=== PATIENT | female | born 1940 | race Caucasian/White ===

== ENCOUNTER 2022-10-28 12:33 | Outpatient (OUT) | payer MEDICARE, SELFPAY ==
--- NOTE | 2022-10-28 13:23 | CA_ITS ---
Patient: VICKY RUSSELL Exam Date: 10/28/2022 : 1940 Gender:F Ordering : DR LUPE RUFFIN M.D. Admission #: [id number] Family : Order #: [id number] CLICK HERE TO VIEW EXAM ECHOCARDIOGRAM REPORT PROCEDURE: CA ECHO DOPPLER COMPLETE INDICATIONS: Nonrheumatic aortic valve stenosis COMPARISON: None. DESCRIPTION: COMPLETE ECHOCARDIOGRAM Real-time transthoracic echocardiography with 2D, M-mode, spectral and color flow Doppler performed. QUALITY: Technical quality was good. LEFT VENTRICLE: Normal chamber size. Normal left ventricular wall thickness. Normal systolic function. LV EF: Normal left ventricular ejection fraction, (>55%). DIASTOLIC: Normal diastolic function. ATRIAL SEPTUM: Visually appears intact. LEFT ATRIUM: Normal chamber size. RIGHT ATRIUM: Normal chamber size. RIGHT VENTRICLE: Normal chamber size. Normal right ventricular systolic function. TRICUSPID VALVE: Normal mobility and thickness. No stenosis with no regurgitation. MITRAL VALVE: Normal mobility and thickness. No evidence of mitral valve stenosis. Mild mitral annular calcification. No mitral regurgitation. AORTIC VALVE: Normal trileaflet appearance. Moderately calcified aortic valve. Moderately diminished mobility. Doppler velocity suggest moderate aortic valve stenosis. DVI 0.31, COOPER 1.1 cm2. No aortic regurgitation. AORTIC ROOT: Normal diameter and appearance. PULMONIC VALVE: Not well visualized. No stenosis. No regurgitation. PERICARDIUM: No evidence of pericardial effusion. IVC: Collapses with inspirations. IVC is normal in size. PLEURA: CONCLUSION: 1. Normal ventricular systolic function. LVEF is 55 to 60%. 2. Moderate aortic valve stenosis. 3. No pericardial effusion. Adult Echocardiography Procedure Report Left Ventricle LVEDD (3.7 - 5.6 cm): 4.99 cm LVESD (2.2 - 4.0 cm): 3.17 cm LVIVS thickness (0.6 - 1.2 cm): 0.90 cm LVPW thickness (0.5 - 1.0 cm): 0.91 cm e': 0.06 m/s E - e': 9.90 LVOT Max Gradient: 2.79 mm[Hg] LVOT Area (cm2): 0.83 m/s Peak Velocity (LVOT): 0.83 m/s Mean Velocity (LVOT): 0.64 m/s LVOT Diameter 2.11 cm Left Atrium LA Volume Index (2D A2C): 30.15 ml/m2 Left Atrium Systolic Dimension: 3.38 cm Mitral Valve MV E to A Ratio: 0.62 Mitral Valve A-Wave Peak Velocity: 0.98 m/s Mitral Valve E-Wave Peak Velocity: 0.61 m/s Right Ventricle Aorta AO Root Diam: 3.28 cm Aortic Valve AoV Area (Peak Jose): 1.20 cm2, 1.10 cm2 AoV Area (VTI): 1.56 cm2, 1.42 cm2 Peak Velocity(Antegrade Flow): 2.64 m/s, 2.33 m/s, 2.31 m/s Peak Gradient(Antegrade Flow): 27.85 mm[Hg], 21.69 mm[Hg], 21.35 mm[Hg] Mean Velocity(Antegrade Flow): 1.99 m/s, 1.38 m/s, 1.50 m/s Mean Gradient(Antegrade Flow): 17.16 mm[Hg], 9.99 mm[Hg], 10.91 mm[Hg] Velocity Time Integral: 51.09 cm, 42.65 cm, 45.52 cm Tricuspid Valve Pulmonic Valve Peak Velocity: 0.94 m/s Peak Gradient: 2.31 mm[Hg], 5.00 mm[Hg] Right Atrium Right Atrium Systolic Pressure: 39.72 ml, 39.72 ml Dictated by: Alonzo Gale M.D. on 10/29/2022 at 18:51 Approved by: Alonzo Gale M.D. on 10/29/2022 at 18:54
== END 2022-10-28 12:34 | disposition home or self-care (01) ==
LOC: CARD 12:34
PROVIDERS: PCP Internal Medicine; Visit Provider Internal Medicine
DX: I35.0 Nonrheumatic aortic (valve) stenosis (principal)
CPT/HCPCS: 93306

== ENCOUNTER 2022-10-30 08:07 | Outpatient (OUT) | payer MEDICARE, SELFPAY ==
--- NOTE | 2022-10-30 08:10 | MR_ITS ---
[address] [address] Patient Name: VICKY RUSSELL MRN: [id number] date: 1940 Sex: F Assigned Patient Location: MRI Current Patient Location: MRI Accession/Order Number: [id number] Exam Date: 10/30/2022 08:35 Report Date: 10/30/2022 11:00 At the request of: LUPE RUFFIN Procedure: MR lumbar spine wo con EXAMINATION: MR lumbar spine wo con HISTORY: Spinal Stenosis Of Lumbar Region M48.062 COMPARISON: No relevant comparison available. TECHNIQUE: A variety of imaging planes and parameters were utilized for visualization of suspected pathology. FINDINGS: For the purposes of numbering, sagittal T2 image # 9 extends from the T11 vertebral body superiorly to the S4 level inferiorly. PARASPINAL AREA: Normal with no visible mass. BONES: Rotatory dextrocurvature centered at L3-L4 CORD/CAUDA EQUINA: Normal caliber, contour, and signal intensity. DISC LEVELS: 12-L1: Early degenerative disc disease is present without focal protrusion or neural impingement. L1-L2: Early degenerative disc disease is present without focal protrusion or neural impingement. L2-L3: Disc collapse, left greater than right. No central or foraminal stenosis L3-L4: Disc collapse, left greater than right. Mild diffuse disc/osteophyte complex. No central or foraminal stenosis. L4-L5: Severe disc space narrowing with endplate sclerosis. Mild diffuse disc/osteophyte complex and facet osteoarthropathy. No central or foraminal stenosis L5-S1: Disc desiccation. Posterior broad-based disc/osteophyte complex and facet osteoarthropathy. No central canal or left foraminal stenosis. Moderate to severe narrowing of the right neural foramen, sagittal image 11 MR/MR lumbar spine wo con IMPRESSION: Degenerative changes most significant at L5-S1 where there is severe narrowing of the right neural foramen Electronically authenticated by: CALVIN SO Date: 10/30/2022 11:00
== END 2022-10-30 08:08 | disposition home or self-care (01) ==
LOC: MRI 08:07
PROVIDERS: PCP Internal Medicine; Visit Provider Internal Medicine
DX: M48.062 Spinal stenosis, lumbar region with neurogenic claudication (principal)
CPT/HCPCS: 72148

== ENCOUNTER 2022-11-10 11:26 | Outpatient (OUT) | payer MEDICARE, SELFPAY ==
--- NOTE | 2022-11-10 12:00 | MM_ITS ---
Patient: VICKY RUSSELL Exam Date: 11/10/2022 : 1940 Gender:F Ordering : DR LUPE RUFFIN M.D. Admission #: [id number] Family : Order #: [id number] CLICK HERE TO VIEW EXAM RADIOLOGY REPORT PROCEDURE: MM TOMOSYNTHESIS SCREENING BI COMPARISON: MG MAMM SCREEN 3D SHEILA CAD, 10/20/2021. INDICATIONS: Screening mammogram Z12.31 Calculator Name NCI Breast Cancer Risk Assessment Tool 5 Year Breast Cancer Risk 1.70% Lifetime Breast Cancer Risk 2.70% Personal Breast Cancer No Personal Ovarian Cancer No Treatments None Family Cancers None LOCATION: [facility] BREAST COMPOSITION: Scattered areas fibroglandular density. FINDINGS: DIAGNOSTIC CATEGORY 0--INCOMPLETE: NEED ADDITIONAL IMAGING EVALUATION. Scattered benign-appearing calcifications are present. RIGHT BREAST: Increase in now 1.1 cm focal asymmetry lower outer quadrant, posterior breast. Spot imaging and ultrasound follow up recommended. . LEFT BREAST: No significant suspicious finding. Stable microclip marker upper inner quadrant, mid breast RECOMMENDATIONS: ADDITIONAL MAMMOGRAPHIC VIEWS REQUIRED: RIGHT BREAST - spot compression ULTRASOUND: RIGHT BREAST PLEASE NOTE: A NORMAL MAMMOGRAM DOES NOT EXCLUDE THE POSSIBILITY OF BREAST CANCER. A CLINICALLY SUSPICIOUS PALPABLE LUMP SHOULD BE BIOPSIED. Dictated by: Jeramie Stout MD on 11/10/2022 at 14:13 Approved by: Jeramie Stout MD on 11/10/2022 at 14:18
== END 2022-11-10 11:27 | disposition home or self-care (01) ==
LOC: MAMMO 11:27
PROVIDERS: PCP Internal Medicine; Visit Provider Internal Medicine
DX: Z12.31 Encounter for screening mammogram for malignant neoplasm of breast (principal); R92.8 Other abnormal and inconclusive findings on diagnostic imaging of breast
CPT/HCPCS: 77063; 77067

== ENCOUNTER 2022-11-19 13:27 | Outpatient (OUT) | payer MEDICARE, SELFPAY ==
--- NOTE | 2022-11-19 13:31 | MM_ITS ---
Patient: VICKY RUSSELL Exam Date: 11/19/2022 : 1940 Gender:F Ordering : DR THANIA NOVAK Admission #: [id number] Family : DR LUPE RUFFIN M.D. Order #: [id number] CLICK HERE TO VIEW EXAM RADIOLOGY REPORT PROCEDURE: MM DIAGNOSTIC MAMMO UNILAT RT, 11/19/2022, 13:22 US BREAST RT LIMITED, 11/19/2022, 13:47 COMPARISON: MM TOMOSYNTHESIS SCREENING BI, 11/10/2022. MG MAMM SCREEN 3D SHEILA CAD, 10/20/2021. MG MAMM SCREEN 3D SHEILA CAD, 09/16/2020. MG MAMM SCREEN SHEILA W CAD, 02/28/2019. INDICATIONS: Abnormal right breast mammogram R92.8 Calculator Name NCI Breast Cancer Risk Assessment Tool 5 Year Breast Cancer Risk 1.70% Lifetime Breast Cancer Risk 2.70% Personal Breast Cancer No Personal Ovarian Cancer No Treatments None Family Cancers None LOCATION: [facility] BREAST COMPOSITION: Scattered areas fibroglandular density. FINDINGS: DIAGNOSTIC CATEGORY 2--BENIGN FINDING: RIGHT BREAST: Spot magnification views demonstrate subtle opacity within posterior lower-outer quadrant suggestive of fibroglandular tissue. Ultrasound evaluation demonstrates normal appearing fibroglandular tissue; no suspicious findings. RECOMMENDATIONS: ROUTINE MAMMOGRAM AND CLINICAL EVALUATION IN 12 MONTHS. PLEASE NOTE: A NORMAL MAMMOGRAM DOES NOT EXCLUDE THE POSSIBILITY OF BREAST CANCER. A CLINICALLY SUSPICIOUS PALPABLE LUMP SHOULD BE BIOPSIED. Dictated by: Keyshawn Whitt M.D. on 11/19/2022 at 14:23 Approved by: Keyshawn Whitt M.D. on 11/19/2022 at 14:25
== END 2022-11-19 13:28 | disposition home or self-care (01) ==
LOC: MAMMO 13:27
PROVIDERS: PCP Internal Medicine; Visit Provider Physician Assistant
DX: R92.8 Other abnormal and inconclusive findings on diagnostic imaging of breast (principal)
CPT/HCPCS: 76642; 77065

== ENCOUNTER 2024-08-24 07:52 | Outpatient (OUT) | payer MEDICARE, SELFPAY ==
--- NOTE | 2024-08-24 08:26 | PM.CN ---
Consult Note: HPI Data of Consult Patient: known to practice within the last 3 years Requesting Physician: Rosenda Israel NP Primary Care Provider: LUPE RUFFIN Consult Narrative Reason for consult: back pain Narrative: Oriana Martin a pleasant 83 year old female presents for evaluation of chronic low back pain >3 years with worsening low back and left leg pain over the last 4 months. Pt has failed to benefit from > 6 weeks of provider guided HEP, heat, ice, tylenol, cannot take NSAIDs due to GERD. denies falls or injury. pain 1/10 aching increasing to 9/10 with standing, walking, sitting, housework, lifting. Pain mildly improved with lying down. currently utilizing tylenol, gabapentin, and magnesium with mild relief. cc:: CC: Rosenda Israel NP Review of Systems ROS Status of ROS 10 or more systems reviewed and unremarkable except as noted in history and below Musculoskeletal Reports: back pain and extremity pain Exam Constitutional Documenting provider has reviewed patient's vital signs: yes Common normals: no apparent distress, oriented x3, healthy appearing, alert and well nourished General appearance: cooperative HENMT Common normals: normocephalic, hearing grossly normal bilaterally and moist oral mucous membranes Head and scalp: normocephalic Eye Common normals: PERRL Pupil: PERRL Neck & C-Spine Common normals: full ROM General: normal visual inspection Chest Common normals: inspection of chest normal Respiratory Common normals: normal respiratory effort, no retractions and no use of accessory muscles Back & Pelvis Lumbar spine/lower back: ROM limited, pain with ROM, lumbar spinal tenderness Lumbar spinal tenderness location: L3, L4 and L5 and straight leg raise positive left Sacroiliac joints: SI joint(s) abnormal Other: decreased sensation left L4,5,S1 strength 4/5 in LLE and 5/5 in RLE left sij positive berlin(patricks), gaenslens, thigh thrust, compression test Extremity Common normals: normal to inspection and full ROM Neuro Common normals: oriented x3 Sensorium/orientation: alert Psych Common normals: mental status grossly normal, thought process normal, cooperative, affect normal, speech normal and activity/motor behavior normal Speech: normal speech Thought process: normal thought process Results Additional Findings Additional findings: If on a controlled substance or opioids, I have checked an [place] report on this patient and there are no aberrancies noted in the prescribing history.??If on a controlled substance or opioid a drug screen was completed and reviewed within the last year, and if there has not been a drug screen completed we ordered one today to monitor higher risk, state monitored pain medication use. As part of providing excellent, safe, comprehensive care, the following was completed at our patient's visit: 1. A medication reconciliation and review to ensure accurate knowledge of current/active medications, including asking our patients to inform us about any [id number] medications or herbal remedies/nutritional supplements/alternative remedies. 2. A review to specifically ensure our patients have had annual screening for screening for depression, screening for tobacco use, and screening for unhealthy alcohol use. For concerning screenings had a discussion with the patient, provided patient education, and recommended follow-up with primary care provider when appropriate. If patient noted with a risk of falling, they received education on strength, gait, and balance training to prevent future risk of falling. Portions of this note may have been carried over from the previous visit and updated as appropriate. Please note this office utilizes paper charting in addition to the electronic medical record. A list of current medications, vitals, and PMH is available there as the clinical staff outside of myself do not have access to [email or web address] charting during the clinic day operations. As part of providing quality comprehensive care the current medications, vitals, and PMH were reviewed in the paper chart. Assessment and Plan Assessment and Plan (1) Lumbar stenosis with neurogenic claudication: Assessment and Plan: The patient has had over 3 months of moderate to severe low back and left leg pain with functional impairment and inadequate response to conservative care including NSAIDS (unless there are contraindication such as concurrent blood thinners), multiple oral or topical pain medications, and home exercise program/physical therapy.? Patient has completed >6 weeks of guided home exercise program and/or formal physical therapy program without relief of their symptoms.? I have reviewed the imaging of the lumbar spine and no red flags were identified.? The imaging from 11/01 reveals radiographic findings consistent with lumbar stenosis with NC, lumbar spondylosis, lumbar DDD The Oswestry Disability Index was completed, and the patient scored a 48%.? The patient noted the following:?? moderate to severe pain impacting ADLs, standing, sitting, travel, social life, and sleep (2) Lumbar spondylosis: (3) Sacroiliitis: Plan 83 year old female with chronic low back and left leg pain has failed conservative measures as noted above, will update lumbar xray with flexion and lumbar MRI without contrast in consideration of interventional therapy vs NS consultation. continue HEP as tolerated. continue current medications, declining additional medications at this time. f/u to review imaging
== END 2024-08-24 07:53 | disposition home or self-care (01) ==
LOC: PM 07:54
PROVIDERS: PCP Internal Medicine; Visit Provider Nurse Practitioner
DX: M48.062 Spinal stenosis, lumbar region with neurogenic claudication (principal); M51.369 Other intervertebral disc degeneration, lumbar region without mention of lumbar back pain or lower extremity pain; M46.1 Sacroiliitis, not elsewhere classified
CPT/HCPCS: 72114; G0463

== ENCOUNTER 2024-08-24 08:41 | Outpatient (OUT) | payer MEDICARE, SELFPAY ==
--- NOTE | 2024-08-24 09:02 | XR_ITS ---
The [place] [id number] Patient Name: VICKY RUSSELL MRN: [id number] date: 1940 Sex: F Assigned Patient Location: LAB Current Patient Location: LAB Accession/Order Number: [id number] Exam Date: 08/24/2024 10:20 Report Date: 08/24/2024 10:24 At the request of: ESME PADILLA NP Procedure: XR lumbar spine 6V w bending XR lumbar spine 6V w bending 08/24/2024 9:04 AM SIGNS AND SYMPTOMS: Chronic low back pain with left lower extremity radiculopathy PROTOCOLS: Frontal, lateral, oblique, and flexion-extension views of the lumbar spine COMPARISON: 10/30/2022 FINDINGS: There is a dextro convex curvature of the lumbar spine. There is severe intervertebral disc height loss at L2-L3, L3-4, and L4-5 with to moderate disc height loss at L5-S1. There is accompanying anterior osteophyte formation throughout. There is facet hypertrophy throughout. Flexion and extension view show no pathologic movement. Vertebral body heights are maintained. Mild degenerative changes are noted in the sacroiliac joints. Atherosclerotic changes are noted in the abdominal aorta. There is evidence of prior cholecystectomy. XR/XR lumbar spine 6V w bending IMPRESSION: Significant multilevel degenerative changes redemonstrated similar to the prior MRI. There is a dextro convex curvature. No pathologic movement on flexion or extension. Impression dictated by: Nikita Dean M.D. 08/24/2024 10:24 AM Dictation Location: [facility] Electronically authenticated by: [id number] Y Date: 08/24/2024 10:24
== END 2024-08-24 08:42 | disposition home or self-care (01) ==
LOC: LAB 08:43
PROVIDERS: PCP Internal Medicine; Visit Provider Nurse Practitioner
DX: M48.062 Spinal stenosis, lumbar region with neurogenic claudication (principal); M51.369 Other intervertebral disc degeneration, lumbar region without mention of lumbar back pain or lower extremity pain
CPT/HCPCS: 72114

== ENCOUNTER 2024-09-12 09:21 | Outpatient (OUT) | payer MEDICARE, SELFPAY ==
--- NOTE | 2024-09-12 09:26 | MR_ITS ---
The [address] [address] Patient Name: VICKY RUSSELL MRN: [id number] date: 1940 Sex: F Assigned Patient Location: MRI Current Patient Location: MRI Accession/Order Number: [id number] Exam Date: 09/12/2024 11:46 Report Date: 09/12/2024 11:51 At the request of: ESME PADILLA NP Procedure: MR lumbar spine wo con MR lumbar spine wo con 09/12/2024 10:24 AM SIGNS AND SYMPTOMS: Chronic low back pain with radiculopathy radiating into left lower extremity PROTOCOL: Multiplanar multisequence MR images of the lumbar spine without IV contrast COMPARISON: 10/30/2022 FINDINGS: There is a dextro convex curvature of the lumbar spine similar to the prior exam. The bones are in anatomic alignment otherwise. There is preservation of vertebral body heights. There is Schmorl's information the endplates at T12, L1, and L4. There is moderate severe disc height loss at L2-L3, L3-L4, and L4-5. There is mild disc height loss throughout otherwise. There is Modic type I endplate edema at T12-L1, L1-L2, and L5-S1. The conus terminates at the L1-L2 intervertebral disc level. No epidural or paraspinous fluid collection is appreciated. At T12-L1: There is a broad-based disc bulge with endplate osteophyte formation contributing to mild right neural foraminal narrowing. No spinal canal narrowing. At L1-L2: There is a broad-based disc bulge with a right foraminal focal disc protrusion. There is accompanying facet hypertrophy. There is mild left and moderate right neural foraminal narrowing with mild spinal canal narrowing. This is similar to the prior study. At L2-L3: There is a broad-based disc bulge with facet hypertrophy and endplate osteophyte formation. There is moderate left neural foraminal narrowing with mild spinal canal stenosis similar to the prior exam. At L3-L4: There is a broad-based disc bulge with endplate osteophyte formation and facet hypertrophy contributing to mild to moderate bilateral neural foraminal narrowing. There is posterior decompression without significant spinal canal narrowing. This is similar to the prior exam. At L4-L5: There is a broad-based disc bulge with endplate osteophyte formation and facet hypertrophy. There is moderate right and mild left neural foraminal narrowing. There is evidence of prior posterior decompression without spinal canal stenosis. This is unchanged. At L5-S1: There is a broad-based disc bulge with endplate osteophyte formation and facet hypertrophy. There is mild left and severe right neural foraminal narrowing with mass effect on the exiting right L5 nerve roots. This is unchanged. There is minimal spinal canal narrowing. MR/MR lumbar spine wo con IMPRESSION: At L5-S1: There is a broad-based disc bulge with endplate osteophyte formation and facet hypertrophy. There is mild left and severe right neural foraminal narrowing with mass effect on the exiting right L5 nerve roots. This is unchanged. There is minimal spinal canal narrowing. Additional but lesser degrees of degenerative changes are redemonstrated similar to the prior exam as above. Impression dictated by: Nikita Dean M.D. 09/12/2024 11:51 AM Dictation Location: [place] [address] Electronically authenticated by: [id number] Y Date: 09/12/2024 11:51
== END 2024-09-12 09:22 | disposition home or self-care (01) ==
LOC: MRI 09:21
PROVIDERS: PCP Internal Medicine; Visit Provider Nurse Practitioner
DX: M48.062 Spinal stenosis, lumbar region with neurogenic claudication (principal); M51.379 Other intervertebral disc degeneration, lumbosacral region without mention of lumbar back pain or lower extremity pain; M51.369 Other intervertebral disc degeneration, lumbar region without mention of lumbar back pain or lower extremity pain
CPT/HCPCS: 72148

== ENCOUNTER 2024-09-21 08:28 | Outpatient (OUT) | payer MEDICARE, SELFPAY ==
--- NOTE | 2024-09-21 08:59 | PM.CN ---
Consult Note: HPI Data of Consult Patient: known to practice within the last 3 years Requesting Physician: Rosenda Israel NP Primary Care Provider: LUPE RUFFIN Consult Narrative Reason for consult: back pain Narrative: Oriana Martin a pleasant 83 year old female presents for evaluation of chronic low back pain >3 years with worsening low back and left leg pain over the last 5 months. Pt has failed to benefit from > 6 weeks of provider guided HEP, heat, ice, tylenol, cannot take NSAIDs due to GERD. denies falls or injury. pain 5/10 sharp increasing to 9/10 with standing, walking, sitting, housework, lifting. Pain mildly improved with lying down. currently utilizing tylenol, gabapentin, and magnesium with mild relief. Recently underwent lumbar xray and MRI. cc:: CC: Rosenda Israel NP Review of Systems ROS Status of ROS 10 or more systems reviewed and unremarkable except as noted in history and below Musculoskeletal Reports: back pain and extremity pain Exam Constitutional Documenting provider has reviewed patient's vital signs: yes Common normals: no apparent distress, oriented x3, healthy appearing, alert and well nourished General appearance: cooperative HENMT Common normals: normocephalic, hearing grossly normal bilaterally and moist oral mucous membranes Head and scalp: normocephalic Eye Common normals: PERRL Pupil: PERRL Neck & C-Spine Common normals: full ROM General: normal visual inspection Chest Common normals: inspection of chest normal Respiratory Common normals: normal respiratory effort, no retractions and no use of accessory muscles Back & Pelvis Lumbar spine/lower back: ROM limited, pain with ROM, lumbar spinal tenderness Lumbar spinal tenderness location: L3, L4 and L5 and straight leg raise positive left Sacroiliac joints: SI joint(s) abnormal Other: decreased sensation left L4,5,S1 strength 4/5 in LLE and 5/5 in RLE left sij positive berlin(patricks), gaenslens, thigh thrust, compression test Extremity Common normals: normal to inspection and full ROM Neuro Common normals: oriented x3 Sensorium/orientation: alert Psych Common normals: mental status grossly normal, thought process normal, cooperative, affect normal, speech normal and activity/motor behavior normal Speech: normal speech Thought process: normal thought process Results Imaging Lumbar MRI: Attestation: I have reviewed the pertinent imaging results. Radiologist's impression: FINDINGS: There is a dextro convex curvature of the lumbar spine similar to the prior exam. The bones are in anatomic alignment otherwise. There is preservation of vertebral body heights. There is Schmorl's information the endplates at T12, L1, and L4. There is moderate severe disc height loss at L2-L3, L3-L4, and L4-5. There is mild disc height loss throughout otherwise. There is Modic type I endplate edema at T12-L1, L1-L2, and L5-S1. The conus terminates at the L1-L2 intervertebral disc level. No epidural or paraspinous fluid collection is appreciated. At T12-L1: There is a broad-based disc bulge with endplate osteophyte formation contributing to mild right neural foraminal narrowing. No spinal canal narrowing. At L1-L2: There is a broad-based disc bulge with a right foraminal focal disc protrusion. There is accompanying facet hypertrophy. There is mild left and moderate right neural foraminal narrowing with mild spinal canal narrowing. This is similar to the prior study. At L2-L3: There is a broad-based disc bulge with facet hypertrophy and endplate osteophyte formation. There is moderate left neural foraminal narrowing with mild spinal canal stenosis similar to the prior exam. At L3-L4: There is a broad-based disc bulge with endplate osteophyte formation and facet hypertrophy contributing to mild to moderate bilateral neural foraminal narrowing. There is posterior decompression without significant spinal canal narrowing. This is similar to the prior exam. At L4-L5: There is a broad-based disc bulge with endplate osteophyte formation and facet hypertrophy. There is moderate right and mild left neural foraminal narrowing. There is evidence of prior posterior decompression without spinal canal stenosis. This is unchanged. At L5-S1: There is a broad-based disc bulge with endplate osteophyte formation and facet hypertrophy. There is mild left and severe right neural foraminal narrowing with mass effect on the exiting right L5 nerve roots. This is unchanged. There is minimal spinal canal narrowing. Additional Findings Additional findings: If on a controlled substance or opioids, I have checked an [place]AR[place] report on this patient and there are no aberrancies noted in the prescribing history.??If on a controlled substance or opioid a drug screen was completed and reviewed within the last year, and if there has not been a drug screen completed we ordered one today to monitor higher risk, state monitored pain medication use. As part of providing excellent, safe, comprehensive care, the following was completed at our patient's visit: 1. A medication reconciliation and review to ensure accurate knowledge of current/active medications, including asking our patients to inform us about any [id number] medications or herbal remedies/nutritional supplements/alternative remedies. 2. A review to specifically ensure our patients have had annual screening for screening for depression, screening for tobacco use, and screening for unhealthy alcohol use. For concerning screenings had a discussion with the patient, provided patient education, and recommended follow-up with primary care provider when appropriate. If patient noted with a risk of falling, they received education on strength, gait, and balance training to prevent future risk of falling. Portions of this note may have been carried over from the previous visit and updated as appropriate. Please note this office utilizes paper charting in addition to the electronic medical record. A list of current medications, vitals, and PMH is available there as the clinical staff outside of myself do not have access to [employer] charting during the clinic day operations. As part of providing quality comprehensive care the current medications, vitals, and PMH were reviewed in the paper chart. Assessment and Plan Assessment and Plan (1) Lumbar stenosis with neurogenic claudication: Assessment and Plan: The patient has had over 3 months of moderate to severe low back and left leg pain with functional impairment and inadequate response to conservative care including NSAIDS (unless there are contraindication such as concurrent blood thinners), multiple oral or topical pain medications, and home exercise program/physical therapy.? Patient has completed >6 weeks of guided home exercise program and/or formal physical therapy program without relief of their symptoms.? I have reviewed the imaging of the lumbar spine and no red flags were identified.? The imaging reveals radiographic findings consistent with lumbar stenosis with NC, lumbar spondylosis, lumbar DDD The Oswestry Disability Index was completed, and the patient scored a 31%.? The patient noted the following:?? moderate to severe pain impacting ADLs, standing, sitting, travel, social life, and sleep We discussed the risks and benefits of the procedure with the patient, and we are NOT planning on using sedation as outlined in the guidelines from Medicare unless there is a documented reason that sedation would be strongly recommended.?? ?The procedure will be completed with fluoroscopic guidance.? (2) Lumbar spondylosis: (3) Sacroiliitis: Plan 83 year old female with chronic low back and left leg pain has failed conservative measures as noted above, lumbar xray and MRI reviewed with pt. Will proceed with left L4-5 L5-S1 TFESI under fluoroscopy for lumbar stenosis with NC. consider left SIJ injection if symptoms persist. medications reviewed, pt advised to increase gabapentin 300mg BID risks vs benefits reviewed. continue HEP as tolerated. f/u 2 weeks after injection
== END 2024-09-21 08:29 | disposition home or self-care (01) ==
LOC: PM 08:28
PROVIDERS: PCP Internal Medicine; Visit Provider Nurse Practitioner
DX: M48.062 Spinal stenosis, lumbar region with neurogenic claudication (principal); M47.816 Spondylosis without myelopathy or radiculopathy, lumbar region; M46.1 Sacroiliitis, not elsewhere classified
CPT/HCPCS: G0463

== ENCOUNTER 2024-10-02 10:34 | Day surgery (SDC) | payer MEDICARE, SELFPAY ==
--- OUTSIDE RECORDS SUMMARY | 2024-10-02 10:38 | XMS_ITS | Encounter Summary ---
Author Organization [facility] Address [address] [facility] [place] [address] Care Team Providers Care Hostess Party Sales Representative Name Role Phone Miguel Ray MD Unavailable [phone] Miguel Ray MD Primary Care Provider [phone] Encounter Details Date Type Department Care Team (Late Contact Info) Description 07/08/2023 Abstract [facility] [address] [facility] [address] [place] [address] Miguel Ray MD 112 [facility] 110 [place] [address] Social History Tobacco Use Types Packs/Day Years Used Date Smoking Tobacco: Never Smokeless Tobacco: Never Alcohol Use Standard Drinks/Week Comments Never 0 (1 standard drink = 0.6 oz pur e alcohol) Caffeine intake: coffee PHQ-2 Answer Date Recorded Patient Health Questionnaire-2 Score 0 10/12/2022 Comments Unknown Sex and Gender Information Value Date Recorded Sex Assigned at Not on file Legal Sex Female 6:59 PM EDT Gender Identity Not on file Sexual Orientation Not on file documented as of this encounter Plan of Treatment Upcoming Encounters Date Type Department Care Team (Late Contact Info) Description 10/25/2024 9:30 AM EDT Office Visit [facility] 112 [facility] 110 [place] [phone] Miguel Ray MD 112 [facility] 110 [place] [address] 11/09/2024 1:10 PM EDT Office Visit [facility] [address] [place] [address] Yaniv Jarrett, DPM FACFAS [address] [facility] [place] [address] documented as of this encounter Visit Diagnoses Not on filedocumented in this encounter Care Teams Hostess Party Sales Representative Relationship Specialty Start Date End Date Miguel Ray MD [address] [facility] 110 [place] [address] PCP - [employer] 04/12/22 Miguel Ray MD [address] [facility] 110 [place] [address] PCP - General Internal Medicine 09/08/22 documented as of this encounter
--- OUTSIDE RECORDS SUMMARY | 2024-10-02 10:38 | XMS_ITS | Encounter Summary ---
Author Organization [facility] Address [address] [facility] [place] [address] Care Team Providers Care Industrial Welder Name Role Phone Miguel Ray MD Unavailable [phone] Miguel Ray MD Primary Care Provider [phone] Encounter Details Date Type Department Care Team (Late Contact Info) Description 01/25/2024 Abstract [facility] 112 [facility] 110 [place] [address] Miguel Ray MD 112 [facility] 110 [place] [address] Social History Tobacco Use Types Packs/Day Years Used Date Smoking Tobacco: Never Smokeless Tobacco: Never Alcohol Use Standard Drinks/Week Comments Never 0 (1 standard drink = 0.6 oz pur e alcohol) Caffeine intake: coffee PHQ-2 Answer Date Recorded Patient Health Questionnaire-2 Score 0 09/30/2023 Comments Unknown Sex and Gender Information Value Date Recorded Sex Assigned at Not on file Legal Sex Female 6:59 PM EDT Gender Identity Not on file Sexual Orientation Not on file documented as of this encounter Plan of Treatment Upcoming Encounters Date Type Department Care Team (Late Contact Info) Description 10/25/2024 9:30 AM EDT Office Visit [facility] [address] [facility] 110 [place] [phone] Miguel Ray MD 112 [facility] 110 [place] [address] 11/09/2024 1:10 PM EDT Office Visit [facility] [address] [place] [address] Yaniv Jarrett, SAMIM FACFAS [address] [place] [address] documented as of this encounter Visit Diagnoses Not on filedocumented in this encounter Additional Health Concerns Assessment Noted Time PHQ-9 Depression Total Score: 1 09/30/19 24 10:00 AM EDT documented as of this encounter Care Teams Industrial Welder Relationship Specialty Start Date End Date Miguel Ray MD 112 [facility] 110 [place] [address] PCP - [employer] 04/12/22 Miguel Ray MD [address] [facility] 110 [place] [address] PCP - General Internal Medicine 09/08/22 documented as of this encounter
--- OUTSIDE RECORDS SUMMARY | 2024-10-02 10:38 | XMS_ITS | Encounter Summary ---
Author Organization [facility] Address [address] [facility] [place] [address] Care Team Providers Care Bench Scientist Name Role Phone Miguel Ray MD Unavailable [phone] Miguel Ray MD Primary Care Provider [phone] Encounter Details Date Type Department Care Team (Late Contact Info) Description 05/30/2024 Abstract [facility] 112 [facility] 110 [place] [address] Miguel Ray MD 112 [facility] 110 [place] [address] Social History Tobacco Use Types Packs/Day Years [...] Office Visit [facility] 112 [facility] 110 [place] [phone] Miguel Ray MD 112 [facility] 110 [place] [address] 11/09/2024 1:10 PM EDT Office Visit [facility] [address] [place] [address] Yaniv Jarrett, SAMIM FACFAS [address] [place] [address] documented as of this encounter Visit Diagnoses Not on filedocumented in this encounter Additional Health Concerns Assessment Noted Time PHQ-9 Depression Total Score: 1 09/30/19 24 10:00 AM EDT documented as of this encounter Care Teams Bench Scientist Relationship Specialty Start Date End Date Miguel Ray MD [address] [facility] 110 [place] [address] PCP - [employer] 04/12/22 Miguel Ray MD [address] [facility] 110 [place] [address] PCP - General Internal Medicine 09/08/22 documented as of this encounter
--- OUTSIDE RECORDS SUMMARY | 2024-10-02 10:38 | XMS_ITS | Encounter Summary ---
Author Organization [facility] Address [address] [place] [address] Care Team Providers Care Director Of Community Center Name Role Phone Miguel Ray MD Unavailable [phone] Miguel Ray MD Primary Care Provider [phone] Encounter Details Date Type Department Care Team (Late st Contact Info) Description 10/11/2022 Abstract [facility] [address] [facility] 110 [place] [phone] Miguel Ray MD [address] [facility] 110 [place] [address] Social History Tobacco Use Types Packs/Day Years Used Date Smoking Tobacco: Never Smokeless Tobacco: Never Alcohol Use Standard Drinks/Week Comments Never 0 (1 standard drink = 0.6 oz pur e alcohol) PHQ-2 Answer Date Recorded Patient Health Questionnaire-2 Score 0 10/12/2022 Comments Unknown Sex and Gender Information Value Date Recorded Sex Assigned at Not on file Legal Sex Female 6:59 PM EDT Gender Identity Not on file Sexual Orientation Not on file documented as of this encounter Functional Status * Over the past 2 weeks, how often have you been bothered by any of the following problems? Question Answer Date of Assessment Author Little interest or pleasure in doing things Not at all 10/12/2022 1:00 PM [facility] N Feeling down, depressed, or hopeless Not at all 10/12/2022 1:00 PM EDT [facility] N Patient Health Questionnaire -2 Score 0 10/12/2022 1:00 PM EDT Meggan Rosa [facility] N documented as of this encounter Plan of Treatment Upcoming Encounters Date Type Department Care Team (Late st Contact Info) Description 10/25/2024 9:30 AM EDT Office Visit [facility] [address] [facility] 110 [place] [phone] Miguel Ray MD [address] [facility] 110 [place] [address] 11/09/2024 1:10 PM EDT Office Visit [facility] [address] [place] [phone] DolYaniv christine, DPM FACFAS [address] [place] [address] documented as of this encounter Visit Diagnoses Not on filedocumented in this encounter Care Teams Director Of Community Center Relationship Specialty Start Date End Date Miguel Ray MD [address] [facility] 110 [place] [address] PCP - [employer] 04/12/22 Miguel Ray MD [address] [facility] 110 [place] [address] PCP - General Internal Medicine 09/08/22 documented as of this encounter
--- OUTSIDE RECORDS SUMMARY | 2024-10-02 10:38 | XMS_ITS | Clinical Summary ---
Author Organization [facility] Address [address] [place], [place] [address] Care Team Providers Care Inside Sales Specialist Name Role Phone Cory BATEMAN MD, Miguel Mendoza Primary Care Provider [phone] Allergies Active Allergy Reactions Criticality Noted Date Comments Penicillins Rash,Hives,Itching 01/24/2013 Medications metFORMIN 1,000 mg tablet Take 1 tablet by mouth once daily. 10/27/19 14 Active hydroxychloroquin e (PLAQUENIL) 200 mg tabletIndications :Erosive osteoarthritis of multiple sites take one tab twice a day with a meal, sunscreen when outdoors, see building engineer every 6-12months while on med 180 tablet 3 07/23/19 17 Active meloxicam (MOBIC) 15 mg tabletIndications :Pain in both hands,Multiple joint pain,Erosive osteoarthritis of multiple sites Take 1 tablet by mouth once daily. With food for pain. 90 tablet 3 07/23/19 17 Active ergocalciferol, vitamin D2, (DRISDOL) 50,000 unit capsuleIndication s:Vitamin D deficiency (take by mouth with food twice a week, ONE CAPSULE ON WEDNESDAY AND ONE ON WEDNESDAY) FOR A TOTAL OF 8 WEEKS. 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 07/22/2016 Hip pain, bilateral 07/22/2016 Long-term use of Plaquenil 07/22/2016 Bilateral hand swelling 02/13/2015 Personal history of (healed) other pathological fracture 10/26/2013 Vitamin D deficiency 01/25/2013 Hand pain 08/02/2012 Fatigue 08/02/2012 Family history of rheumatoid arthritis 3 Multiple joint pain 08/02/2012 Social History Tobacco Use Types Packs/Day Years Used Date Smoking Tobacco: Never Alcohol Use Standard Drinks/Week Comments Not Asked 0 (1 standard drink = 0.6 oz pur e alcohol) Comments No Sex and Gender Information Value Date Recorded Sex Assigned at Not on file Legal Sex Female 9:17 AM EST Gender Identity Not on file Sexual Orientation Not on file Last Filed Vital Signs Vital Sign Reading Time Taken Comments Blood Pressure 118/64 07/22/2016 12:28 PM EDT Pulse 66 07/22/2016 12:28 PM EDT Temperature 36.2 C (97.2 F) 10/26/2013 8:03 AM EDT Respiratory Rate - - Oxygen Saturation 99% 07/22/2016 12:28 PM EDT Inhaled Oxygen Concentration - - Weight 98.4 kg (217 lb) 07/22/2016 12:28 PM EDT Height 165.1 cm (5' 5 ) 08/02/2012 11:03 AM EDT Body Mass Index 36.11 08/02/2012 11:03 AM EDT Plan of Treatment Health Maintenance Due Date Last Done Comments Anxiety Screening 1958 Depression Screening 1958 DTaP,Tdap,Td Vaccine (1 - Tdap) 1961 Pneumococcal Vaccine: 50+ (1 of 1 - PCV) 1992 Shingrix Vaccine (1 of 2) 1992 RSV Vaccine (1 - 1-dose 75+ series) 2017 Diabetes Screening 07/23/2019 07/22/2016, 0 09/16/2015, 07/27/2014, Additional history exists Covid-19 Vaccine ( - 2023-2 5 season) 2023 Advance Directive Discussion 04/12/2024 Influenza Vaccine (Season Ended) 2024 Bone Density Screening Completed 01/22/2016, 2013 Procedures Procedure Name Priority Date/Time Associated Diagnosis Comments COMPREHENSIVE METABOLIC PANEL Routine 07/22/2016 12:55 PM EDT Elevated LFTs BMD BONE DENSITY Routine 01/22/2016 1:31 PM EDT Osteopenia from Last 3 Months or Most Recently Relevant to Health Maintenance Results * (ABNORMAL) COMP METABOLIC PANEL (07/22/2016 12:55 PM EDT) [facility] Protein, Total 7.2 6.3 - 8.0 g/dL 07/22/2016 11:05 PM [facility] Albumin 3.8(L) 3.9 - 4.9 g/dL 07/22/2016 11:05 PM [facility] Calcium 9.9 8.5 - 10.2 mg/dL 07/22/2016 11:05 PM [facility] Bilirubin, Total 0.4 0.2 - 1.3 mg/dL 07/22/2016 11:05 PM [facility] Alkaline Phosphatase 77 32 - 117 U/L 07/22/2016 11:05 PM [facility] AST 20 13 - 35 U/L 07/22/2016 11:05 PM [facility] Glucose 108(H) 74 - 99 mg/dL 07/22/2016 11:05 PM [facility] Comment: The Citizen [place] Diabetes Association (ADA) provides guidance for cutoff values for fasting glucose and random glucose. The ADA defines fasting as no caloric intake for at least 8 hours. Fasting plasma glucose results between 100 to 125 mg/dL indicate increased risk for diabetes (prediabetes). Fasting plasma glucose results greater than or equal to 126 mg/dL meet the criteria for diagnosis of diabetes. In the absence of unequivocal hyperglycemia, results should be confirmed by repeat testing. In a patient with classic symptoms of hyperglycemia or hyperglycemic crisis, random plasma glucose results greater than or equal to 200 mg/dL meet the criteria for diagnosis of diabetes. Reference: Standards of Medical Care in Diabetes 2016, Citizen [place] Diabetes Association. Diabetes Care. 2016.39(Suppl 1). BUN 20 7 - 21 mg/dL 07/22/2016 11:05 PM [facility] Creatinine 0.71 0.58 - 0.96 mg/dL 07/22/2016 11:05 PM [facility] Sodium 140 136 - 144 mmol/L 07/22/2016 11:05 PM [facility] Potassium 4.6 3.7 - 5.1 mmol/L 07/22/2016 11:05 PM [facility] Chloride 102 97 - 105 mmol/L 07/22/2016 11:05 PM EDT [facility] CO2 24 22 - 30 mmol/L 07/22/2016 11:05 PM EDT [facility] Anion Gap 14 9 - 18 mmol/L 07/22/2016 11:05 PM EDT [facility] ALT 11 7 - 38 U/L 07/22/2016 11:05 PM EDT [facility] eGFR- >60 07/22/2016 11:05 PM EDT [facility] eGFR-All Other Races >60 . 07/22/2016 11:05 PM EDT [facility] Comment: eGFR (Estimated GFR) Units of measure: mL/min/1.73 meters squared eGFR is derived from the reexpressed MDRD Study equation using the following parameters: serum creatinine, age, gender and race. The creatinine assay has been calibrated to be traceable to IDMS. An eGFR <60 mL/min/1.73m2 for >3 months is consistent with chronic kidney disease. Refer to KDOQI guidelines for clinical interpretation. In patients with unstable renal function, e.g. those with acute kidney injury, the eGFR may not accurately reflect actual GFR. Blood specimen (specimen) BLOOD SPECIMEN / Unknown 07/22/2016 12:55 PM EDT 07/22/2016 12:58 PM EDT Shirley Antony MD LABORATORY Final Result [facility] [address] [facility] [place] [address] * BMD BONE DENSITY (01/22/2016 1:31 PM EDT) Anatomical Region Laterality Modality Other 01/22/2016 1:31 PM EDT Impressions 01/24/2016 11:46 PM EDT IMPRESSION: THE LOWEST T-SCORE IS -0.9 1) DIAGNOSIS (based on BMD alone): NORMAL BONE DENSITY The lowest T-score is used for diagnosis/impression Z-scores will be reported if <-1.0 or if > or = to+3.0 Note that regardless of bone mineral density measurement, a patient may be clinically diagnosed with osteoporosis if they have had a prior fragility fracture. Caution: Medical conditions other than osteoporosis may cause low bone density, such as osteomalacia or renal osteodystrophy. Clinical correlation is necessary. 2) FRACTURE RISK (based on BMD alone): NOT INCREASED Caution: Fracture risk may be increased independent of BMD in patients with corticosteroid use, age greater than 65 years, or a history of prior fragility fracture. The lowest T-score is used for diagnosis. Z-scores will be reported if <-1.0 or if > or = +3.0 RECOMMENDATIONS: Consider x-ray of the thoracic(with swimmers views) and lumbar spine to further evaluate for vertebral compression fractures, given patient's reported height loss. Comparison represents decrease in bone mineral density as listed above. Clinical correlation by the ordering physician is necessary for bone loss evaluation. Note that some medical conditions may cause low bone density, such as osteomalacia, vitamin D deficiency, multiple myeloma, renal osteodystrophy, hyperparathyroidism, hypogonadism, certain endocrinologic conditions, inflammatory arthropathies, gastrointestinal diseases and malabsorption, and certain medications such as, but not limited to, systemic steroids, anticonvulsants, clinical correlation is necessary. Evaluation of vitamin D status is recommended All patients should receive the recommended daily allowance of calcium and vitamin D, as recommended by the NOF and clinically indicated. Weight bearing exercises and strength training should be considered. Cessation of smoking and moderation of intake of alcohol, caffeine and carbonated beverages are recommended (for additional information please refer to NOF website at www.nof.org). Evaluation for secondary causes of bone loss is recommended in patients with a Z-score of less than -1.5 (see web-site for more details). Patients who have had a height loss of 1.5 inches or more since their peak height (tallest height), should be considered for evaluation of vertebral compression fractures by x-ray of the thoracic(with swimmers views) and lumbar spine. RECOMMENDATIONS FOR PHARMACOLOGIC THERAPY: National Osteoporosis Foundation (NOF) treatment recommendations (2008) Postmenopausal women and men age 50 and older presenting with the following should be treated: A hip or vertebral (clinical or morphometric) fracture T-score less than or equal to -2.5 at the femoral neck, total hip or spine after appropriate evaluation to exclude secondary causes For patients not on pharmacologic therapy for more than 2 years, the following recommendations may apply: Low bone mass (T-score between -1.0 and -2.5 at the femoral neck, total hip or spine) and 10 year probability of hip fracture greater than or equal to 3% or a 10 year probability of any major osteoporosis-related fracture greater than or equal to 20% based on the [place].- adapted WHO algorithm for FRAX(TM): www.servando.ac.uk/FRAX/tool.jsp or The WHO Fracture Risk Assessment Tool at www.NOF.org PLEASE NOTE: THE DXA SCANNER USED FOR THIS PATIENT IS LISTED IN THE ABOVE DEMOGRAPHICS. THE TYPE OF SCANNER MUST BE ENTERED IN THE FRAX(TM) CALCULATOR TO CORRECT FOR DXA SCANNER VARIABILITY. PLEASE NOTE FRAX(TM) + Does not apply to premenopausal patients + DOES NOT APPLY TO TREATED OR PREVIOUSLY TREATED PATIENTS within past 2 years, please review updates from website listed above. ALL RECOMMENDATIONS AND CALCULATIONS ARE TO BE CONSIDERED GUIDELINES AND SHOULD NOT REPLACE SOUND CLINICAL JUDGMENT Follow-up in 3 to 5 years or as clinically indicated. Patients that are taking corticosteroids, are transplant recipients or have hyperparathyroidism should have annual follow-up. Follow-up scans should always be done on the same machine for accurate comparison. FOR MORE INFORMATION: [facility] for Osteoporosis and Metabolic Bone Disease: www.ccf.org/arthritis/osteo National Osteoporosis Foundation: www.nof.org International Society of Clinical Densitometry www.iscd.org Trench Shovel Operator: [id number] Transcribe Date/Time: Jan 22 2016 1:38P Dictated by : BETH GAY MD This examination was interpreted and the report reviewed and electronically signed by: BETH GAY MD on Jan 24 2016 11:44PM EST Narrative 01/24/2016 11:46 PM EDT * * *Final Report* * * DATE OF EXAM: Jan 22 2016 1:31PM LNB [id number] - BD AP SPINE/HIP SHEILA / PROCEDURE REASON: Other specified disorders of bone density and structure, unspecified site * * * * Physician Interpretation * * * * RESULT: EXAM: DXA BONE DENSITOMETRY PATIENT DEMOGRAPHICS: Age: 75 years, Race: , Gender: Female SCANNER INFORMATION: DXA Model: LookFlow W (S/N: [id number]) SITE SCANNED: Lumbar spine and bilateral hips Date Scanned: 01/22/2016 1:31 PM Date of prior scan(s): 01/16/2014 HISTORY: RISK FACTORS FOR OSTEOPOROSIS AND ASSOCIATED FRACTURES REPORTED BY THIS PATIENT: Postmenopausal female Age Height loss of 1.5 inches or more Patient reported-rheumatoid arthritis Vitamin D deficiency CURRENT THERAPY: None TECHNICAL LIMITATIONS: Degenerative disease of the spine, scoliosis. RESULTS: Lumbar spine (L1-L4): 1.328 g/cm2, T-score +2.6, Z-score +4.9 Lumbar spine: 2013: 1.325 g/cm2 No statistically significant change Right Femoral Neck: 0.753 g/cm2, T-score -0.9, Right Femoral Neck: 2013: 0.849 g/cm2 Statistically significant decrease by 7.5% Right Total Hip: 0.898 g/cm2, T-score -0.4, Right Total Hip: 2013: 0.951 g/cm2 Statistically significant decrease by 5.5% Left Femoral Neck: 0.785 g/cm2, T-score -0.6, Left Femoral Neck: 2013: 0.766 g/cm2 No statistically significant change Left Total Hip: 1.049 g/cm2, T-score +0.9, Left Total Hip: 2013: 1.059 g/cm2 No statistically significant change CHANGE IS STATISTICALLY SIGNIFICANT IN THE SPINE OR HIP IF GREATER THAN OR EQUAL TO 0.04g/cm2 Shirley Antony MD BONE DENSITY Final Result from Last 3 Months or Most Recently Relevant to Health Maintenance Insurance [facility] MEDICARE Care Teams Inside Sales Specialist Relationship Specialty Start Date End Date Miguel Ray II, MD PCP - General Internal Medicine 08/02/12
--- OUTSIDE RECORDS SUMMARY | 2024-10-02 10:38 | XMS_ITS | Encounter Summary ---
Author Organization [facility] Address [address] [place] [place] [address] Care Team Providers Care Powder Truck Driver Name Role Phone Miguel Ray MD Unavailable [phone] Migule Ray MD Primary Care Provider [phone] Encounter Details Date Type Department Care Team (Late Contact Info) Description 06/17/2023 Abstract [facility] [address] [facility] [address] [place] [address] Miguel Ray MD 112 [facility] 110 [place] [address] Social History Tobacco Use Types Packs/Day Years [...] Office Visit [facility] [address] [facility] 110 [place] [phone] Miguel Ray MD 112 [facility] 110 [place] [address] 11/09/2024 1:10 PM EDT Office Visit [facility] [address] [place] [address] Yaniv Jarrett, DPM FACFAS [address] [facility] [place] [address] documented as of this encounter Visit Diagnoses Not on filedocumented in this encounter Care Teams Powder Truck Driver Relationship Specialty Start Date End Date Miguel Ray MD [address] [facility] [address] [place] [address] PCP - [employer] 04/12/22 Miguel Ray MD [address] [facility] [address] [place] [address] PCP - General Internal Medicine 09/08/22 documented as of this encounter
--- OUTSIDE RECORDS SUMMARY | 2024-10-02 10:38 | XMS_ITS | Encounter Summary ---
Author Organization [facility] Address [address] [facility] [place] [address] Care Team Providers Care Pressfitter Name Role Phone Miguel Ray MD Unavailable [phone] Miguel Ray MD Primary Care Provider [phone] Encounter Details Date Type Department Care Team ([facility] Contact Info) Description 10/26/2022 Abstract [facility] 112 [facility] [address] [place] [address] Miguel Ray MD [address] [facility] 110 [place] [address] Social History Tobacco Use Types Packs/Day Years [...] EDT Office Visit [facility] [address] [facility] [address] [place] [phone] Miguel Ray MD [address] [facility] 110 [place], [place] [id number] 11/09/2024 1:10 PM EDT Office Visit [facility] [address] [place] [phone] Yaniv Jarrett, DPM FACFAS [address] [place] [address] [place], [place] [id number] documented as of this encounter Visit Diagnoses Not on filedocumented in this encounter Care Teams Pressfitter Relationship Specialty Start Date End Date Miguel Ray MD [address] [facility] [address] [place] [address] PCP - [employer] 04/12/22 Miguel Ray MD [address] [facility] [address] [place] [address] PCP - General Internal Medicine 09/08/22 documented as of this encounter
--- OUTSIDE RECORDS SUMMARY | 2024-10-02 10:38 | XMS_ITS | Encounter Summary ---
Author Organization [facility] Address [address] [place] [address] Phone Care Team Providers Care Plastic Printer Name Role Phone Miguel Ray MD Primary Care Provider [phone] Encounter Details Date Type Department Care Team (Late st Contact Info) Description 11/28/2022 Scanned Document [facility] [address] [place] [address] Conversion, Onbase Social History Tobacco Use Types Packs/Day Years Used Date Smoking Tobacco: Never Assessed Comments Unknown Sex and Gender Information Value Date Recorded Sex Assigned at Not on file Legal Sex Female 10:44 PM EST Gender Identity Not on file Sexual Orientation Not on file documented as of this encounter Plan of Treatment Upcoming Encounters Date Type Department Care Team (Late st Contact Info) Description 10/17/2024 12:30 PM EDT Appointment [address] [place] [address] [phone] 10/30/2024 11:00 AM EDT Office Visit [address] [place] [address] Jaleesa Cai MD [address] [facility] [address] [place] [address] documented as of this encounter Procedures Procedure Name Priority Date/Time Associated Diagnosis Comments ECHOCARDIOGRAM 11/28/2022 documented in this encounter Results * ECHOCARDIOGRAM (11/28/2022) Narrative 11/28/2022 Ordered by an unspecified provider. us Onbase Conversion CV ECHO PROCEDURES Final Resul t documented in this encounter Visit Diagnoses Not on filedocumented in this encounter Care Teams Plastic Printer Relationship Specialty Start Date End Date Miguel Ray MD [address] [place] [address] PCP - General 11/04/22 documented as of this encounter
--- OUTSIDE RECORDS SUMMARY | 2024-10-02 10:38 | XMS_ITS | Clinical Summary ---
Author Organization [facility] Address [address] [place] [address] Care Team Providers Care Licensed Insurance Sales Agent Name Role Phone Cory BATEMAN MD, Miguel Primary Care Provider Allergies Active Allergy Reactions Criticality Noted Date Comments Penicillins Hives 01/06/2017 Medications metformin 1000 MG Tab take 1,000 mg by mouth 2 times daily. Active Turmeric (CURCUMIN 95 PO) take 1 tablet by mouth 2 times daily. Active therapeutic multivitamin-mi nerals Tab take 1 tablet by mouth daily. 30 tablet 7 Active Additional Information Patient not taking.Reported on 04/29/2017 acetaminophen 325 MG tablet take 2 tablets by mouth every 4 hours as needed for Mild Pain. 50 tablet 1 7 Active Additional Information Patient not taking.Reported on 01/27/2018 oxyCODONE 5 MG Tab tablet Take 1-2 tabs po q 4 hours PRN pain 50 tablet 7 Active Additional Information Patient not taking.Reported on 04/29/2017 docusate 100 MG Cap capsule take 1 capsule by mouth 2 times daily. 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 Family History Medical History Relation Name Comments Stroke Brother Stroke Father Heart Disease - Other Sister Relation Name Status Comments Brother Father Sister Social History Tobacco Use Types Packs/Day Years Used Date Smoking Tobacco: Never Smokeless Tobacco: Never Alcohol Use Standard Drinks/Week Comments No 0 (1 standard drink = 0.6 oz pur e alcohol) Comments Unknown Sex and Gender Information Value Date Recorded Sex Assigned at Not on file Legal Sex Female 3:48 PM EDT Gender Identity Female 12/18/2016 3:56 PM EDT Sexual Orientation Not on file Last Filed Vital Signs Vital Sign Reading Time Taken Comments Blood Pressure 145/66 01/28/2017 11:00 AM EDT Pulse 79 01/28/2017 11:00 AM EDT Temperature 36.2 C (97.1 F) 01/27/2018 3:52 PM EDT Respiratory Rate 18 01/28/2017 11:00 AM EDT Oxygen Saturation 100% 01/28/2017 11:00 AM EDT Inhaled Oxygen Concentration - - Weight 91.2 kg (201 lb) 01/27/2018 3:52 PM EDT Height 167.6 cm (5' 6 ) 01/27/2018 3:52 PM EDT Body Mass Index 32.44 01/27/2018 3:52 PM EDT Plan of Treatment Health Maintenance Due Date Last Done Comments DEXA SCAN DISCUSSION 1942 TETANUS 1942 TDAP (ADULT) 1961 CERVICAL CANCER SCREENING DISCUSSION 10/10/1963 MAMMOGRAM SCREENING DISCUSSION 1982 COLORECTAL CANCER SCREENING DISCUSSION 10/10/1987 PNEUMOCOCCAL VACCINE SERIES (1 of 1 - PCV) 1992 ZOSTER (SHINGLES) VACCINE (1 of 2) 1992 RSV VACCINE (1 - 1-dose 75+ series) 2017 COVID-19 VACCINE ( - 2023-2 5 season) 2023 INFLUENZA VACCINE (Season Ended) 2024 HEP B VACCINE Aged Out No longer elig ible based on patient's age to complete this topic Medical Devices Implanted Type Area Presales Engineer Device Identifier Shelf Expiration Date Model / Serial / Lot Palacos R + G Cement With Gentamicin Implanted:Qty: 1 on 01/25/2017 by Kirill Garcia MD at [facility] Right: Knee 03/11/2020-1113-140 -01 / / [id number] Description:Palacos r + g osvaldo ne cement with gentamicin Lot [id number] [place] no [id number] Exp 2020-03-11 Mcintire Stem Fluted Implanted:Qty: 1 on 01/25/2017 by Kirill Garcia MD at [facility] Right: Knee DEPUY 08/09/2025 [id number] / / [id number] Mcintire Femoral Sleeve Full Porous Implanted:Qty: 1 on 01/25/2017 by Kirill Garcia MD at [facility] Right: Knee DEPUY 03/11/2026 [id number] / / [id number] Posterior Augment Combo Implanted:Qty: 1 on 01/25/2017 by Kirill Garcia MD at [facility] Right: Knee DEPUY 12/10/2025 [id number] / / [id number] Sigma Femoral Adapter [place] Implanted:Qty: 1 on 01/25/2017 by Kirill Garcia MD at [facility] Right: Knee DEPUY 12/10/2026 [id number] / / [id number] Sigma Femoral Adapter Implanted:Qty: 1 on 01/25/2017 by Kirill Garcia MD at [facility] Right: Knee DEPUY 2026 [id number] / / [id number] M.B.T Revision Step Wedge Implanted:Qty: 1 on 01/25/2017 by Kirill Garcia MD at [facility] Right: Knee DEPUY 07/10/2022 [id number] / / [id number] Tibial Tray Rotating Platform M.B.T. Revision Implanted:Qty: 1 on 01/25/2017 by Kirill Garcia MD at [facility] Right: Knee DEPUY 04/11/2026 1294-35-130 / / [id number] Palacos R + G Bone Cement With Gentamicin Implanted:Qty: 1 on 01/25/2017 by Kirill Garcia MD at [facility] Right: Knee 06/09/2020-1113-140 -01 / / Description:Palacos r + g osvaldo ne cement with gentamicin Lot [id number] Cat no [id number] Exp 06-09-2020 Palacos R + G Bone Cement With Gentamicin Implanted:Qty: 1 on 01/25/2017 by Kirill Garcia MD at [facility] Right: Knee 03/11/2020 CAT 00-1113-140 -01 / / [id number] Description:Palacos r + g osvaldo ne cement with gentamicin Lot [id number] Exp 2020-03-11 Cat no [id number] Mcintire Stem Fluted Implanted:Qty: 1 on 01/25/2017 by Kirill Garcia MD at [facility] Right: Knee 2026 86-7414 / / [id number] Description:UNIVERSAL STEM F LUTED 75MM X 14MM REF [id number] LOT [id number] Sigma Tibial Insert Rotating Platform Tc3 Implanted:Qty: 1 on 01/25/2017 by Kirill Garcia MD at [facility] Right: Knee DEPUY 08/10/2019 [id number] / / [id number] Distal Augment Combo Implanted:Qty: 1 on 01/25/2017 by Kirill Garcia MD at [facility] Right: Knee DEPUY 09/09/2024 96-0892 / / [id number] Posterior Augment Combo Implanted:Qty: 1 on 01/25/2017 by Kirill Garcia MD at [facility] Right: Knee DEPUY 2024 [id number] / / [id number] Oval Dome Patella 3 Peg Implanted:Qty: 1 on 01/25/2017 by Kirill Garcia MD at [facility] Right: Knee DEPUY 95-0102 / / [id number] Sigma Femoral Tc3 Cemented Implanted:Qty: 1 on 01/25/2017 by Kirill Garcia MD at [facility] Right: Knee DEPUY 05/12/2025 / / [id number] Insurance MEDICARE A AND B Advance Directives For more information, please contact: [phone] (7:30 AM - 6PM [facility], Wednesday-Wednesday) * Full Code (Latest Code Status on File) Date Activated Date Inactivated Comments 01/25/2017 4:47 PM 01/28/2017 8:13 PM * Full Code Date Activated Date Inactivated Comments 01/25/2017 12:13 PM 01/25/2017 4:47 PM Care Teams Licensed Insurance Sales Agent Relationship Specialty Start Date End Date Miguel Ray II, MD [address] [place] [address] PCP - General Internal Medicine 01/06/17
--- OUTSIDE RECORDS SUMMARY | 2024-10-02 10:38 | XMS_ITS | Encounter Summary ---
Author Organization [facility] Address [address] [facility] [place] [address] Care Team Providers Care Deliverer Food Name Role Phone Miguel Ray MD Unavailable [phone] Miguel Ray MD Primary Care Provider [phone] Encounter Details Date Type Department Care Team (Late Contact Info) Description 11/11/2023 Abstract [facility] 112 [facility] 110 [place] [address] Miguel Ray MD 112 [facility] 110 [place] [address] Social History Tobacco Use Types Packs/Day Years [...] Office Visit [facility] 112 [facility] 110 [place] [address] Miguel Ray MD 112 [facility] 110 [place] [address] 11/09/2024 1:10 PM EDT Office Visit [facility] [address] [place] [address] Yaniv Jarrett, SAMIM FACFAS [address] [place] [address] documented as of this encounter Visit Diagnoses Not on filedocumented in this encounter Additional Health Concerns Assessment Noted Time PHQ-9 Depression Total Score: 1 09/30/19 24 10:00 AM EDT documented as of this encounter Care Teams Deliverer Food Relationship Specialty Start Date End Date Miguel Ray MD 112 [facility] 110 [place] [address] PCP - [employer] 04/12/22 Miguel Ray MD 112 [facility] [address] [place] [address] PCP - General Internal Medicine 09/08/22 documented as of this encounter
--- OUTSIDE RECORDS SUMMARY | 2024-10-02 10:38 | XMS_ITS | Encounter Summary ---
Author Organization [facility] Address [address] [facility] [place] [address] Care Team Providers Care Hot Stamp Operator Name Role Phone Miguel Ray MD Unavailable [phone] Miguel Ray MD Primary Care Provider [phone] Encounter Details Date Type Department Care Team (Late Contact Info) Description 05/19/2024 Abstract [facility] 112 [facility] 110 [place] [address] Miguel Ray MD 112 [facility] 110 [place] [address] Social History Tobacco Use Types Packs/Day Years [...] Office Visit [facility] 112 [facility] 110 [place] [address] Miguel Ray MD 112 [facility] 110 [place] [address] 11/09/2024 1:10 PM EDT Office Visit [facility] [address] [place] [address] Yaniv Jarrtet, SAMIM FACFAS [address] [place] [address] documented as of this encounter Visit Diagnoses Not on filedocumented in this encounter Additional Health Concerns Assessment Noted Time PHQ-9 Depression Total Score: 1 09/30/19 24 10:00 AM EDT documented as of this encounter Care Teams Hot Stamp Operator Relationship Specialty Start Date End Date Miguel Ray MD 112 [facility] 110 [place] [address] PCP - [employer] 04/12/22 Miguel Ray MD 112 [facility] 110 [place] [address] PCP - General Internal Medicine 09/08/22 documented as of this encounter
--- OUTSIDE RECORDS SUMMARY | 2024-10-02 10:38 | XMS_ITS | Encounter Summary ---
Author Organization [facility] Address [address] [facility] [place] [address] Care Team Providers Care Supervisor Volunteer Services Name Role Phone Miguel Ray MD Unavailable [phone] Miguel Ray MD Primary Care Provider [phone] Encounter Details Date Type Department Care Team (Late Contact Info) Description 05/22/2024 Abstract [facility] 112 [facility] 110 [place] [address] Miguel Ray MD 112 [facility] 110 [place] [address] Social History Tobacco Use Types Packs/Day Years [...] Office Visit [facility] 112 [facility] 110 [place] [address] Miguel Ray MD 112 [facility] 110 [place] [address] 11/09/2024 1:10 PM EDT Office Visit [facility] [address] [place] [address] Yaniv Jarrett, SAMIM FACFAS [address] [place] [address] documented as of this encounter Visit Diagnoses Not on filedocumented in this encounter Additional Health Concerns Assessment Noted Time PHQ-9 Depression Total Score: 1 09/30/19 24 10:00 AM EDT documented as of this encounter Care Teams Supervisor Volunteer Services Relationship Specialty Start Date End Date Miguel Ray MD 112 [place] 110 [place] [address] PCP - [employer] 04/12/22 Miguel Ray MD 112 [place] 110 [place] [address] PCP - General Internal Medicine 09/08/22 documented as of this encounter
--- OUTSIDE RECORDS SUMMARY | 2024-10-02 10:38 | XMS_ITS | Encounter Summary ---
Author Organization [facility] Address [address] [facility] [place] [address] Care Team Providers Care Supplier Quality Engineer Name Role Phone Miguel Ray MD Unavailable [phone] Miguel Ray MD Primary Care Provider [phone] Encounter Details Date Type Department Care Team (Late Contact Info) Description 09/29/2024 Abstract [facility] 112 [facility] 110 [place] [address] Miguel Ray MD 112 [facility] 110 [place] [address] Social History Tobacco Use Types Packs/Day Years Used Date Smoking Tobacco: Never Smokeless Tobacco: Never Alcohol Use Standard Drinks/Week Comments Never 0 (1 standard drink = 0.6 oz pur e alcohol) Caffeine intake: coffee PHQ-2 Answer Date Recorded Patient Health Questionnaire-2 Score 0 07/26/2024 Comments Unknown Sex and Gender Information Value Date Recorded Sex Assigned at Not on file Legal Sex Female 6:59 PM EDT Gender Identity Not on file Sexual Orientation Not on file documented as of this encounter Plan of Treatment Upcoming Encounters Date Type Department Care Team (Late Contact Info) Description 10/25/2024 9:30 AM EDT Office Visit [facility] 112 [facility] 110 [place] [address] Miguel Ray MD 112 [facility] 110 [place] [address] 11/09/2024 1:10 PM EDT Office Visit [facility] [address] [place] [address] Yaniv Jarrett, SAMIM FACFAS [address] [place] [address] documented as of this encounter Visit Diagnoses Not on filedocumented in this encounter Additional Health Concerns Assessment Noted Time PHQ-9 Depression Total Score: 1 09/30/19 24 10:00 AM EDT documented as of this encounter Care Teams Supplier Quality Engineer Relationship Specialty Start Date End Date Miguel Ray MD 112 [facility] 110 [place] [address] PCP - [employer] 04/12/22 Miguel Ray MD 112 [facility] 110 [place] [address] PCP - General Internal Medicine 09/08/22 documented as of this encounter
--- OUTSIDE RECORDS SUMMARY | 2024-10-02 10:38 | XMS_ITS | Encounter Summary ---
Author Organization [facility] Address [address] [facility] [place] [address] Care Team Providers Care Metal Molder Name Role Phone Miguel Ray MD Unavailable [phone] Miguel Ray MD Primary Care Provider [phone] Encounter Details Date Type Department Care Team ([facility] Contact Info) Description 10/15/2022 Abstract [facility] 112 [facility] 110 [place] [address] Miguel Ray MD 112 [facility] 110 [place] [address] Social History Tobacco Use Types Packs/Day Years [...] Upcoming Encounters Date Type Department Care Team ([facility] Contact Info) Description 10/25/2024 9:30 AM EDT Office Visit [facility] 112 [facility] 110 [place] [address] Miguel Ray MD 112 [facility] 110 [place], [place] [address] 11/09/2024 1:10 PM EDT Office Visit [facility] [address] [place] [address] Yaniv Jarrett, DPM FACFAS [address] [place] [address] Gay[place], [place] [address] documented as of this encounter Visit Diagnoses Not on filedocumented in this encounter Care Teams Metal Molder Relationship Specialty Start Date End Date Miguel Ray MD [address] [facility] 110 [place] [address] PCP - [employer] 04/12/22 Miguel Ray MD [address] [facility] 110 [place] [address] PCP - General Internal Medicine 09/08/22 documented as of this encounter
--- OUTSIDE RECORDS SUMMARY | 2024-10-02 10:38 | XMS_ITS | Encounter Summary ---
Author Organization [facility] Address [address] [facility] [place] [address] Care Team Providers Care Rn Infusion Name Role Phone Miguel Ray MD Unavailable [phone] Miguel Ray MD Primary Care Provider [phone] Encounter Details Date Type Department Care Team (Late Contact Info) Description 06/28/2024 Abstract [facility] 112 [facility] 110 [place] [address] Miguel Ray MD 112 [facility] 110 [place] [address] Social History Tobacco Use Types Packs/Day Years [...] Office Visit [facility] 112 [facility] 110 [place] [address] Miguel Ray MD 112 [facility] 110 [place] [address] 11/09/2024 1:10 PM EDT Office Visit [facility] [address] [place] [address] Yaniv Jarrett, SAMIM FACFAS [address] [place] [address] documented as of this encounter Visit Diagnoses Not on filedocumented in this encounter Additional Health Concerns Assessment Noted Time PHQ-9 Depression Total Score: 1 09/30/19 24 10:00 AM EDT documented as of this encounter Care Teams Rn Infusion Relationship Specialty Start Date End Date Miguel Ray MD 112 [facility] 110 [place] [address] PCP - [employer] 04/12/22 Miguel Ray MD 112 [facility] 110 [place] [address] PCP - General Internal Medicine 09/08/22 documented as of this encounter
--- OUTSIDE RECORDS SUMMARY | 2024-10-02 10:38 | XMS_ITS | Encounter Summary ---
Author Organization [facility] Address [address] [place] [address] Phone Care Team Providers Care Wrapper Sorter Name Role Phone Miguel Ray MD Primary Care Provider [phone] Encounter Details Date Type Department Care Team (Late st Contact Info) Description 10/19/2022 Orders Only [facility] [address] [place] [address] Conversion, Onbase Social History Tobacco Use Types [...] Description 10/17/2024 12:30 PM EDT Appointment [address] [place] [address] 10/30/2024 11:00 AM EDT Office Visit [address] [place] [address] Jaleesa Cai MD [address] [facility] 130 [place], [place] [address] Scheduled Orders Name Type Priority Associated Diagnoses Orde r Schedule OUTSIDE LAB SCAN Lab Ordered: 10/19/2022 documented as of this encounter Visit Diagnoses Not on filedocumented in this encounter Care Teams Wrapper Sorter Relationship Specialty Start Date End Date Miguel Ray MD [address] [place] [address] 110 [place] [address] PCP - General 11/04/22 documented as of this encounter
--- OUTSIDE RECORDS SUMMARY | 2024-10-02 10:38 | XMS_ITS | Encounter Summary ---
Author Organization [facility] Address [address] [facility] [place] [address] Care Team Providers Care Miller Head Wet Process Name Role Phone Miguel Ray MD Unavailable [phone] Miguel Ray MD Primary Care Provider [phone] Encounter Details Date Type Department Care Team (Late Contact Info) Description 10/07/2023 Abstract [facility] [address] [facility] 110 [place] [address] Miguel Ray MD 112 [facility] 110 [place] [address] Social History Tobacco Use Types Packs/Day Years [...] Office Visit [facility] 112 [facility] 110 [place] [address] Miguel Ray MD 112 [facility] 110 [place] [address] 11/09/2024 1:10 PM EDT Office Visit [facility] [address] [place] [address] Yaniv Jarrett, SAMIM FACFAS [address] [place] [address] documented as of this encounter Visit Diagnoses Not on filedocumented in this encounter Additional Health Concerns Assessment Noted Time PHQ-9 Depression Total Score: 1 09/30/19 24 10:00 AM EDT documented as of this encounter Care Teams Miller Head Wet Process Relationship Specialty Start Date End Date Miguel Ray MD 112 [facility] 110 [place] [address] PCP - [employer] 04/12/22 Miguel Ray MD 112 [facility] 110 [place] [address] PCP - General Internal Medicine 09/08/22 documented as of this encounter
--- OUTSIDE RECORDS SUMMARY | 2024-10-02 10:38 | XMS_ITS | Encounter Summary ---
Author Organization [facility] Address [address] [facility] [place] [address] Care Team Providers Care Ornamental Metal Erector Name Role Phone Miguel Ray MD Unavailable [phone] Miguel Ray MD Primary Care Provider [phone] Encounter Details Date Type Department Care Team ([facility] Contact Info) Description 11/04/2022 Abstract [facility] 112 [facility] 110 [place] [address] Miguel Ray MD 112 [facility] 110 [place], [place] [address] Social History Tobacco Use Types Packs/Day Years [...] Upcoming Encounters Date Type Department Care Team ([facility] Contact Info) Description 10/25/2024 9:30 AM EDT Office Visit [facility] 112 [facility] 110 [place] [address] Miguel Ray MD 112 [facility] 110 [place], [place] [address] 11/09/2024 1:10 PM EDT Office Visit [facility] [address] [place] [address] Yaniv Jarrett, DPM FACFAS [address] [place] [address] Gay[place], [place] [phone] documented as of this encounter Visit Diagnoses Not on filedocumented in this encounter Care Teams Ornamental Metal Erector Relationship Specialty Start Date End Date Miguel Ray MD [address] [facility] 110 [place] [address] PCP - [employer] 04/12/22 Miguel Ray MD [address] [facility] 110 [place] [address] PCP - General Internal Medicine 09/08/22 documented as of this encounter
--- OUTSIDE RECORDS SUMMARY | 2024-10-02 10:38 | XMS_ITS | Encounter Summary ---
Author Organization [facility] Address [address] [facility] [place] [address] Care Team Providers Care Electrical Line Worker Name Role Phone Miguel Ray MD Unavailable [phone] Miguel Ray MD Primary Care Provider [phone] Encounter Details Date Type Department Care Team ([facility] Contact Info) Description 11/20/2022 Abstract [facility] 112 [facility] 110 [place] [address] Miguel Ray MD 112 [facility] 110 [place] [address] Social History Tobacco Use Types Packs/Day Years [...] Upcoming Encounters Date Type Department Care Team ([facility] Contact Info) Description 10/25/2024 9:30 AM EDT Office Visit [facility] 112 [facility] 110 [place] [address] Miguel Ray MD 112 [facility] 110 [place], [place] [address] 11/09/2024 1:10 PM EDT Office Visit [facility] [address] [place] [address] Yaniv Jarrett, DPM FACFAS [address] [place] [address] Gayatri [employer], [place] [address] documented as of this encounter Visit Diagnoses Not on filedocumented in this encounter Care Teams Electrical Line Worker Relationship Specialty Start Date End Date Miguel Ray MD [address] [facility] 110 [place] [address] PCP - [employer] 04/12/22 Miguel Ray MD [address] [facility] 110 [place] [address] PCP - General Internal Medicine 09/08/22 documented as of this encounter
--- OUTSIDE RECORDS SUMMARY | 2024-10-02 10:38 | XMS_ITS | Encounter Summary ---
Author Organization [facility] Address [address] [facility] [place] [address] Care Team Providers Care Edge Beader Name Role Phone Miguel Ray MD Unavailable [phone] Miguel Ray MD Primary Care Provider [phone] Encounter Details Date Type Department Care Team ([facility] Contact Info) Description 11/10/2022 Abstract [facility] [address] [facility] [address] [place] [address] Miguel Ray MD 112 [facility] 110 [place] [address] Social History Tobacco Use Types Packs/Day Years [...] Upcoming Encounters Date Type Department Care Team ([facility] Contact Info) Description 10/25/2024 9:30 AM EDT Office Visit [facility] [address] [facility] [address] [place] [address] Miguel Ray MD 112 [facility] 110 [place], [place] [id number] 11/09/2024 1:10 PM EDT Office Visit [facility] [address] [place] [address] Yaniv Jarrett, DPM FACFAS [address] [place] [address] Gayatri [place], [place] [id number] documented as of this encounter Visit Diagnoses Not on filedocumented in this encounter Care Teams Edge Beader Relationship Specialty Start Date End Date Miguel Ray MD [address] [facility] 110 [place] [address] PCP - [employer] 04/12/22 Miguel Ray MD [address] [facility] 110 [place] [address] PCP - General Internal Medicine 09/08/22 documented as of this encounter
--- OUTSIDE RECORDS SUMMARY | 2024-10-02 10:38 | XMS_ITS | Encounter Summary ---
Author Organization [facility] Address [address] [place] [address] Care Team Providers Care Machine Ironer Name Role Phone Miguel Ray MD Unavailable [phone] Miguel Ray MD Primary Care Provider [phone] Encounter Details Date Type Department Care Team (Late Contact Info) Description 11/02/2022 Orders Only [facility] [address] [facility] 110 [place] [address] A, Unknown Practice [address] [place], [place] [id number] Social History Tobacco Use Types Packs/Day Years [...] Office Visit [facility] [address] [facility] 110 [place] [address] Miguel Ray MD [address] [facility] 110 [place], [place] [id number] 11/09/2024 1:10 PM EDT Office Visit [facility] [address] [facility] [place] [address] Yaniv Jarrett, DPTiffani FACFAS [address] [place] [address] documented as of this encounter Procedures Procedure Name Priority Date/Time Associated Diagnosis Comments MRI LUMBAR SPINE WO CONTRAST Routine 10/30/2022 1:10 PM EDT ECHOCARDIOGRAM WITH DOPPLER IF INDICATED Routine 10/28/2022 12:45 PM EDT documented in this encounter Results * MRI LUMBAR SPINE WO CONTRAST (10/30/2022 1:10 PM EDT) Anatomical Region Laterality Modality Radiographic Essie ging us Unknown Practice A IMG XR PROCEDURES Final Resul t * ECHOCARDIOGRAM WITH DOPPLER IF INDICATED (10/28/2022 12:45 PM EDT) Anatomical Region Laterality Modality Radiographic Essie ging us Unknown Practice A IMG XR PROCEDURES Final Resul t documented in this encounter Visit Diagnoses Not on filedocumented in this encounter Care Teams Machine Ironer Relationship Specialty Start Date End Date Miguel Ray MD [address] [facility] 110 [place] [address] PCP - [employer] 04/12/22 Miguel Ray MD [address] [facility] 110 [place] [address] PCP - General Internal Medicine 09/08/22 documented as of this encounter
--- OUTSIDE RECORDS SUMMARY | 2024-10-02 10:38 | XMS_ITS | Encounter Summary ---
Author Organization [facility] Address [address] [facility] [place] [address] Care Team Providers Care Diamond Driller Helper Name Role Phone Miguel Ray MD Unavailable [phone] Miguel Ray MD Primary Care Provider [phone] Encounter Details Date Type Department Care Team ([facility] Contact Info) Description 11/17/2022 Abstract [facility] [address] [facility] 110 [place] [address] Miguel Ray MD 112 [facility] 110 [place] [address] Social History Tobacco Use Types Packs/Day Years [...] Upcoming Encounters Date Type Department Care Team ([facility] Contact Info) Description 10/25/2024 9:30 AM EDT Office Visit [facility] [address] [facility] 110 [place] [address] Miguel Ray MD [address] [facility] 110 [place], [place] [address] 11/09/2024 1:10 PM EDT Office Visit [facility] [address] [place] [phone] Yaniv Jarrett, DPM FACFAS [address] [place] [address] Gayatri [place], [place] [phone] documented as of this encounter Visit Diagnoses Not on filedocumented in this encounter Care Teams Diamond Driller Helper Relationship Specialty Start Date End Date Miguel Ray MD [address] [facility] 110 [place] [address] PCP - [employer] 04/12/22 Miguel Ray MD [address] [facility] 110 [place] [address] PCP - General Internal Medicine 09/08/22 documented as of this encounter
--- OUTSIDE RECORDS SUMMARY | 2024-10-02 10:38 | XMS_ITS | Encounter Summary ---
Author Organization [facility] Address [address] [facility] [place] [address] Care Team Providers Care Emergency Medical Technician/Driver Name Role Phone Miguel Ray MD Unavailable [phone] Miguel Ray MD Primary Care Provider [phone] Encounter Details Date Type Department Care Team (Late Contact Info) Description 07/27/2024 Abstract [facility] 112 [facility] 110 [place] [address] Miguel Ray MD 112 [facility] 110 [place] [address] Social History Tobacco Use Types Packs/Day Years [...] Office Visit [facility] [address] [facility] 110 [place] [address] Miguel Ray MD 112 [facility] 110 [place] [address] 11/09/2024 1:10 PM EDT Office Visit [facility] [address] [place] [address] Yaniv Jarrett, SAMIM FACFAS [address] [place] [address] documented as of this encounter Visit Diagnoses Not on filedocumented in this encounter Additional Health Concerns Assessment Noted Time PHQ-9 Depression Total Score: 1 09/30/19 24 10:00 AM EDT documented as of this encounter Care Teams Emergency Medical Technician/Driver Relationship Specialty Start Date End Date Miguel Ray MD [address] [facility] 110 [place] [address] PCP - [employer] 04/12/22 Miguel Ray MD [address] [facility] 110 [place] [address] PCP - General Internal Medicine 09/08/22 documented as of this encounter
--- OUTSIDE RECORDS SUMMARY | 2024-10-02 10:38 | XMS_ITS | Encounter Summary ---
Author Organization [facility] Address [address] [facility] [place] [address] Care Team Providers Care Disassembler Name Role Phone Miguel Ray MD Unavailable [phone] Miguel Ray MD Primary Care Provider [phone] Encounter Details Date Type Department Care Team (Late Contact Info) Description 05/17/2024 Abstract [facility] [address] [facility] 110 [place] [address] Miguel Ray MD 112 [facility] 110 [place] [address] Social History Tobacco Use Types Packs/Day Years [...] Office Visit [facility] [address] [facility] 110 [place] [address] Miguel Ray MD 112 [facility] 110 [place] [address] 11/09/2024 1:10 PM EDT Office Visit [facility] [address] [place] [address] Yaniv aJrrett, SAMIM FACFAS [address] [place] [address] documented as of this encounter Visit Diagnoses Not on filedocumented in this encounter Additional Health Concerns Assessment Noted Time PHQ-9 Depression Total Score: 1 09/30/19 24 10:00 AM EDT documented as of this encounter Care Teams Disassembler Relationship Specialty Start Date End Date Miguel Ray MD [address] [place] [facility] 110 [place] [address] PCP - [employer] 04/12/22 Miguel Ray MD [address] [place] [facility] 110 [place] [address] PCP - General Internal Medicine 09/08/22 documented as of this encounter
--- OUTSIDE RECORDS SUMMARY | 2024-10-02 10:38 | XMS_ITS | Encounter Summary ---
Author Organization [facility] Address [address] [place] [address] Care Team Providers Care Member Of The Legislative [employer] Name Role Phone Miguel Ray MD Unavailable [phone] Miguel Ray MD Primary Care Provider [phone] Encounter Details Date Type Department Care Team (Late st Contact Info) Description 07/26/2024 Abstract [facility] [address] [facility] 110 [place] [phone] Miguel Ray MD [address] [facility] 110 [place] [address] Social History Tobacco Use Types Packs/Day Years [...] pleasure in doing things Not at all 07/26/2024 10:22 AM EDT Meggan Rosa L PN Feeling down, depressed, or hopeless Not at all 07/26/2024 10:22 AM EDT Meggan Rosa L PN Patient Health Questionnaire -2 Score 0 07/26/2024 10:22 AM EDT Meggan Rosa L PN documented as of this encounter Plan of Treatment Upcoming Encounters Date Type Department Care Team (Late st Contact Info) Description 10/25/2024 9:30 AM EDT Office Visit [facility] [address] [facility] 110 [place] [address] Miguel Ray MD [address] [facility] 110 [place] [address] 11/09/2024 1:10 PM EDT Office Visit [facility] [address] [place] [address] DolceYaniv R, DPM FACFAS [address] [facility] [place] [address] documented as of this encounter Visit Diagnoses Not on filedocumented in this encounter Additional Health Concerns Assessment Noted Time PHQ-9 Depression Total Score: 1 09/30/19 24 10:00 AM EDT documented as of this encounter Care Teams Member Of The Legislative [employer] Relationship Specialty Start Date End Date Miguel Ray MD [address] [facility] 110 [place] [address] PCP - [employer] 04/12/22 Miguel Ray MD [address] [facility] 110 [place] [address] PCP - General Internal Medicine 09/08/22 documented as of this encounter
--- OUTSIDE RECORDS SUMMARY | 2024-10-02 10:38 | XMS_ITS | Encounter Summary ---
Author Organization [facility] Address [address] [place] [address] Phone Care Team Providers Care Plug Sorter Name Role Phone Miguel Ray MD Primary Care Provider [phone] Encounter Details Date Type Department Care Team (Late st Contact Info) Description 12/22/2022 Scanned Document [facility] [address] [place] [address] Conversion, Onbase Social History Tobacco Use Types [...] Info) Description 10/17/2024 12:30 PM EDT Appointment [address] [place] [address] [phone] 10/30/2024 11:00 AM EDT Office Visit [address] [place] [address] Jaleesa Cai MD [address] [facility] 130 [place] [address] documented as of this encounter Procedures Procedure Name Priority Date/Time Associated Diagnosis Comments OUTSIDE IMAGING SCAN 12/22/2022 documented in this encounter Results * OUTSIDE IMAGING SCAN (12/22/2022) Anatomical Region Laterality Modality Other Narrative 12/22/2022 Ordered by an unspecified provider. us Onbase Conversion OUTSIDE SCAN Final Result documented in this encounter Visit Diagnoses Not on filedocumented in this encounter Care Teams Plug Sorter Relationship Specialty Start Date End Date Miguel Ray MD 112 [place] [address] PCP - General 11/04/22 documented as of this encounter
--- OUTSIDE RECORDS SUMMARY | 2024-10-02 10:38 | XMS_ITS | Encounter Summary ---
Author Organization [facility] Address [address] [facility] [place] [address] Care Team Providers Care Process Project Engineer Name Role Phone Miguel Ray MD Unavailable [phone] Miguel Ray MD Primary Care Provider [phone] Encounter Details Date Type Department Care Team (Late Contact Info) Description 05/19/2024 Abstract [facility] 112 [facility] 110 [place] [address] Miguel Ray MD 112 [facility] 110 [place] [address] Social History Tobacco Use Types Packs/Day Years [...] Office Visit [facility] [address] [facility] 110 [place] [address] Miguel Ray MD 112 [facility] 110 [place] [address] 11/09/2024 1:10 PM EDT Office Visit [facility] [address] [place] [address] Yaniv Jarrett, SAMIM FACFAS [address] [place] [address] documented as of this encounter Visit Diagnoses Not on filedocumented in this encounter Additional Health Concerns Assessment Noted Time PHQ-9 Depression Total Score: 1 09/30/19 24 10:00 AM EDT documented as of this encounter Care Teams Process Project Engineer Relationship Specialty Start Date End Date Miguel Ray MD [address] [place] [facility] 110 [place] [address] PCP - [employer] 04/12/22 Miguel Ray MD [address] [facility] 110 [place] [address] PCP - General Internal Medicine 09/08/22 documented as of this encounter
--- OUTSIDE RECORDS SUMMARY | 2024-10-02 10:38 | XMS_ITS | Clinical Summary ---
Author Organization [facility] Address [address] [place] [address] Care Team Providers Care Sample Color Maker Name Role Phone Miguel Ray MD Unavailable [phone] Miguel Ray MD Primary Care Provider [phone] Allergies Active Allergy Reactions Criticality Noted Date Comments Penicillin G Benzathine Hives 04/01/2021 Penicillins Hives,Itching,Rash,Unknown Low 01/25/20 13 Medications Magnesium Glycinate 665 MG capsule as directed Orally Active Accu-Chek Guide test strip 1 each by Other route in the morning. 06/29/19 23 Active atorvastatin (Lipitor) 40 MG tablet Take 40 mg by mouth at bedtime. 12/29/19 23 Active gabapentin (Neurontin) 300 MG capsuleIndications :Polyneuropathy associated with underlying disease (HCC) Take 1 capsule (300 mg) by mouth at bedtime 90 capsule 3 01/19/20 24 025 Active Alcohol Swabs (DropSafe Alcohol Prep) 70 % padsIndications:Ty pe 2 diabetes mellitus with peripheral angiopathy (HCC) USE DIRECTED EVERY DAY 100 each 3 03/08/20 24 Active Accu-Chek Softclix Lancets lancetsIndications :Type 2 diabetes mellitus with peripheral angiopathy (HCC) TEST BLOOD SUGAR EVERY DAY DIRECTED 100 each 3 03/08/20 24 Active calcium citrate (Calcitrate) 950 (200 Ca) MG tabletIndications: Osteopenia after menopause TAKE 1 TABLET BY MOUTH EVERY DAY 100 tablet 1 05/08/19 25 Active linaGLIPtin (Tradjenta) 5 MG tabletIndications: Type 2 diabetes mellitus with peripheral angiopathy (HCC) Take 1 tablet (5 mg) by mouth Daily 100 tablet 3 05/11/19 25 026 Active aspirin 81 MG EC tablet Take 2 tablets (162 mg) by mouth Daily 200 tablet 07/27/19 25 Active diclofenac sodium 3 % gelIndications:Neelam alberto osteoarthritis involving multiple joints Apply 0.5 g topically in the morning and 0.5 g before bedtime. 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 TAKE 1 TABLET BY MOUTH EVERY DAY 100 tablet 1 08/24/19 25 Active ammonium lactate (Lac-Hydrin) 12 % lotionIndications: Xerosis Cutis Apply 1 application topically if needed for dry skin Apply to feet twice daily 60 g 1 09/01/19 25 025 Active Problems Problem Noted Date Diagnosed Date Arteriosclerosis of both carotid arteries 2024 Encounter to discuss test results 11/10/2023 History of gastric bypass 08/05/2023 BMI 33.0-33.9,adult 07/07/2023 Bilateral carotid bruits 06/17/2023 Elevated blood pressure read ing without diagnosis of hypertension 06/17/2023 Never smoked tobacco 06/17/2023 Anxiety 10/03/2022 Difficulty sleeping 10/03/2022 LVH (left ventricular hypertrophy) 10/03/2022 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 10/03/2022 Osteoarthritis of lumbar spi ne without myelopathy or radiculopathy 10/03/2022 Other chronic pain 10/03/2022 Primary osteoarthritis involving multiple joints 10/03/2022 Proteinuria 10/03/2022 Sciatica 10/03/2022 Sinusitis 10/03/2022 Irritable bowel syndrome with diarrhea Cardiomegaly 10/05/2019 Nonrheumatic aortic valve stenosis 10/05/2019 At risk for falls 08/30/2019 Type 2 diabetes mellitus with peripheral angiopa thy 08/30/2019 Morbid (severe) obesity due to excess calories 0 08/30/2019 Onychomycosis due to dermatophyte 08/30/2019 Exudative age-related macula r degeneration of both eyes with active choroidal neovascularization 06/27/2019 Decreased estrogen level 08/10/2018 Fatty food intolerance 08/10/2018 History of total right knee replacement 03/01/20 17 GERD (gastroesophageal reflux disease) 7 S/P revision of total knee 01/25/2017 Long-term use of Plaquenil 07/22/2016 Hip pain, bilateral 07/22/2016 Chronic bilateral low back pain with bilateral s ciatica 07/22/2016 Erosive osteoarthritis of multiple sites 017 Edema 06/27/2015 Mixed hyperlipidemia 06/27/2015 Polyneuropathy associated with underlying diseas e 06/27/2015 Bilateral hand swelling 02/13/2015 Benign essential hypertension 01/28/2015 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 Osteoarthritis 01/28/2015 Personal history of (healed) other pathological fracture 10/26/2013 Vitamin D deficiency 01/25/2013 Family history of rheumatoid arthritis 3 Fatigue 08/02/2012 Hand pain 08/02/2012 Multiple joint pain 08/02/2012 Resolved Problems Problem Noted Date Diagnosed Date Resolved Date DM w/o complication type II 10/03/2022 07/07/2023 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 08/30/2019 10/18/2023 Diabetes mellitus 01/25/2017 07/07/2023 Obesity (BMI 30.0-34.9) 01/25/201706/11 Type 2 diabetes mellitus without complication 01/29/20 15 07/07/2023 Encounters Date Type Department Care Team Description 09/29/2024 Abstract [facility] [address] [place] [address] [place] [address] Miguel Ray MD 09/12/2024 Clinisync Result Encounter [facility] External Department Unsolicited Provider, Generic External Data 08/31/2024 1:00 PM EDT Office Visit [facility] [address] [place] [address] Yaniv Jarrett R, DPM FACFAS Onychomycosis (Primary Dx); Type II diabetes mellitus with neurological manifestations (HCC); Pain in right toe(s); Pain in left toe(s) 08/31/2024 Bamboo flowsheet [facility] [address] [address] Yaniv Jarrett, DPM FACFAS 08/24/2024 Clinisync Result Encounter [facility] External Department Unsolicited Provider, Generic External Data 08/23/2024 Refill [facility] [address] [facility] [address] [place] [address] Miguel Ray MD Osteopenia after menopause 08/02/2024 Refill [facility] [address] [facility] [address] [place] [address] Miguel Ray MD Type 2 diabetes mellitus with peripheral angiopathy (HCC) 07/27/2024 Abstract [facility] [address] [facility] [address] [place] [address] Miguel Ray MD 07/26/2024 10:30 AM EDT Office Visit [facility] [address] [facility] [address] [place] [address] Miguel Ray MD Primary osteoarthritis involving multiple joints (Primary Dx); Chronic bilateral low back pain with bilateral sciatica; Exudative age-related macular degeneration, bilateral, with active choroidal neovascularization (HCC); Morbid (severe) obesity due to excess calories ([facility]); Essential (primary) hypertension ; Body mass index (BMI) 36.0-36.9, adult 07/26/2024 Abstract [facility] [address] [facility] [address] [place] [address] Miguel Ray MD 07/26/2024 Telephone [facility] [address] [facility] [address] [place] [address] Miguel Ray MD PA DICLOFENAC GEL 07/26/2024 Bamboo flowsheet [facility] [address] [facility] [address] [place] [address] Miguel Ray MD 07/26/2024 Travel from Last 3 Months Immunizations Immunization Administration Dates Next Due Influenza, High-dose Seasona l, Quadrivalent, Preservative Free 01/19/2024,01/26/2022 Influenza, Seasonal, Quadrivalent, Adjuvanted Influenza, seasonal, intradermal, preservative f ree 06/21/2010 Pfizer Purple Cap SARS-CoV-2 Vaccination 021,07/11/2020 Pneumococcal Conjugate PCV 20 07/01/2022 Pneumococcal Polysaccharide PPSV23 07/13/2000 Zoster, Recombinant 03/15/2023,12/25/2022 Family History Medical History Relation Name Comments Arthritis Father Asthma Father Hypertension Mother htn Mother Relation Name Status Comments Father Mother Social History Tobacco Use Types Packs/Day Years Used Date Smoking Tobacco: Never Smokeless Tobacco: Never Tobacco Cessation:Counseling Given: Yes Alcohol Use Standard Drinks/Week Comments Never 0 [...] Sign Reading Time Taken Comments Blood Pressure 136/80 08/31/2024 1:05 PM EDT Pulse 77 08/31/2024 1:05 PM EDT Temperature 36.5 C (97.7 F) 08/05/2023 9:47 AM EDT Respiratory Rate 16 03/15/2024 2:30 PM EST Oxygen Saturation 98% 07/26/2024 10:22 AM EDT Inhaled Oxygen Concentration - - Weight 104 kg (230 lb) 08/31/2024 1:05 PM EDT Height 167.6 cm (5' 6 ) 08/31/2024 1:05 PM EDT Body Mass Index 37.12 08/31/2024 1:05 PM EDT Plan of Treatment Upcoming Encounters Date Type Department Care Team (Late st Contact Info) Description 10/25/2024 9:30 AM EDT Office Visit [facility] [address] [place] [address] Miguel Ray MD 112 [facility] [address] [place] [address] 11/09/2024 1:10 PM EDT Office Visit [facility] [address] [place] [address] Yaniv Jarrett, DPM FACFAS [address] [place] [address] Health Maintenance Due Date Last Done Comments Diabetes: Retinopathy Screening 10/24/2023 10/23/2022, 12/17/2021, 12/09/2021, Additional history exists Diabetes: Hemoglobin A1C 09/14/2024 025, 01/19/2024, 10/18/2023, Additional history exists Medicare Annual Wellness (AWV) 09/29/2024 0 09/30/2023, 10/12/2022, 10/08/2021 Diabetes: Urine Protein Screening 10/03/2024 10/04/2023, 01/26/2023, 10/08/2021, Additional history exists Pneumococcal Vaccine: 65+ Years Completed , 07/13/2000 Influenza Vaccine Completed 01/19/2024, , 01/26/2022, Additional history exists Procedures Procedure Name Priority Date/Time Associated Diagnosis Comments MR LUMBAR SPINE WO CON 09/12/2024 11:51 AM EDT XR LUMBAR SPINE 6V W BENDING 08/24/2024 10:24 AM EDT POCT GLYCATED HEMOGLOBIN, TOTAL Routine 06/14/2024 11:36 AM EST Type 2 diabetes mellitus with peripheral angiopathy (HCC) MICROALBUMIN / CREATININE URINE RATIO Routine 10/04/2023 10:15 AM EDT Type 2 diabetes mellitus with peripheral angiopathy (HCC) DIABETIC RETINOPATHY SCREENING - OU - BOTH EYES Routine 10/23/2022 from Last 3 Months or Most Recently Relevant to Health Maintenance Results * MR LUMBAR SPINE WO CON (09/12/2024 11:51 AM EDT) Anatomical Region Laterality Modality Other 09/12/2024 11:5 1 AM EDT Narrative 09/12/2024 11:54 AM EDT [address] [address] Magnetic Resonance Report Signed Patient: VICKY RUSSELL MR#: [id number] : 1940 Acct:[id number] Age/Sex: 83 / F ADM Date: 09/12/24 Loc: MRI Attending Dr: Esme Padilla NP Ordering Physician: Esme Padilla NP Date of Service: 09/12/24 Procedure(s): MR lumbar spine wo con Accession Number(s): [id number] cc: MIGUEL RAY ; Esme Padilla NP [place] [id number] Patient Name: VICKY RUSSELL MRN: [id number] date: 1940 Sex: F Assigned Patient Location: MRI Current Patient Location: MRI Accession/Order Number: [id number] Exam Date: 09/12/2024 11:46 Report Date: 09/12/2024 11:51 At the request of: ESME PADILLA NP Procedure: MR lumbar spine wo con MR lumbar spine wo con 09/12/2024 10:24 AM SIGNS AND SYMPTOMS: Chronic low back pain with radiculopathy radiating into left lower extremity PROTOCOL: Multiplanar multisequence MR images of the lumbar spine without IV contrast COMPARISON: 10/30/2022 FINDINGS: There is a dextro convex curvature of the lumbar spine similar to the prior exam. The bones are in anatomic alignment otherwise. There is preservation of vertebral body heights. There is Schmorl's information the endplates at T12, L1, and L4. There is moderate severe disc height loss at L2-L3, L3-L4, and L4-5. There is mild disc height loss throughout otherwise. There is Modic type I endplate edema at T12-L1, L1-L2, and L5-S1. The conus terminates at the L1-L2 intervertebral disc level. No epidural or paraspinous fluid collection is appreciated. At T12-L1: There is a broad-based disc bulge with endplate osteophyte formation contributing to mild right neural foraminal narrowing. No spinal canal narrowing. At L1-L2: There is a broad-based disc bulge with a right foraminal focal disc protrusion. There is accompanying facet hypertrophy. There is mild left and moderate right neural foraminal narrowing with mild spinal canal narrowing. This is similar to the prior study. At L2-L3: There is a broad-based disc bulge with facet hypertrophy and endplate osteophyte formation. There is moderate left neural foraminal narrowing with mild spinal canal stenosis similar to the prior exam. At L3-L4: There is a broad-based disc bulge with endplate osteophyte formation and facet hypertrophy contributing to mild to moderate bilateral neural foraminal narrowing. There is posterior decompression without significant spinal canal narrowing. This is similar to the prior exam. At L4-L5: There is a broad-based disc bulge with endplate osteophyte formation and facet hypertrophy. There is moderate right and mild left neural foraminal narrowing. There is evidence of prior posterior decompression without spinal canal stenosis. This is unchanged. At L5-S1: There is a broad-based disc bulge with endplate osteophyte formation and facet hypertrophy. There is mild left and severe right neural foraminal narrowing with mass effect on the exiting right L5 nerve roots. This is unchanged. There is minimal spinal canal narrowing. MR/MR lumbar spine wo con IMPRESSION: At L5-S1: There is a broad-based disc bulge with endplate osteophyte formation and facet hypertrophy. There is mild left and severe right neural foraminal narrowing with mass effect on the exiting right L5 nerve roots. This is unchanged. There is minimal spinal canal narrowing. Additional but lesser degrees of degenerative changes are redemonstrated similar to the prior exam as above. Impression dictated by: Nikita Dean M.D. 09/12/2024 11:51 AM Dictation Location: [place] [address] Electronically authenticated by: [id number] Y Date: 09/12/2024 11:51 Dictated By: Nikita Dean M.D. Signed By: 09/12/24 1154 DD/ 1151 TD/TT: Inspection Clerk: Procedure Note Radiology, Radiologist, MD - 09/12/2024 [place] [address] Magnetic Resonance Report Signed Patient: VICKY RUSSELL#: [id number] : 1940cct:[id number] Age/Sex: 83 / FADM Date: 09/12/24 Loc: MRI Attending Dr: Esme Padilla NP Ordering Physician: Esme Padilla NP Date of Service: 09/12/24 Procedure(s): MR lumbar spine wo con Accession Number(s): [id number] cc: MIGUEL RAY ; Esme Padilla NP [place] [id number] Patient Name: VICKY RUSSELL MRN: [id number] date: 1940 Sex: F Assigned Patient Location: MRI Current Patient Location: MRI Accession/Order Number: [id number] Exam Date: 09/12/2024 11:46 Report Date: 09/12/2024 11:51 At the request of: ESME PADILLA NP Procedure: MR lumbar spine wo con MR lumbar spine wo con 09/12/2024 10:24 AM SIGNS AND SYMPTOMS: Chronic low back pain with radiculopathy radiatinginto left lower extremity PROTOCOL: Multiplanar multisequence MR images of the lumbar spine withoutIV contrast COMPARISON: 10/30/2022 FINDINGS: There is a dextro convex curvature of the lumbar spine similarto the prior exam. The bones are in anatomic alignment otherwise. There is preservation of vertebral body heights. There is Schmorl's informationthe endplates at T12, L1, and L4. There is moderate severe disc height lossat L2-L3, L3-L4, and L4-5. There is mild disc height loss throughoutotherwise. There is Modic type I endplate edema at T12-L1, L1-L2, and L5-S1. Theconus terminates at the L1-L2 intervertebral disc level. No epidural orparaspinous fluid collection is appreciated. At T12-L1: There is a broad-based disc bulge with endplate osteophyte formation contributing to mild right neural foraminal narrowing. Nospinal canal narrowing. At L1-L2: There is a broad-based disc bulge with a right foraminal focaldisc protrusion. There is accompanying facet hypertrophy. There is mild leftand moderate right neural foraminal narrowing with mild spinal canalnarrowing. This is similar to the prior study. At L2-L3: There is a broad-based disc bulge with facet hypertrophy and endplate osteophyte formation. There is moderate left neural foraminal narrowing with mild spinal canal stenosis similar to the prior exam. At L3-L4: There is a broad-based disc bulge with endplate osteophyteformation and facet hypertrophy contributing to mild to moderate bilateral neural foraminal narrowing. There is posterior decompression without significant spinal canal narrowing. This is similar to the prior exam. At L4-L5: There is a broad-based disc bulge with endplate osteophyteformation and facet hypertrophy. There is moderate right and mild left neuralforaminal narrowing. There is evidence of prior posterior decompression withoutspinal canal stenosis. This is unchanged. At L5-S1: There is a broad-based disc bulge with endplate osteophyteformation and facet hypertrophy. There is mild left and severe right neuralforaminal narrowing with mass effect on the exiting right L5 nerve roots. This is unchanged. There is minimal spinal canal narrowing. MR/MR lumbar spine wo con IMPRESSION: At L5-S1: There is a broad-based disc bulge with endplate osteophyteformation and facet hypertrophy. There is mild left and severe right neuralforaminal narrowing with mass effect on the exiting right L5 nerve roots. This is unchanged. There is minimal spinal canal narrowing. Additional but lesser degrees of degenerative changes are redemonstrated similar to the prior exam as above. Impression dictated by: Nikita Dean M.D. 09/12/2024 11:51 AM Dictation Location: [place] [address] Electronically authenticated by: [id number] Y Date: 1:51 Dictated By: Nikita Dean M.D. Signed By:09/12/24 1154 DD/ 1151 TD/TT: Inspection Clerk: us Generic External Data Provider [facility] Final Result * XR LUMBAR SPINE 6V W BENDING (08/24/2024 10:24 AM EDT) Anatomical Region Laterality Modality Other 08/24/2024 10:2 4 AM EDT Narrative 08/24/2024 10:26 AM EDT [address] [address] XRay Report Signed Patient: VICKY RUSSELL MR#: [id number] : 1940 Acct:[id number] Age/Sex: 83 / F ADM Date: 08/24/24 Loc: LAB Attending Dr: Esme Padilla NP Ordering Physician: Esme Padilla NP Date of Service: 08/24/24 Procedure(s): XR lumbar spine 6V w bending Accession Number(s): [id number] cc: MIGUEL RAY ; Esme Padilla NP [address] [address] Patient Name: VICKY RUSSELL MRN: [id number] date: 1940 Sex: F Assigned Patient Location: LAB Current Patient Location: LAB Accession/Order Number: [id number] Exam Date: 08/24/2024 10:20 Report Date: 08/24/2024 10:24 At the request of: ESME PADILLA NP Procedure: XR lumbar spine 6V w bending XR lumbar spine 6V w bending 08/24/2024 9:04 AM SIGNS AND SYMPTOMS: Chronic low back pain with left lower extremity radiculopathy PROTOCOLS: Frontal, lateral, oblique, and flexion-extension views of the lumbar spine COMPARISON: 10/30/2022 FINDINGS: There is a dextro convex curvature of the lumbar spine. There is severe intervertebral disc height loss at L2-L3, L3-4, and L4-5 with to moderate disc height loss at L5-S1. There is accompanying anterior osteophyte formation throughout. There is facet hypertrophy throughout. Flexion and extension view show no pathologic movement. Vertebral body heights are maintained. Mild degenerative changes are noted in the sacroiliac joints. Atherosclerotic changes are noted in the abdominal aorta. There is evidence of prior cholecystectomy. XR/XR lumbar spine 6V w bending IMPRESSION: Significant multilevel degenerative changes redemonstrated similar to the prior MRI. There is a dextro convex curvature. No pathologic movement on flexion or extension. Impression dictated by: Nikita Dean M.D. 08/24/2024 10:24 AM Dictation Location: [facility] Electronically authenticated by: [id number] Y Date: 08/24/2024 10:24 Dictated By: Nikita Dean M.D. Signed By: 08/24/24 1026 DD/ 1024 TD/TT: Inspection Clerk: Procedure Note Radiology, Radiologist, - 08/24/2024 [place] [address] XRay Report Signed Patient: VICKY RUSSELL SMR#: [id number] : 1940cct:[id number] Age/Sex: 83 / FADM Date: 08/24/24 Loc: LAB Attending Dr: Esme Padilla NP Ordering Physician: Esme Padilla NP Date of Service: 08/24/24 Procedure(s): XR lumbar spine 6V w bending Accession Number(s): [id number] cc: MIGUEL RAY ; Esme Padilla NP [facility] [place] [address] Patient Name: VICKY RUSSELL MRN: [id number] date: 1940 Sex: F Assigned Patient Location: LAB Current Patient Location: LAB Accession/Order Number: [id number] Exam Date: 08/24/2024 10:20 Report Date: 08/24/2024 10:24 At the request of: ESME PADILLA NP Procedure: XR lumbar spine 6V w bending XR lumbar spine 6V w bending 08/24/2024 9:04 AM SIGNS AND SYMPTOMS: Chronic low back pain with left lower extremity radiculopathy PROTOCOLS: Frontal, lateral, oblique, and flexion-extension views of the lumbar spine COMPARISON: 10/30/2022 FINDINGS: There is a dextro convex curvature of the lumbar spine. There is severe intervertebral disc height loss at L2-L3, L3-4, and L4-5 with to moderatedisc height loss at L5-S1. There is accompanying anterior osteophyte formation throughout. There is facet hypertrophy throughout. Flexion and extension view show no pathologic movement. Vertebral body heights are maintained. Mild degenerative changes are noted in the sacroiliac joints. Atherosclerotic changes are noted in the abdominal aorta. There isevidence of prior cholecystectomy. XR/XR lumbar spine 6V w bending IMPRESSION: Significant multilevel degenerative changes redemonstrated similar to the prior MRI. There is a dextro convex curvature. No pathologic movement on flexion or extension. Impression dictated by: Nikita Dean M.D. 08/24/2024 10:24 AM Dictation Location: [place] [address] Electronically authenticated by: [id number] Y Date: 0:24 Dictated By: Nikita Dean M.D. Signed By:08/24/24 1026 DD/ 1024 TD/TT: Inspection Clerk: Generic External Data Provider [facility] Final Result * POCT Glycated hemoglobin, total (06/14/2024 11:36 AM EST) Hemoglobin A1C 6.2 Blood 06/14/2024 11:3 6 AM EST Miguel Ray MD POINT OF CARE TEST ENTER/EDIT ORDERABLES Final Result * Microalbumin / creatinine, urine ratio (10/04/2023 10:15 AM EDT) CREATININE, RANDOM URINE 56 20 - 275 mg/dL [facility] ALBUMIN, URINE <0.2 See Note: mg/dL [facility] Comment: Reference Range: Reference Range Not established ALBUMIN/CREATININE RATIO, RANDOM URINE NOTE <30 mg/g creat [facility] Comment: NOTE: The urine albumin value is less than 0.2 mg/dL therefore we are unable to calculate excretion and/or creatinine ratio. The ADA defines abnormalities in albumin excretion as follows: Albuminuria Category Result (mg/g creatinine) Normal to Mildly increased <30 Moderately increased 30-299 Severely increased > OR = 300 The ADA recommends that at least two of three specimens collected within a 3-6 month period be abnormal before considering a patient to be within a diagnostic category. Urine Urine specimen obtained by clean catch procedure / Unknown 10/04/2023 10:15 AM EDT 10/04/2023 10:15 AM EDT Narrative Resulting Agency Comment Performing Organization Information Site ID: [id number] Name: [facility] Address: [address] [place] [address] Director: Miky Ruby MD us Aisha Okeefe BUTCHER SUPERVISOR LAB URINE ORDERABLES Final Resul t [facility] * (ABNORMAL) Diabetic Retinopathy Screening - OU - Both Eyes (10/23/2022) RESULTS Retinopathy Anatomical Region Laterality Modality Head Other Other 10/23/2022 us Dorota NOVAK [facility] Final Result from Last 3 Months or Most Recently Relevant to Health Maintenance Insurance [employer] Care Teams Sample Color Maker Relationship Specialty Start Date End Date Miguel Ray MD [address] [facility] [address] [place] [address] PCP - [employer] 04/12/22 Miguel Ray MD [address] [facility] [address] [place] [address] PCP - General Internal Medicine 09/08/22
--- OUTSIDE RECORDS SUMMARY | 2024-10-02 10:39 | XMS_ITS | Encounter Summary ---
Author Organization [facility] Address [address] [facility] [place] [address] Care Team Providers Care Financial Quantitative Analyst Name Role Phone Miguel Ray MD Unavailable [phone] Miguel Ray MD Primary Care Provider [phone] Encounter Details Date Type Department Care Team (Late Contact Info) Description 01/25/2023 Abstract [facility] [address] [facility] 110 [place] [address] Dorota Boyle PA [address] [facility] 110 [place] [address] Social History Tobacco Use Types Packs/Day Years Used Date Smoking Tobacco: Never Smokeless Tobacco: Never Tobacco Cessation:Counseling Given: Not Answered Alcohol Use Standard Drinks/Week Comments Never 0 [...] Visit [facility] [address] [facility] 110 [place] [address] Miguel Ray MD [address] [facility] 110 [place] [address] 11/09/2024 1:10 PM EDT Office Visit [facility] [address] [place] [address] Yaniv Jarrett, SAMIM FACFAS [address] [facility] [place] [address] documented as of this encounter Visit Diagnoses Not on filedocumented in this encounter Care Teams Financial Quantitative Analyst Relationship Specialty Start Date End Date Miguel Ray MD [address] [facility] 110 [place] [address] PCP - [employer] 04/12/22 Miguel Ray MD [address] [facility] 110 [place] [address] PCP - General Internal Medicine 09/08/22 documented as of this encounter
--- OUTSIDE RECORDS SUMMARY | 2024-10-02 10:39 | XMS_ITS | Encounter Summary ---
Author Organization [facility] Address [address] [place] [address] Phone Care Team Providers Care Foot And Ankle Surgeon Name Role Phone Miguel Ray MD Primary Care Provider [phone] Encounter Details Date Type Department Care Team (Late Contact Info) Description 05/19/2024 Scanned Document [facility] [address] [place] [phone] Scanning, Generic Provider Social History Tobacco Use Types Packs/Day Years Used Date Smoking Tobacco: Never Alcohol Use Standard Drinks/Week Comments Yes 0 (1 standard drink = 0.6 oz pur e alcohol) rarely Comments Unknown Sex and Gender Information Value Date Recorded Sex Assigned at Not on file Legal Sex Female 10:44 PM EST Gender Identity Not on file Sexual Orientation Not on file COVID-19 Exposure Response Date Recorded In the last 10 days, have yo u been in contact with someone who was confirmed or suspected to have Coronavirus/COVID-19? No / Unsure 05/22/2024 1:35 PM EST documented as of this encounter Plan of Treatment Upcoming Encounters Date Type Department Care Team (Late Contact Info) Description 10/17/2024 12:30 PM EDT Appointment [address] [place] [address] 10/30/2024 11:00 AM EDT Office Visit [address] 250 [place] [address] Jaleesa aCi MD 917 [facility] 130 [place], [place] [address] documented as of this encounter Visit Diagnoses Not on filedocumented in this encounter Additional Health Concerns Assessment Noted Time A fall risk assessment has been complete d for the patient 11/08/2023 10:45 AM EDT documented as of this encounter Care Teams Foot And Ankle Surgeon Relationship Specialty Start Date End Date Miguel Ray MD 112 [facility] 110 [place] [address] PCP - General 11/04/22 documented as of this encounter
--- OUTSIDE RECORDS SUMMARY | 2024-10-02 10:39 | XMS_ITS | Encounter Summary ---
Author Organization [facility] Address [address] [facility] [place] [address] Care Team Providers Care Tele Marketing Executive Name Role Phone Miguel Ray MD Unavailable [phone] Miguel Ray MD Primary Care Provider [phone] Encounter Details Date Type Department Care Team ([facility] Contact Info) Description 01/20/2023 Abstract [facility] [address] [facility] 110 [place] [address] Miguel Ray MD 112 [facility] 110 [place] [address] Social History Tobacco Use Types Packs/Day Years [...] CI FM [address] [facility] 110 [place] [address] Miguel Ray MD 112 [facility] 110 [place], [place] [address] 11/09/2024 1:10 PM EDT Office Visit [facility] [address] [place] [address] Yaniv Jarrett, DPM FACFAS [address] [place] [address] Gayatri [place], [place] [phone] documented as of this encounter Visit Diagnoses Not on filedocumented in this encounter Care Teams Tele Marketing Executive Relationship Specialty Start Date End Date Miguel Ray MD [address] [facility] 110 [place] [address] PCP - [employer] 04/12/22 Miguel Ray MD [address] [facility] 110 [place] [address] PCP - General Internal Medicine 09/08/22 documented as of this encounter
--- OUTSIDE RECORDS SUMMARY | 2024-10-02 10:39 | XMS_ITS | Encounter Summary ---
Author Organization [facility] Address [address] [facility] [place] [address] Care Team Providers Care Senior Data Modeler Name Role Phone Miguel Ray MD Unavailable [phone] Miguel Ray MD Primary Care Provider [phone] Encounter Details Date Type Department Care Team (Late Contact Info) Description 11/20/2022 Orders Only [facility] [address] [facility] 110 [place] [address] Dorota Boyle PA [address] [facility] 110 [place] [address] Social History Tobacco Use Types Packs/Day Years [...] Office Visit [facility] [address] [facility] 110 [place] [address] Miguel Ray MD [address] [facility] 110 [place] [address] 11/09/2024 1:10 PM EDT Office Visit [facility] [address] [place] [address] Yaniv Jarrett, DPM FACFAS 368 [facility] [place] [address] documented as of this encounter Procedures Procedure Name Priority Date/Time Associated Diagnosis Comments ULTRASOUND : BREAST(S), UNILATERAL OR BILATERAL Routine 11/19/2022 6:48 AM EDT documented in this encounter Results * ULTRASOUND : BREAST(S), UNILATERAL OR BILATERAL (11/19/2022 6:48 AM EDT) Anatomical Region Laterality Modality Radiographic Essie ging us Dorota NOVAK IMG XR PROCEDURES Final Result documented in this encounter Visit Diagnoses Not on filedocumented in this encounter Care Teams Senior Data Modeler Relationship Specialty Start Date End Date Miguel Ray MD 112 [facility] 110 [place] [address] PCP - [employer] 04/12/22 Miguel Ray MD [address] [facility] 110 [place], [place] [address] PCP - General Internal Medicine 09/08/22 documented as of this encounter
--- OUTSIDE RECORDS SUMMARY | 2024-10-02 10:39 | XMS_ITS | Encounter Summary ---
Author Organization [facility] Address [address] [place] [address] Phone Care Team Providers Care Regional Clinical Director Name Role Phone Miguel Ray MD Primary Care Provider [phone] Encounter Details Date Type Department Care Team (Late Contact Info) Description 05/17/2024 Scanned Document [facility] [address] [place] [address] Scanning, Generic Provider Social History Tobacco Use [...] suspected to have Coronavirus/COVID-19? No / Unsure 04/24/2024 12:26 PM EST documented as of this encounter Plan of Treatment Upcoming Encounters Date Type Department Care Team (Late Contact Info) Description 10/17/2024 12:30 PM EDT Appointment [address] [place] [address] 10/30/2024 11:00 AM EDT Office Visit [address] 250 [place] [address] Jaleesa Cai MD 917 [facility] 130 [place], [place] [address] documented as of this encounter Visit Diagnoses Not on filedocumented in this encounter Additional Health Concerns Assessment Noted Time A fall risk assessment has been complete d for the patient 11/08/2023 10:45 AM EDT documented as of this encounter Care Teams Regional Clinical Director Relationship Specialty Start Date End Date Miguel Ray MD [address] [place] [facility] 110 [place] [address] PCP - General 11/04/22 documented as of this encounter
--- OUTSIDE RECORDS SUMMARY | 2024-10-02 10:39 | XMS_ITS | Clinical Summary ---
Author Organization [facility] Address [address] [place] [address] Phone Care Team Providers Care Epic Interface Analyst Name Role Phone Miguel Ray MD Primary Care Provider [phone] Allergies Active Allergy Reactions Criticality Noted Date Comments Penicillins Hives High 06/17/2023 Medications gabapentin (Neurontin) 300 mg capsule Take 1 capsule (300 mg) by mouth once daily at bedtime. Active glimepiride (Amaryl) 2 mg tablet Take 1 tablet (2 mg) by mouth once daily in the morning. Take before meals. Active linaGLIPtin (Tradjenta) 5 mg tablet Take 1 tablet (5 mg) by mouth once daily. Active lisinopril 2.5 mg tabletIndications:M itral valve stenosis and aortic valve stenosis,Bilateral carotid bruits Take 1 tablet (2.5 mg) by mouth once daily. 90 tablet 3 4 11/08/19 25 Active atorvastatin (Lipitor) 40 mg tabletIndications:M ixed hyperlipidemia Take 1 tablet (40 mg) by mouth once daily. 90 tablet 3 4 11/08/19 25 Active aspirin 81 mg EC tablet Take 1 tablet (81 mg) by mouth once daily. Active clopidogrel (Plavix) 75 mg tablet Take 1 tablet (75 mg) by mouth once daily. Active Active Problems Problem Noted Date Diagnosed Date Encounter for pre-operative cardiovascular clear ance 05/22/2024 Right-sided extracranial carotid artery stenosis 05/22/2024 Nonrheumatic aortic valve stenosis 11/10/2023 Encounter to discuss test results 11/10/2023 Primary hypertension 11/08/2023 Diabetes mellitus type II, non insulin dependent (Multi) 11/08/2023 Aortic valve stenosis 06/17/2023 Bilateral carotid bruits 06/17/2023 BMI 37.0-37.9, adult 06/17/2023 Elevated blood pressure read ing without diagnosis of hypertension 06/17/2023 Fatigue 06/17/2023 GERD (gastroesophageal reflux disease) Hyperlipidemia 06/17/2023 Neuropathy 06/17/2023 Never smoked tobacco 06/17/2023 At moderate risk for fall 06/17/2023 Immunizations Immunization Administration Dates Next Due Flu vaccine, quadrivalent, h igh-dose, preservative free, age 65y+ (FLUZONE) 01/19/2024,01/26/2022 Influenza, Seasonal, Quadrivalent, Adjuvanted Pneumococcal conjugate vaccine, 20-valent (PREVN AR 20) 07/01/2022 Zoster vaccine, recombinant, adult (SHINGRIX) ,12/25/2022 Family History Medical History Relation Name Comments Diabetes Brother Heart attack Brother COPD Father Hypertension Mother Valvular heart disease Sister Relation Name Status Comments Brother Father Mother Sister Social History Tobacco Use Types Packs/Day Years Used Date Smoking Tobacco: Never Tobacco Cessation:Counseling Given: Not Answered Alcohol Use Standard Drinks/Week Comments Yes 0 (1 standard drink = 0.6 oz pur e alcohol) rarely Comments Unknown Sex and Gender Information Value Date Recorded Sex Assigned at Not on file Legal Sex Female 10:44 PM EST Gender Identity Not on file Sexual Orientation Not on file Last Filed Vital Signs Vital Sign Reading Time Taken Comments Blood Pressure 128/62 05/22/2024 1:47 PM EST Pulse 79 05/22/2024 1:47 PM EST Temperature - - Respiratory Rate - - Oxygen Saturation - - Inhaled Oxygen Concentration - - Weight 102 kg (225 lb) 05/22/2024 1:47 PM EST Height 165.1 cm (5' 5 ) 05/22/2024 1:47 PM EST Body Mass Index 37.44 05/22/2024 1:47 PM EST Plan of Treatment Upcoming Encounters Date Type Department Care Team (Late st Contact Info) Description 10/17/2024 12:30 PM EDT Appointment [facility] [address] [place] [address] 10/30/2024 11:00 AM EDT Office Visit [facility] 703 [facility] 250 [place] [address] Jaleesa Cai MD [address] [facility] 130 [place] [address] Health Maintenance Due Date Last Done Comments Diabetes: Hemoglobin A1C 1940 Medicare Annual Wellness Visit (AWV) 1940 Diabetes: Retinopathy Screening 1952 DTaP/Tdap/Td Vaccines (1 - Tdap) 1964 RSV High Risk: (Elderly (60+) or Population) (1 - 1-dose 75+ series) 2017 COVID-19 Vaccine ( - 2023- season) 2023 Diabetes: Urine Protein Screening 10/03/2024 10/04/2023 Lipid Panel 10/03/2024 10/04/2023 Bone Density Scan 10/24/2025 10/25/2023, , 10/20/2021 Pneumococcal Vaccine Completed 07/01/2022, 07/14/19 Zoster Vaccines Completed 03/15/2023, 12/25/2022 Influenza Vaccine Completed 01/19/2024, , 01/26/2022, Additional history exists HIB Vaccines Aged Out No longer eligi ble based on patient's age to complete this topic HPV Vaccines Aged Out No longer eligi ble based on patient's age to complete this topic Hepatitis A Vaccines Aged Out No long er eligible based on patient's age to complete this topic Hepatitis B Vaccines Aged Out No long er eligible based on patient's age to complete this topic IPV Vaccines Aged Out No longer eligi ble based on patient's age to complete this topic Meningococcal Vaccine Aged Out No ramu adrián eligible based on patient's age to complete this topic Rotavirus Vaccines Aged Out No longer eligible based on patient's age to complete this topic Insurance [employer] Care Teams Epic Interface Analyst Relationship Specialty Start Date End Date Miguel Ray MD [address] [facility] 110 [place] [address] PCP - General 11/04/22
[2024-10-02 10:57] VITALS: BP 121/65; PULSE 74; TEMP 36.2; O2SAT 99
[2024-10-02 11:00] LABS: Glucometer 113 mg/dL (74-106)
[2024-10-02 11:33] VITALS: BP 178/88; PULSE 89; PULSE 90; O2SAT 97; O2SAT 98
[2024-10-02 11:34] VITALS: BP 198/102
[2024-10-02] MEDS: 0.9 % SODIUM CHLORIDE 10 ML SYRINGE - SALINE FLUSH INJ (11:34)
[2024-10-02] MEDS: IOHEXOL 240 MG/ML - 10 ML VIAL INJ (11:35)
[2024-10-02] MEDS: BUPIVACAINE HCL 0.25% PF 25 MG/10 ML VIAL INJ (11:35)
[2024-10-02] MEDS: LIDOCAINE HCL 2% 400 MG/20 ML MDV 3 ML INJ (11:35)
[2024-10-02] MEDS: METHYLPREDNISOLONE ACETATE 80 MG/ML VIAL INJ (11:36)
--- NOTE | 2024-10-02 11:38 | P.ON_ITS ---
Date of procedure: 10/02/24 Pre-op diagnosis: Pain due to lumbar stenosis with neurogenic claudication Post-op diagnosis: same as pre-op Procedure: Procedure: Left L4-5, L5-S1 transforaminal epidural steroid injection Medications: Bupivacaine 0.25% 2cc, lidocaine 2% 1cc, depomedrol 80mg The patient was seen and examined in the preoperative holding area.? Informed consent was obtained and placed on the chart.? Patient was brought to the medical procedure unit and placed in the prone position where a timeout was completed verifying the correct patient, procedure site, position, and planned special equipment using sterile aseptic technique.? Under direct fluoroscopic visualization a 25-gauge Quincke tipped spinal needle was advanced to the designated neural foramen where contrast dye was injected to show adequate spread.? The needle was inserted at level left L4-5. There was no evidence of vascular or adverse uptake.? Epidural spread was appreciated.? The above- mentioned injectate was then placed in a 1.5 mL aliquot preceded by negative aspiration.? The needle was removed. The needle was inserted and the procedure repeated at level left L5-S1.? The surgery site was covered.? Patient was taken to the postprocedural recovery area and monitored for an appropriate length of time before found suitable for discharge in the accompaniment of a responsible adult. Anesthesia: Local Surgeon: Michelle Baldwin Pathology: none sent Condition: stable Disposition: no change
== END 2024-10-02 11:44 | disposition home or self-care (01) ==
LOC: SURGOUT 10:35
PROVIDERS: PCP Internal Medicine; Visit Provider Anesthesiology
DX: M54.50 Low back pain, unspecified (principal); M48.062 Spinal stenosis, lumbar region with neurogenic claudication; E11.8 Type 2 diabetes mellitus with unspecified complications
CPT/HCPCS: 36415; 64483; 64484; 82948; J0665; J1010; Q9966

== ENCOUNTER 2024-10-12 08:29 | Outpatient (OUT) | payer MEDICARE, SELFPAY ==
--- OUTSIDE RECORDS SUMMARY | 2024-10-12 08:32 | XMS_ITS | Encounter Summary ---
Author Organization [facility] Address [address] [place] [address] Phone Care Team Providers Care Electronic Musical Instrument Repairer Name Role Phone Miguel Ray MD Primary Care Provider Encounter Details Date Type Department Care Team (Late Contact Info) Description 05/19/2024 Scanned Document [facility] [address] [place] [phone] Scanning, Generic Provider Social History Tobacco Use [...] Info) Description 10/17/2024 12:30 PM EDT Appointment [address] [place] [address] 10/30/2024 11:00 AM EDT Office Visit [address] 250 [place] [address] Jaleesa aCi MD 917 [facility] 130 [place], [place] [phone] documented as of this encounter Visit Diagnoses Not on filedocumented in this encounter Additional Health Concerns Assessment Noted Time A fall risk assessment has been complete d for the patient 11/08/2023 10:45 AM EDT documented as of this encounter Care Teams Electronic Musical Instrument Repairer Relationship Specialty Start Date End Date Miguel Ray MD 112 [facility] 110 [place] [address] PCP - General 11/04/22 documented as of this encounter
--- OUTSIDE RECORDS SUMMARY | 2024-10-12 08:32 | XMS_ITS | Encounter Summary ---
Author Organization [facility] Address [address] [place] [address] Phone Care Team Providers Care Roll Reclaimer Name Role Phone Miguel Ray MD Primary Care Provider [phone] Reason for Visit * Reason Onset Date Comments Error (VOID this visit) 10/11/2024 Encounter Details Date Type Department Care Team (Late st Contact Info) Description 10/11/[address] [address] Emilia Martinez RN Error (VOID this visit) Social History Tobacco Use Types Packs/Day Years [...] Info) Description 10/17/2024 12:30 PM EDT Appointment [address] [place] [address] 10/30/2024 11:00 AM EDT Office Visit [address] [address] Jaleesa Cai MD 917 [facility] 130 [place] [address] documented as of this encounter Visit Diagnoses Not on filedocumented in this encounter Additional Health Concerns Assessment Noted Time A fall risk assessment has been complete d for the patient 05/22/2024 1:46 PM EST documented as of this encounter Care Teams Roll Reclaimer Relationship Specialty Start Date End Date Miguel Ray MD 112 [facility] 110 [place] [address] PCP - General 11/04/22 documented as of this encounter
--- OUTSIDE RECORDS SUMMARY | 2024-10-12 08:32 | XMS_ITS | Encounter Summary ---
Author Organization [facility] Address [address] [facility] [place] [address] Care Team Providers Care Rn Clinician Name Role Phone Miguel Ray MD Unavailable [phone] Miguel Ray MD Primary Care Provider [phone] Encounter Details Date Type Department Care Team (Late Contact Info) Description 07/27/2024 Abstract [facility] 112 [facility] 110 [place] [address] Miguel Ray MD 112 [facility] 110 [place] [address] Social History Tobacco Use Types Packs/Day Years [...] [facility] 110 [place] [address] Miguel Ray MD 112 [facility] 110 [place] [address] 11/09/2024 1:10 PM EDT Office Visit [facility] [address] [place] [address] Yaniv Jarrett, SAMIM FACFAS [address] [place] [address] documented as of this encounter Visit Diagnoses Not on filedocumented in this encounter Additional Health Concerns Assessment Noted Time PHQ-9 Depression Total Score: 1 09/30/19 24 10:00 AM EDT documented as of this encounter Care Teams Rn Clinician Relationship Specialty Start Date End Date Miguel Ray MD [address] [place] [facility] 110 [place] [address] PCP - [employer] 04/12/22 Miguel Ray MD [address] [place] [facility] 110 [place] [address] PCP - General Internal Medicine 09/08/22 documented as of this encounter
--- OUTSIDE RECORDS SUMMARY | 2024-10-12 08:32 | XMS_ITS | Encounter Summary ---
Author Organization [facility] Address [address] [facility] [place] [address] Care Team Providers Care Spinning Frame Tender Name Role Phone Miguel Ray MD Unavailable [phone] Miguel Ray MD Primary Care Provider [phone] Encounter Details Date Type Department Care Team (Late Contact Info) Description 01/25/2024 Abstract [facility] 112 [facility] 110 [place] [address] Miguel Ray MD 112 [facility] 110 [place] [address] Social History Tobacco Use Types Packs/Day Years [...] Office Visit [facility] [address] [facility] 110 [place] [address] Miguel Ray MD 112 [facility] 110 [place] [address] 11/09/2024 1:10 PM EDT Office Visit [facility] [address] [place] [address] Yaniv Jarrett, SAMIM FACFAS [address] [place] [address] documented as of this encounter Visit Diagnoses Not on filedocumented in this encounter Additional Health Concerns Assessment Noted Time PHQ-9 Depression Total Score: 1 09/30/19 24 10:00 AM EDT documented as of this encounter Care Teams Spinning Frame Tender Relationship Specialty Start Date End Date Miguel Ray MD 112 [facility] 110 [place] [address] PCP - [employer] 04/12/22 Miguel Ray MD 112 [facility] 110 [place] [address] PCP - General Internal Medicine 09/08/22 documented as of this encounter
--- OUTSIDE RECORDS SUMMARY | 2024-10-12 08:32 | XMS_ITS | Encounter Summary ---
Author Organization [facility] Address [address] [facility] [place] [address] Care Team Providers Care Operating Room Assistant Name Role Phone Miguel Ray MD Unavailable [phone] Miguel Ray MD Primary Care Provider [phone] Encounter Details Date Type Department Care Team ([facility] Contact Info) Description 10/26/2022 Abstract [facility] [address] [facility] 110 [place] [address] Miguel Ray MD 112 [facility] 110 [place] [address] Social History Tobacco Use Types Packs/Day Years [...] Office Visit [facility] [address] [facility] 110 [place] [address] Miguel Ray MD 112 [facility] 110 [place], [place] [address] 11/09/2024 1:10 PM EDT Office Visit [facility] [address] [place] [address] Yaniv Jarrett, DPM FACFAS [address] [place] [address] Gayatri [place], [place] [address] documented as of this encounter Visit Diagnoses Not on filedocumented in this encounter Care Teams Operating Room Assistant Relationship Specialty Start Date End Date Miguel Ray MD [address] [facility] 110 [place] [address] PCP - [employer] 04/12/22 Miguel Ray MD [address] [facility] 110 [place] [address] PCP - General Internal Medicine 09/08/22 documented as of this encounter
--- OUTSIDE RECORDS SUMMARY | 2024-10-12 08:32 | XMS_ITS | Encounter Summary ---
Author Organization [facility] Address [address] [place] [address] Phone Care Team Providers Care Sales Office Coordinator Name Role Phone Miguel Ray MD Primary Care Provider Encounter Details Date Type Department Care Team (Late st Contact Info) Description 10/19/2022 Orders Only [facility] [address] [place] [address] Conversion, Onbase Social History Tobacco Use Types [...] Info) Description 10/17/2024 12:30 PM EDT Appointment [address] [place] [address] 10/30/2024 11:00 AM EDT Office Visit [address] 250 [place] [address] Jaleesa Cai MD 917 [address] [facility] 130 [place], [place] [address] Scheduled Orders Name Type Priority Associated Diagnoses Orde r Schedule OUTSIDE LAB SCAN Lab Ordered: 10/19/2022 documented as of this encounter Visit Diagnoses Not on filedocumented in this encounter Care Teams Sales Office Coordinator Relationship Specialty Start Date End Date Miguel Ray MD [address] [place] [address] 110 [place] [address] PCP - General 11/04/22 documented as of this encounter
--- OUTSIDE RECORDS SUMMARY | 2024-10-12 08:32 | XMS_ITS | Encounter Summary ---
Author Organization [facility] Address [address] [facility] [place] [address] Care Team Providers Care Equipment Engineering Technician Name Role Phone Miguel Ray MD Unavailable [phone] Miguel Ray MD Primary Care Provider [phone] Encounter Details Date Type Department Care Team (Late Contact Info) Description 10/07/2023 Abstract [facility] 112 [facility] 110 [place] [address] Miguel Ray MD [address] [facility] 110 [place] [address] Social History Tobacco Use Types Packs/Day Years [...] Office Visit [facility] 112 [facility] 110 [place] [address] Miguel Ray MD 112 [facility] 110 [place] [address] 11/09/2024 1:10 PM EDT Office Visit [facility] [address] [place] [address] Yaniv Jarrett, SAMIM FACFAS [address] [place] [address] documented as of this encounter Visit Diagnoses Not on filedocumented in this encounter Additional Health Concerns Assessment Noted Time PHQ-9 Depression Total Score: 1 09/30/19 24 10:00 AM EDT documented as of this encounter Care Teams Equipment Engineering Technician Relationship Specialty Start Date End Date Miguel Ray MD [address] [facility] 110 [place] [address] PCP - [employer] 04/12/22 Miguel Ray MD [address] [facility] 110 [place] [address] PCP - General Internal Medicine 09/08/22 documented as of this encounter
--- OUTSIDE RECORDS SUMMARY | 2024-10-12 08:32 | XMS_ITS | Encounter Summary ---
Author Organization [facility] Address [address] [place] [address] Phone Care Team Providers Care Fitting Supervisor Name Role Phone Miguel Ray MD Primary Care Provider Encounter Details Date Type Department Care Team (Late st Contact Info) Description 10/11/[address] [address] Emilia Martinez RN Social History Tobacco Use Types Packs/Day Years [...] on file documented as of this encounter Miscellaneous Notes * Telephone Encounter - Emilia Martinez RN - 10/11/2024 11:19 AM EDT 10-17-2024 Carotid Duplex cancelled. Patient states she had a carotid duplex with her vascular surgeon Dr Mcgill last week. Will retrieve the results for Dr Cai to review at her pending office visit. 7-21 o/v with GM documented in this encounter Plan of Treatment Upcoming Encounters Date Type Department Care Team (Late st Contact Info) Description 10/17/2024 12:30 PM EDT Appointment [address] [place] [address] 10/30/2024 11:00 AM EDT Office Visit [facility] [address] [facility] 250 [place] [address] Jaleesa Cai MD [address] [facility] 130 [place], [place] [address] documented as of this encounter Visit Diagnoses Not on filedocumented in this encounter Additional Health Concerns Assessment Noted Time A fall risk assessment has been complete d for the patient 05/22/2024 1:46 PM EST documented as of this encounter Care Teams Fitting Supervisor Relationship Specialty Start Date End Date Miguel Ray MD 112 [facility] 110 [place] [address] PCP - General 11/04/22 documented as of this encounter
--- OUTSIDE RECORDS SUMMARY | 2024-10-12 08:32 | XMS_ITS | Encounter Summary ---
Author Organization [facility] Address [address] [facility] [place] [address] Care Team Providers Care Dat Instructor Name Role Phone Miguel aRy MD Unavailable [phone] Miguel Ray MD Primary Care Provider [phone] Encounter Details Date Type Department Care Team (Late Contact Info) Description 07/08/2023 Abstract [facility] 112 [facility] 110 [place] [address] Miguel Ray MD 112 [facility] 110 [place] [address] Social History Tobacco Use Types Packs/Day Years [...] Office Visit [facility] 112 [facility] 110 [place] [address] Miguel Ray MD 112 [facility] 110 [place] [address] 11/09/2024 1:10 PM EDT Office Visit [facility] [address] [place] [address] Yaniv Jarrett, DPM FACFAS [address] [facility] [place] [address] documented as of this encounter Visit Diagnoses Not on filedocumented in this encounter Care Teams Dat Instructor Relationship Specialty Start Date End Date Miguel Ray MD [address] [facility] 110 [place] [address] PCP - [employer] 04/12/22 Miguel Ray MD [address] [facility] 110 [place] [address] PCP - General Internal Medicine 09/08/22 documented as of this encounter
--- OUTSIDE RECORDS SUMMARY | 2024-10-12 08:32 | XMS_ITS | Encounter Summary ---
Author Organization [facility] Address [address] [facility] [place] [address] Care Team Providers Care Traffic Chief Name Role Phone Miguel Ray MD Unavailable [phone] Miguel Ray MD Primary Care Provider [phone] Encounter Details Date Type Department Care Team (Late Contact Info) Description 06/28/2024 Abstract [facility] [address] [facility] 110 [place] [address] Miguel Ray MD 112 [facility] 110 [place] [address] Social History Tobacco Use Types Packs/Day Years [...] Office Visit [facility] 112 [facility] 110 [place] [address] Miguel Ray MD 112 [facility] 110 [place] [address] 11/09/2024 1:10 PM EDT Office Visit [facility] [address] [place] [address] Yaniv Jarrett, SAMIM FACFAS [address] [place] [address] documented as of this encounter Visit Diagnoses Not on filedocumented in this encounter Additional Health Concerns Assessment Noted Time PHQ-9 Depression Total Score: 1 09/30/19 24 10:00 AM EDT documented as of this encounter Care Teams Traffic Chief Relationship Specialty Start Date End Date Miguel Ray MD 112 [facility] 110 [place] [address] PCP - [employer] 04/12/22 Miguel Ray MD [address] [facility] 110 [place] [address] PCP - General Internal Medicine 09/08/22 documented as of this encounter
--- OUTSIDE RECORDS SUMMARY | 2024-10-12 08:32 | XMS_ITS | Clinical Summary ---
Author Organization [employer] Address [address] [place] [address] Care Team Providers Care Mental Health Program Manager Name Role Phone Cory BATEMAN MD, Miguel [...] this topic Medical Devices Implanted Type Area Buggy Man Device Identifier Shelf Expiration Date Model / Serial / Lot Palacos R + G Cement With Gentamicin Implanted:Qty: 1 on 01/25/2017 by Kirill Garcia MD at [facility] Right: Knee 03/11/2020-1113-140 -01 / / [id number] Description:Palacos r + g osvaldo ne cement with gentamicin Lot [id number] CA no [id number] Exp 2020-03-11 Alston Stem Fluted Implanted:Qty: 1 on 01/25/2017 by Kirill Gracia MD at [facility] Right: Knee DEPUY 08/09/2025 [id number] / / [id number] Alston Femoral Sleeve Full Porous Implanted:Qty: 1 on 01/25/2017 by Kirill Garcia MD at [facility] Right: Knee DEPUY 03/11/2026 [id number] / / [id number] Posterior Augment Combo Implanted:Qty: 1 on 01/25/2017 by Kirill Garcia MD at [facility] Right: Knee DEPUY 12/10/2025 [id number] / / [id number] Sigma Femoral Adapter [place] Implanted:Qty: 1 on 01/25/2017 by Kirill Garcia MD at [facility] Right: Knee DEPUY 12/10/2026 [id number] / / [id number] Sigma Femoral Adapter Implanted:Qty: 1 on 01/25/2017 by Kirill Garcia MD at [facility] Right: Knee DEPUY 2026 96-0781 / / [id number] M.B.T Revision Step Wedge Implanted:Qty: 1 on 01/25/2017 by Kirill Garcia MD at [facility] Right: Knee DEPUY 07/10/2022 1294-56-130 / / [id number] Tibial Tray Rotating Platform M.B.T. Revision Implanted:Qty: 1 on 01/25/2017 by Kirill Garcia MD at [facility] Right: Knee DEPUY 04/11/2026 1294-35-130 / / [id number] Palacos R + G Bone Cement With Gentamicin Implanted:Qty: 1 on 01/25/2017 by Kirill Garcia MD at [facility] Right: Knee 06/09/2020-1113-140 -01 / / Description:Palacos r + g osvaldo ne cement with gentamicin Lot [id number] Cat no [id number] Exp 06-09-2020 Palacos R + G Bone Cement With Gentamicin Implanted:Qty: 1 on 01/25/2017 by Kirill Garcia MD at [facility] Right: Knee 03/11/2020 CAT 00-1113-140 -01 / / [id number] Description:Palacos r + g osvaldo ne cement with gentamicin Lot [id number] Exp 2020-03-11 Cat no [id number] Alston Stem Fluted Implanted:Qty: 1 on 01/25/2017 by Kirill Garcia MD at [facility] Right: Knee 2026 86-7414 / / [id number] Description:UNIVERSAL STEM F LUTED 75MM X 14MM REF 86-7414 LOT [id number] Sigma Tibial Insert Rotating Platform Tc3 Implanted:Qty: 1 on 01/25/2017 by Kirill Garcia MD at [facility] Right: Knee DEPUY 08/10/2019 96-2348 / / [id number] Distal Augment Combo Implanted:Qty: 1 on 01/25/2017 by Kirill Garcia MD at [facility] Right: Knee DEPUY 09/09/2024 96-0892 / / [id number] Posterior Augment Combo Implanted:Qty: 1 on 01/25/2017 by Kirill Garcia MD at [facility] Right: Knee DEPUY 2024 [id number] / / [id number] Oval Dome Patella 3 Peg Implanted:Qty: 1 on 01/25/2017 by Kirill Garcia MD at [facility] Right: Knee DEPUY 95-0102 / / [id number] Sigma Femoral Tc3 Cemented Implanted:Qty: 1 on 01/25/2017 by Kirill Garcia MD at [facility] Right: Knee DEPUY 05/12/2025 / / [id number] Insurance MEDICARE A AND B Advance Directives For more information, please contact: [phone] (7:30 AM - 6PM [facility] [place], Wednesday-Wednesday) * Full Code (Latest Code Status on File) Date Activated Date Inactivated Comments 01/25/2017 4:47 PM 01/28/2017 8:13 PM * Full Code Date Activated Date Inactivated Comments 01/25/2017 12:13 PM 01/25/2017 4:47 PM Care Teams Mental Health Program Manager Relationship Specialty Start Date End Date Miguel Ray II, MD [address] [place] [address] PCP - General Internal Medicine 01/06/17
--- OUTSIDE RECORDS SUMMARY | 2024-10-12 08:32 | XMS_ITS | Encounter Summary ---
Author Organization [facility] Address [address] [place] [address] Phone Care Team Providers Care Restaurant Shift Leader Name Role Phone Miguel Ray MD Primary Care Provider [phone] Encounter Details Date Type Department Care Team (Late Contact Info) Description 05/17/2024 Scanned Document [facility] [address] [place] [id number] Scanning, Generic Provider Social History Tobacco Use [...] Info) Description 10/17/2024 12:30 PM EDT Appointment [address] [place] [address] 10/30/2024 11:00 AM EDT Office Visit [address] 250 [place] [address] Jaleesa Cai MD 917 [facility] 130 [place], [place] [address] documented as of this encounter Visit Diagnoses Not on filedocumented in this encounter Additional Health Concerns Assessment Noted Time A fall risk assessment has been complete d for the patient 11/08/2023 10:45 AM EDT documented as of this encounter Care Teams Restaurant Shift Leader Relationship Specialty Start Date End Date Miguel Ray MD [address] [place] [facility] 110 [place] [address] PCP - General 11/04/22 documented as of this encounter
--- OUTSIDE RECORDS SUMMARY | 2024-10-12 08:32 | XMS_ITS | Encounter Summary ---
Author Organization [facility] Address [address] [facility] [place] [address] Care Team Providers Care Disbursing Officer Name Role Phone Miguel Ray MD Unavailable [phone] Miguel Ray MD Primary Care Provider [phone] Encounter Details Date Type Department Care Team ([facility] Contact Info) Description 11/10/2022 Abstract [facility] 112 [facility] 110 [place] [address] Miguel Ray MD 112 [facility] 110 [place] [address] Social History Tobacco Use Types Packs/Day Years [...] Office Visit [facility] 112 [facility] 110 [place] [address] Miguel Ray MD 112 [facility] 110 [place], [place] [address] 11/09/2024 1:10 PM EDT Office Visit [facility] [address] [place] [address] Yaniv Jarrett, DPM FACFAS [address] [place] [address] [place], [place] [address] documented as of this encounter Visit Diagnoses Not on filedocumented in this encounter Care Teams Disbursing Officer Relationship Specialty Start Date End Date Miguel Ray MD [address] [facility] 110 [place] [address] PCP - [employer] 04/12/22 Miguel Ray MD [address] [facility] 110 [place] [address] PCP - General Internal Medicine 09/08/22 documented as of this encounter
--- OUTSIDE RECORDS SUMMARY | 2024-10-12 08:32 | XMS_ITS | Clinical Summary ---
Author Organization [facility] Address [address] [place], [place] [address] Care Team Providers Care Supervisor Mattress And Boxsprings Name Role Phone Croy BATEMAN MD, Miguel Mendoza Primary Care Provider [phone] Allergies Active Allergy Reactions Criticality Noted Date Comments Penicillins Rash,Hives,Itching 01/24/2013 Medications metFORMIN 1,000 mg tablet Take 1 tablet by mouth once daily. 10/27/19 14 Active hydroxychloroquin e (PLAQUENIL) 200 mg tabletIndications :Erosive osteoarthritis of multiple sites take one tab twice a day with a meal, sunscreen when outdoors, see welt beater every 6-12months while on med 180 tablet [...] 2023 Advance Directive Discussion 04/12/2024 Influenza Vaccine (#1) 2024 Bone Density Screening Completed 01/22/2016, 2013 Procedures Procedure Name Priority Date/Time Associated Diagnosis Comments COMPREHENSIVE METABOLIC PANEL Routine 07/22/2016 12:55 PM EDT Elevated LFTs BMD BONE DENSITY Routine 01/22/2016 1:31 PM EDT Osteopenia from Last 3 Months or Most Recently Relevant to Health Maintenance Results * (ABNORMAL) COMP METABOLIC PANEL (07/22/2016 12:55 PM EDT) [facility] Protein, Total 7.2 6.3 - 8.0 g/dL 07/22/2016 11:05 PM [facility] Albumin 3.8(L) 3.9 - 4.9 g/dL 07/22/2016 11:05 PM [facility] Calcium 9.9 8.5 - 10.2 mg/dL 07/22/2016 11:05 PM [facility] Bilirubin, Total 0.4 0.2 - 1.3 mg/dL 07/22/2016 11:05 PM [facility] Alkaline Phosphatase 77 32 - 117 U/L 07/22/2016 11:05 PM [facility] AST 20 13 - 35 U/L 07/22/2016 11:05 PM [facility] Glucose 108(H) 74 - 99 mg/dL 07/22/2016 11:05 PM [facility] Comment: The [place] Diabetes Association (ADA) provides guidance for cutoff [...] Standards of Medical Care in Diabetes 2016, [place] Diabetes Association. Diabetes Care. 2016.39(Suppl 1). BUN 20 7 - 21 mg/dL 07/22/2016 11:05 PM [facility] Creatinine 0.71 0.58 - 0.96 mg/dL 07/22/2016 11:05 PM [facility] Sodium 140 136 - 144 mmol/L 07/22/2016 11:05 PM [facility] Potassium 4.6 3.7 - 5.1 mmol/L 07/22/2016 11:05 PM [facility] Chloride 102 97 - 105 mmol/L 07/22/2016 11:05 PM EDT [facility] CO2 24 22 - 30 mmol/L 07/22/2016 11:05 PM EDT [facility] Anion Gap 14 9 - 18 mmol/L 07/22/2016 11:05 PM EDT [facility] ALT 11 7 - 38 U/L 07/22/2016 11:05 PM EDT [facility] eGFR- >60 07/22/2016 11:05 PM EDT [facility] eGFR-All Other Races >60 . 07/22/2016 11:05 PM EDT [facility] Comment: eGFR (Estimated GFR) Units of [...] EDT Shirley Antony MD LABORATORY Final Result [facility] [address] [facility] [place] [address] * BMD BONE DENSITY (01/22/2016 1:31 PM [...] machine for accurate comparison. FOR MORE INFORMATION: [facility] Osteoporosis and Metabolic Bone Disease: www.ccf.org/arthritis/osteo National Osteoporosis Foundation: www.nof.org International Society of Clinical Densitometry www.iscd.org Corporate Training Manager: [id number] Transcribe Date/Time: Jan 22 2016 1:38P Dictated [...] , Gender: Female SCANNER INFORMATION: DXA Model: Parkt W (S/N: [id number]) SITE SCANNED: Lumbar spine and bilateral hips [...] Most Recently Relevant to Health Maintenance Insurance [facility] MEDICARE Care Teams Supervisor Mattress And Boxsprings Relationship Specialty Start Date End Date Miguel Ray II, MD PCP - General Internal Medicine 08/02/12
--- OUTSIDE RECORDS SUMMARY | 2024-10-12 08:32 | XMS_ITS | Encounter Summary ---
Author Organization [facility] Address [address] [facility] [place] [address] Care Team Providers Care Floor Tiling Professional Name Role Phone Miguel Ray MD Unavailable [phone] Miguel Ray MD Primary Care Provider [phone] Encounter Details Date Type Department Care Team (Late Contact Info) Description 05/19/2024 Abstract [facility] 112 [facility] 110 [place] [address] Miguel Ray MD 112 [facility] 110 [place] [address] Social History Tobacco Use Types Packs/Day Years [...] Office Visit [facility] 112 [facility] 110 [place] [address] Miguel Ray MD 112 [facility] 110 [place] [address] 11/09/2024 1:10 PM EDT Office Visit [facility] [address] [place] [address] Yaniv Jarrett, SAMIM FACFAS [address] [place] [address] documented as of this encounter Visit Diagnoses Not on filedocumented in this encounter Additional Health Concerns Assessment Noted Time PHQ-9 Depression Total Score: 1 09/30/19 24 10:00 AM EDT documented as of this encounter Care Teams Floor Tiling Professional Relationship Specialty Start Date End Date Miguel Ray MD [address] [place] [facility] 110 [place] [address] PCP - [employer] 04/12/22 Miguel Ray MD [address] [place] [facility] 110 [place] [address] PCP - General Internal Medicine 09/08/22 documented as of this encounter
--- OUTSIDE RECORDS SUMMARY | 2024-10-12 08:32 | XMS_ITS | Encounter Summary ---
Author Organization [facility] Address [address] [facility] [place] [address] Care Team Providers Care Lead Database Administrator Name Role Phone Miguel Ray MD Unavailable [phone] Miguel Ray MD Primary Care Provider [phone] Encounter Details Date Type Department Care Team (Late Contact Info) Description 05/19/2024 Abstract [facility] 112 [facility] 110 [place] [address] Miguel Ray MD 112 [facility] 110 [place] [address] Social History Tobacco Use Types Packs/Day Years [...] Office Visit [facility] 112 [facility] [facility] 110 [place] [address] Miguel Ray MD 112 [facility] 110 [place] [address] 11/09/2024 1:10 PM EDT Office Visit [facility] [address] [place] [address] Yaniv Jarrett, SAMIM FACFAS [address] [place] [address] documented as of this encounter Visit Diagnoses Not on filedocumented in this encounter Additional Health Concerns Assessment Noted Time PHQ-9 Depression Total Score: 1 09/30/19 24 10:00 AM EDT documented as of this encounter Care Teams Lead Database Administrator Relationship Specialty Start Date End Date Miguel Ray MD [address] [place] [facility] 110 [place] [address] PCP - [employer] 04/12/22 Miguel Ray MD [address] [facility] 110 [place] [address] PCP - General Internal Medicine 09/08/22 documented as of this encounter
--- OUTSIDE RECORDS SUMMARY | 2024-10-12 08:32 | XMS_ITS | Encounter Summary ---
Author Organization [facility] Address [address] [facility] [place] [address] Care Team Providers Care Windows Server Administrator Name Role Phone Miguel Ray MD Unavailable [phone] Miguel Ray MD Primary Care Provider [phone] Encounter Details Date Type Department Care Team (Late Contact Info) Description 01/25/2023 Abstract [facility] [address] [email or web address] 110 [place] [phone] Dorota Boyle PA [address] [facility] 110 [place] [address] Social History Tobacco Use Types Packs/Day Years [...] Visit [facility] [address] [email or web address] 110 [place] [address] Miguel Ray MD [address] [facility] 110 [place] [address] 11/09/2024 1:10 PM EDT Office Visit [facility] [address] [place] [address] Yaniv Jarrett, SAMIM FACFAS [address] [facility] [place] [address] documented as of this encounter Visit Diagnoses Not on filedocumented in this encounter Care Teams Windows Server Administrator Relationship Specialty Start Date End Date Miguel Ray MD [address] [place] [facility] 110 [place] [address] PCP - [employer] 04/12/22 Miguel Ray MD [address] [place] [facility] 110 [place] [address] PCP - General Internal Medicine 09/08/22 documented as of this encounter
--- OUTSIDE RECORDS SUMMARY | 2024-10-12 08:32 | XMS_ITS | Encounter Summary ---
Author Organization [facility] Address [address] [facility] [place] [address] Care Team Providers Care Alterations Manager Name Role Phone Miguel Ray MD Unavailable [phone] Miguel Ray MD Primary Care Provider [phone] Reason for Visit * Reason Comments Med Refill Encounter Details Date Type Department Care Team (Late Contact Info) Description 10/04/2024 Refill [facility] [address] [facility] 110 [place] [address] Miguel Ray MD [address] [facility] 110 [place] [address] Osteopenia after menopause Social History Tobacco Use Types Packs/Day Years [...] Visit [facility] [address] [facility] 110 [place] [address] Miguel Ray MD [address] [facility] 110 [place] [address] 11/09/2024 1:10 PM EDT Office Visit [facility] [address] [place] [address] Yaniv Jarrett, SAMIM FACFAS [address] [facility] [place] [place] [address] documented as of this encounter Visit Diagnoses Diagnosis Osteopenia after menopause documented in this encounter Additional Health Concerns Assessment Noted Time PHQ-9 Depression Total Score: 1 09/30/19 24 10:00 AM EDT documented as of this encounter Care Teams Alterations Manager Relationship Specialty Start Date End Date Miguel Ray MD [address] [facility] 110 [place] [address] PCP - [employer] 04/12/22 Miguel Ray MD [address] [facility] 110 [place] [address] PCP - General Internal Medicine 09/08/22 documented as of this encounter
--- OUTSIDE RECORDS SUMMARY | 2024-10-12 08:32 | XMS_ITS | Encounter Summary ---
Author Organization [facility] Address [address] [place] [address] Care Team Providers Care Geosciences Faculty Member Name Role Phone Miguel Ray MD Unavailable [phone] Miguel Ray MD Primary Care Provider [phone] Encounter Details Date Type Department Care Team (Late Contact Info) Description 11/02/2022 Orders Only [facility] [address] [facility] 110 [place] [address] A, Unknown Practice [address] [place], [place] [phone] Social History Tobacco Use Types Packs/Day Years [...] Visit [facility] [address] [facility] 110 [place] [address] Miguel Ray MD [address] [facility] 110 [place], [place] [address] 11/09/2024 1:10 PM EDT Office Visit [facility] [address] [place] [address] Yanvi Jarrett, DPTiffani FACFAS [address] [place] [address] documented as of this encounter Procedures Procedure [...] on filedocumented in this encounter Care Teams Geosciences Faculty Member Relationship Specialty Start Date End Date Miguel Ray MD [address] [facility] 110 [place] [address] PCP - [employer] 04/12/22 Miguel Ray MD [address] [facility] 110 [place] [address] PCP - General Internal Medicine 09/08/22 documented as of this encounter
--- OUTSIDE RECORDS SUMMARY | 2024-10-12 08:32 | XMS_ITS | Encounter Summary ---
Author Organization [facility] Address [address] [place] [address] Care Team Providers Care Trailer Sections Assembler Name Role Phone Miguel Ray MD Unavailable [phone] Miguel Ray MD Primary Care Provider [phone] Encounter Details Date Type Department Care Team (Late st Contact Info) Description 07/26/2024 Abstract [facility] [address] [facility] 110 [place] [phone] Miguel Ray MD [address] [facility] 110 [place] [address] Social History Tobacco Use Types Packs/Day Years [...] Visit [facility] [address] [facility] 110 [place] [address] Miguel Ray MD [address] [facility] 110 [place] [address] 11/09/2024 1:10 PM EDT Office Visit [facility] [address] [place] [address] DolceYaniv R, DPM FACFAS 368 [facility] [place] [address] documented as of this encounter Visit Diagnoses Not on filedocumented in this encounter Additional Health Concerns Assessment Noted Time PHQ-9 Depression Total Score: 1 09/30/19 24 10:00 AM EDT documented as of this encounter Care Teams Trailer Sections Assembler Relationship Specialty Start Date End Date Miguel Ray MD [address] [facility] 110 [place] [address] PCP - [employer] 04/12/22 Miguel Ray MD [address] [facility] 110 [place] [address] PCP - General Internal Medicine 09/08/22 documented as of this encounter
--- OUTSIDE RECORDS SUMMARY | 2024-10-12 08:32 | XMS_ITS | Encounter Summary ---
Author Organization [facility] Address [address] [facility] [place] [address] Care Team Providers Care Project/Production Manager Imaging Name Role Phone Miguel Ray MD Unavailable [phone] Miguel Ray MD Primary Care Provider [phone] Encounter Details Date Type Department Care Team (Late Contact Info) Description 05/30/2024 Abstract [facility] 112 [facility] 110 [place] [address] Miguel Ray MD 112 [facility] 110 [place] [address] Social History Tobacco Use Types Packs/Day Years [...] [address] [facility] 110 [place] [address] Miguel Ray MD 112 [facility] 110 [place] [address] 11/09/2024 1:10 PM EDT Office Visit [facility] [address] [place] [address] Yaniv Jarrett, SAMIM FACFAS [address] [place] [address] documented as of this encounter Visit Diagnoses Not on filedocumented in this encounter Additional Health Concerns Assessment Noted Time PHQ-9 Depression Total Score: 1 09/30/19 24 10:00 AM EDT documented as of this encounter Care Teams Project/Production Manager Imaging Relationship Specialty Start Date End Date Miguel Ray MD 112 [facility] 110 [place] [address] PCP - [employer] 04/12/22 Miguel Ray MD 112 [facility] 110 [place] [address] PCP - General Internal Medicine 09/08/22 documented as of this encounter
--- OUTSIDE RECORDS SUMMARY | 2024-10-12 08:32 | XMS_ITS | Encounter Summary ---
Author Organization [facility] Address [address] [facility] [place] [address] Care Team Providers Care Corporate Real Estate Manager Name Role Phone Miguel Ray MD Unavailable [phone] Miguel Ray MD Primary Care Provider [phone] Encounter Details Date Type Department Care Team ([facility] Contact Info) Description 11/20/2022 Abstract [facility] 112 [facility] 110 [place] [address] Miguel Ray MD 112 [facility] 110 [place] [address] Social History Tobacco Use Types Packs/Day Years [...] EDT Office Visit [facility] 112 [facility] 110 [place] [address] Miguel Ray MD 112 [facility] 110 [place], [place] [address] 11/09/2024 1:10 PM EDT Office Visit [facility] [address] [place] [address] Yaniv Jarrett, DPM FACFAS [address] [place] [address] [place], [place] [address] documented as of this encounter Visit Diagnoses Not on filedocumented in this encounter Care Teams Corporate Real Estate Manager Relationship Specialty Start Date End Date Miguel Ray MD [address] [facility] 110 [place] [address] PCP - [employer] 04/12/22 Miguel Ray MD [address] [facility] 110 [place] [address] PCP - General Internal Medicine 09/08/22 documented as of this encounter
--- OUTSIDE RECORDS SUMMARY | 2024-10-12 08:32 | XMS_ITS | Encounter Summary ---
Author Organization [facility] Address [address] [facility] [place] [address] Care Team Providers Care Percussion Instrument Tuner Name Role Phone Miguel Ray MD Unavailable [phone] Miguel Ray MD Primary Care Provider [phone] Encounter Details Date Type Department Care Team (Late Contact Info) Description 05/17/2024 Abstract [facility] 112 [facility] 110 [place] [address] Miguel Ray MD 112 [facility] 110 [place] [address] Social History Tobacco Use Types Packs/Day Years [...] [facility] [address] [facility] 110 [place] [address] Miguel Ray MD 112 [facility] 110 [place] [address] 11/09/2024 1:10 PM EDT Office Visit [facility] [address] [place] [address] Yaniv Jarrett, SAMIM FACFAS [address] [place] [address] documented as of this encounter Visit Diagnoses Not on filedocumented in this encounter Additional Health Concerns Assessment Noted Time PHQ-9 Depression Total Score: 1 09/30/19 24 10:00 AM EDT documented as of this encounter Care Teams Percussion Instrument Tuner Relationship Specialty Start Date End Date Miguel Ray MD [address] [place] [facility] 110 [place] [address] PCP - [employer] 04/12/22 Miguel Ray MD [address] [place] [facility] 110 [place] [address] PCP - General Internal Medicine 09/08/22 documented as of this encounter
--- OUTSIDE RECORDS SUMMARY | 2024-10-12 08:32 | XMS_ITS | Encounter Summary ---
Author Organization [facility] Address [address] [facility] [place] [address] Care Team Providers Care Assessment Services Manager Name Role Phone Miguel Ray MD Unavailable [phone] Miguel Ray MD Primary Care Provider [phone] Encounter Details Date Type Department Care Team (Late Contact Info) Description 11/20/2022 Orders Only [facility] [address] [facility] [facility] 110 [place] [phone] Dorota Boyle PA [address] [place] [facility] 110 [place] [address] Social History Tobacco Use Types Packs/Day Years [...] Office Visit [facility] [address] [facility] [facility] 110 [place] [address] Miguel Ray MD [address] [place] [facility] 110 [place] [address] 11/09/2024 1:10 PM EDT Office Visit [facility] [address] [place] [address] Yaniv Jarrett, DPM FACFAS 368 [facility] [place] [address] documented as of this encounter Procedures Procedure [...] on filedocumented in this encounter Care Teams Assessment Services Manager Relationship Specialty Start Date End Date Miguel Ray MD [address] [place] [facility] 110 [place] [address] PCP - [employer] 04/12/22 Miguel Ray MD [address] [facility] 110 [place], [place] [address] PCP - General Internal Medicine 09/08/22 documented as of this encounter
--- OUTSIDE RECORDS SUMMARY | 2024-10-12 08:32 | XMS_ITS | Encounter Summary ---
Author Organization [facility] Address [address] [place] [address] Phone Care Team Providers Care Fiberglass Insulation Installer Name Role Phone Miguel Ray MD Primary Care Provider [phone] Encounter Details Date Type Department Care Team (Late st Contact Info) Description 12/22/[address] [facility] [address] [place] [address] Conversion, Onbase Social History Tobacco Use Types [...] Info) Description 10/17/2024 12:30 PM EDT Appointment [address] [place] [address] [phone] 10/30/2024 11:00 AM EDT Office Visit [address] 250 [place] [address] Jaleesa Cai MD [address] [facility] 130 [place] [address] documented as of this encounter Procedures Procedure Name Priority Date/Time Associated Diagnosis Comments OUTSIDE IMAGING SCAN 12/22/2022 documented in this encounter Results * OUTSIDE IMAGING SCAN (12/22/2022) Anatomical Region Laterality Modality Other Narrative 12/22/2022 Ordered by an unspecified provider. us Onbase Conversion OUTSIDE SCAN Final Result documented in this encounter Visit Diagnoses Not on filedocumented in this encounter Care Teams Fiberglass Insulation Installer Relationship Specialty Start Date End Date Miguel Ray MD 112 [place] [address] PCP - General 11/04/22 documented as of this encounter
--- OUTSIDE RECORDS SUMMARY | 2024-10-12 08:32 | XMS_ITS | Encounter Summary ---
Author Organization [facility] Address [address] [place] [address] Phone Care Team Providers Care Tire Regrooving Machine Operator Name Role Phone Miguel Ray MD Primary Care Provider [phone] Encounter Details Date Type Department Care Team (Late st Contact Info) Description 11/28/2022 Scanned Document [facility] LE[facility]Y [address] [place] [address] Conversion, Onbase Social History Tobacco Use Types [...] Info) Description 10/17/2024 12:30 PM EDT Appointment [address] [place] [address] [phone] 10/30/2024 11:00 AM EDT Office Visit [address] [place] [address] Jaleesa Cai MD [address] [facility] 130 [place] [address] documented as of this encounter Procedures Procedure Name Priority Date/Time Associated Diagnosis Comments ECHOCARDIOGRAM 11/28/2022 documented in this encounter Results * ECHOCARDIOGRAM (11/28/2022) Narrative 11/28/2022 Ordered by an unspecified provider. us Onbase Conversion CV ECHO PROCEDURES Final Resul t documented in this encounter Visit Diagnoses Not on filedocumented in this encounter Care Teams Tire Regrooving Machine Operator Relationship Specialty Start Date End Date Miguel Ray MD 112 [place] [address] PCP - General 11/04/22 documented as of this encounter
--- OUTSIDE RECORDS SUMMARY | 2024-10-12 08:32 | XMS_ITS | Encounter Summary ---
Author Organization [facility] Address [address] [facility] [place] [address] Care Team Providers Care Commercial Instructor Supervisor Name Role Phone Miguel Ray MD Unavailable [phone] Miguel Ray MD Primary Care Provider [phone] Encounter Details Date Type Department Care Team ([facility] Contact Info) Description 01/20/2023 Abstract [facility] 112 [facility] 110 [place] [address] Miguel Ray MD 112 [facility] 110 [place] [address] Social History Tobacco Use Types Packs/Day Years [...] Upcoming Encounters Date Type Department Care Team ([facility] Contact Info) Description 10/25/2024 9:30 AM EDT Office Visit [facility] 112 [facility] 110 [place] [address] Miguel Ray MD 112 [facility] 110 [place], [place] [address] 11/09/2024 1:10 PM EDT Office Visit [facility] [address] [place] [address] Yaniv Jarrett, DPM FACFAS [address] [place] [address] Gay[place], [place] [address] documented as of this encounter Visit Diagnoses Not on filedocumented in this encounter Care Teams Commercial Instructor Supervisor Relationship Specialty Start Date End Date Miguel Ray MD [address] [facility] 110 [place] [address] PCP - Hum[employer] 04/12/22 Miguel Ray MD [address] [facility] 110 [place] [address] PCP - General Internal Medicine 09/08/22 documented as of this encounter
--- OUTSIDE RECORDS SUMMARY | 2024-10-12 08:32 | XMS_ITS | Encounter Summary ---
Author Organization [facility] Address [address] [facility] [place] [address] Care Team Providers Care Mash Tub Cooker Name Role Phone Miguel Ray MD Unavailable [phone] Miguel Ray MD Primary Care Provider [phone] Encounter Details Date Type Department Care Team (Late Contact Info) Description 11/11/2023 Abstract [facility] 112 [facility] 110 [place] [address] Miguel Ray MD [address] [facility] 110 [place] [address] Social History Tobacco Use Types Packs/Day Years [...] Visit [facility] [address] [facility] 110 [place] [address] Miguel Ray MD 112 [facility] 110 [place] [address] 11/09/2024 1:10 PM EDT Office Visit [facility] [address] [place] [address] Yaniv Jarrett, SAMIM FACFAS [address] [place] [address] documented as of this encounter Visit Diagnoses Not on filedocumented in this encounter Additional Health Concerns Assessment Noted Time PHQ-9 Depression Total Score: 1 09/30/19 24 10:00 AM EDT documented as of this encounter Care Teams Mash Tub Cooker Relationship Specialty Start Date End Date Miguel Ray MD 112 [place] [facility] 110 [place] [address] PCP - [employer] 04/12/22 Miguel Ray MD [address] [place] [facility] 110 [place] [address] PCP - General Internal Medicine 09/08/22 documented as of this encounter
--- OUTSIDE RECORDS SUMMARY | 2024-10-12 08:32 | XMS_ITS | Clinical Summary ---
Author Organization [facility] Address [address] [place] [address] Care Team Providers Care News Editor Name Role Phone Miguel Ray MD Unavailable [phone] Miguel Ray MD Primary Care Provider [phone] Allergies Active Allergy Reactions Criticality Noted Date Comments Penicillin G Benzathine Hives 04/01/2021 Penicillins Hives,Itching,Rash,Unknown Low 01/25/20 13 Medications Magnesium Glycinate 665 MG capsule as directed Orally Active Accu-Chek Guide test strip 1 each by Other route in the morning. 023 Active atorvastatin (Lipitor) 40 MG tablet Take 40 mg by mouth at bedtime. 023 Active gabapentin (Neurontin) 300 MG capsuleIndication s:Polyneuropathy associated with underlying disease (HCC) Take 1 capsule (300 mg) by mouth at bedtime 90 capsule 3 024 2024 Active Alcohol Swabs (DropSafe Alcohol Prep) 70 % padsIndications:T ype 2 diabetes mellitus with peripheral angiopathy (HCC) USE DIRECTED EVERY DAY 100 each 3 024 Active Accu-Chek Softclix Lancets lancetsIndication s:Type 2 diabetes mellitus with peripheral angiopathy (HCC) TEST BLOOD SUGAR EVERY DAY DIRECTED 100 each 3 024 Active linaGLIPtin (Tradjenta) 5 MG tabletIndications :Type 2 diabetes mellitus with peripheral angiopathy (HCC) Take 1 tablet (5 mg) by mouth Daily 100 tablet 3 025 2025 Active aspirin 81 MG EC tablet Take 2 tablets (162 mg) by mouth Daily 200 tablet 025 Active diclofenac sodium 3 % gelIndications:Pr imary osteoarthritis involving multiple joints Apply 0.5 g topically in the morning and 0.5 g before bedtime. 200 g 2 025 Active glimepiride (Amaryl) 2 MG tabletIndications :Type 2 diabetes mellitus with peripheral angiopathy (HCC) TAKE 1 TABLET BY MOUTH IN THE MORNING BEFORE MEAL 100 tablet 3 025 Active cholecalciferol (Vitamin D-3) 50 MCG (2000 UT) tabletIndications :Osteopenia after menopause TAKE 1 TABLET BY MOUTH EVERY DAY 100 tablet 1 025 Active calcium citrate (Calcitrate) 950 (200 Ca) MG tabletIndications :Osteopenia after menopause TAKE 1 TABLET BY MOUTH EVERY DAY 100 tablet 3 025 Active calcium citrate (Calcitrate) 950 (200 Ca) MG tabletIndications :Osteopenia after menopause TAKE 1 TABLET BY MOUTH EVERY DAY 100 tablet 1 025 2024 Discontinued ammonium lactate (Lac-Hydrin) 12 % lotionIndications :Xerosis Cutis Apply 1 application topically if needed for dry skin Apply to feet twice daily 60 g 1 025 2024 Active Problems Problem Noted Date Diagnosed Date [...] Diabetes mellitus 01/25/2017 07/07/2023 Obesity (BMI 30.0-34.9) 01/25/2017/10/2023 Type 2 diabetes mellitus without complication 01/29/20 15 07/07/2023 Encounters Date Type Department Care Team Description 10/04/2024 Refill [facility] [address] [place] [address] [place] [address] Miguel Ray MD Osteopenia after menopause 09/29/2024 Abstract [facility] [address] [place] [address] [place] [address] Miguel Ray MD 09/12/2024 Clinisync Result Encounter [facility] External Department Unsolicited Provider, Generic External Data 08/31/2024 1:00 PM EDT Office Visit [facility] [address] [place] [address] DolYaniv christine R, DPM FACFAS Onychomycosis (Primary Dx); Type II diabetes mellitus with neurological manifestations (HCC); Pain in right toe(s); Pain in left toe(s) 08/31/2024 Bamboo flowsheet [facility] [address] [place] [phone] DolShila christinem R, DPM FACFAS 08/24/2024 Clinisync Result Encounter [facility] External Department Unsolicited Provider, Generic External Data 08/23/2024 [address]ill [facility] [address] [facility] [address] [place] [address] Miguel Ray MD Osteopenia after menopause 08/02/2024 Refill [facility] [address] [facility] [address] [place] [address] Miguel Ray MD Type 2 diabetes mellitus with peripheral angiopathy (HCC) 07/27/2024 Abstract [facility] [address] [place] [address] [place] [address] Miguel Ray MD 07/26/2024 10:30 AM EDT Office Visit [facility] [address] [facility] [address] [place] [address] Miguel Ray MD Primary osteoarthritis involving multiple joints (Primary Dx); Chronic bilateral low back pain with bilateral sciatica; Exudative age-related macular degeneration, bilateral, with active choroidal neovascularization (HCC); Morbid (severe) obesity due to excess calories ([facility]-H[facility]); Essential (primary) hypertension ; Body mass index (BMI) 36.0-36.9, adult 07/26/2024 Abstract [facility] [address] [facility] [address] [place] [address] Miguel Ray MD 07/26/2024 Telephone [facility] [address] [facility] [address] [place] [address] Miguel Ray MD PA DICLOFENAC GEL 07/26/2024 Y'all flowsheet [facility] [address] [place] [address] [place] [address] Miguel Ray MD 07/26/2024 Travel from Last [...] Office Visit [facility] [address] [facility] 110 [place] [address] Miguel Ray MD 112 [facility] 110 [place] [address] 11/09/2024 1:10 PM EDT Office Visit [facility] [address] [place] [address] Yaniv Jarrett, DPM FACFAS [address] [facility] [place] [address] Health Maintenance Due Date Last Done Comments Diabetes: Retinopathy Screening 10/24/2023 10/23/2022, 12/17/2021, 12/09/2021, Additional history exists Diabetes: Hemoglobin A1C 09/14/2024 025, 01/19/2024, 10/18/2023, Additional history exists Medicare Annual Wellness (AWV) 09/29/2024 0 09/30/2023, 10/12/2022, 10/08/2021 Diabetes: Urine Protein Screening 10/03/2024 10/04/2023, 01/26/2023, 10/08/2021, Additional history exists Influenza Vaccine (#1) 2024 4, 12/25/2022, 01/26/2022, Additional history exists Pneumococcal Vaccine: 65+ Years Completed 3, 07/13/2000 Procedures Procedure Name Priority Date/Time Associated Diagnosis [...] AM EDT Narrative 09/12/2024 11:54 [place] [address] Magnetic Resonance Report Signed Patient: ORIANA RUSSELL MR#: [id number] : 1940 Acct:[id number] Age/Sex: 83 / F ADM Date: 09/12/24 Loc: MRI Attending Dr: Esme Padilla NP Ordering Physician: Esme Padilla NP Date of Service: 09/12/24 Procedure(s): MR lumbar spine wo con Accession Number(s): [id number] cc: MIGUEL RAY ; Esme Padilla NP [place] [address] Patient Name: ORIANA RUSSELL MRN: [id number] date: 1940 Sex: F Assigned Patient Location: MRI Current Patient Location: MRI Accession/Order Number: [id number] Exam Date: 09/12/2024 11:46 Report Date: 09/12/2024 [...] Dean M.D. 09/12/2024 11:51 AM Dictation Location: [place] [address] Electronically authenticated by: [id number] Y Date: 09/12/2024 11:51 Dictated By: Nikita Dean M.D. Signed By: 09/12/24 1154 DD/ 1151 TD/TT: Nailing Machine Feeder: Procedure Note Radiology, Radiologist, MD - 09/12/2024 [place] [address] Magnetic Resonance Report Signed Patient: ORIANA RUSSELL [facility]#: [id number] : 1940cct:[id number] Age/Sex: 83 / FADM Date: 09/12/24 Loc: MRI Attending Dr: Esme Padilla NP Ordering Physician: Esme Padilla NP Date of Service: 09/12/24 Procedure(s): MR lumbar spine wo con Accession Number(s): [id number] cc: MIGUEL RAY ; Esme Padilla NP [address] [place] [id number] Patient Name: ORIANA RUSSELL MRN: [id number] date: 1940 Sex: F Assigned Patient Location: MRI Current Patient Location: MRI Accession/Order Number: [id number] Exam Date: 09/12/2024 11:46 Report Date: 09/12/2024 [...] Dean M.D. 09/12/2024 11:51 AM Dictation Location: [place] [address] Electronically authenticated by: [id number] Y Date: 1:51 Dictated By: Nikita Dean M.D. Signed By:09/12/24 1154 DD/ 1151 TD/TT: Nailing Machine Feeder: Generic External Data Provider [facility] Final Result * XR LUMBAR SPINE 6V W BENDING (08/24/2024 10:24 AM EDT) Anatomical Region Laterality Modality Other 08/24/2024 10:2 4 AM EDT Narrative 08/24/2024 10:26 [place] [address] XRay Report Signed Patient: ORIANA RUSSELL MR#: [id number] : 1940 Acct:[id number] Age/Sex: 83 / F ADM Date: 08/24/24 Loc: LAB Attending Dr: Esme Padilla NP Ordering Physician: Esme Padilla NP Date of Service: 08/24/24 Procedure(s): XR lumbar spine 6V w bending Accession Number(s): [id number] cc: MIGUEL RAY ; Esme Padilla NP [place] [address] Patient Name: ORIANA RUSSELL MRN: [id number] date: 1940 Sex: F Assigned Patient Location: LAB Current Patient Location: LAB Accession/Order Number: [id number] Exam Date: 08/24/2024 10:20 Report Date: 08/24/2024 [...] Dean M.D. 08/24/2024 10:24 AM Dictation Location: [place] [address] Electronically authenticated by: [id number] Y Date: 08/24/2024 10:24 Dictated By: Nikita Dean M.D. Signed By: 08/24/24 1026 DD/ 1024 TD/TT: Nailing Machine Feeder: Procedure Note Radiology, Radiologist, - 08/24/2024 [place] [address] XRay Report Signed Patient: ORIANA RUSSELL SMR#: [id number] : 1940cct:[id number] Age/Sex: 83 / FADM Date: 08/24/24 Loc: LAB Attending Dr: Esme Padilla NP Ordering Physician: Esme Padilla NP Date of Service: 08/24/24 Procedure(s): XR lumbar spine 6V w bending Accession Number(s): [id number] cc: MIGUEL RAY ; Esme Padilla NP [facility] [place] [id number] Patient Name: ORIANA RUSSELL MRN: [facility]:[id number] date: 1940 Sex: F Assigned Patient Location: LAB Current Patient Location: LAB Accession/Order Number: [id number] Exam Date: 08/24/2024 10:20 Report Date: 08/24/2024 [...] Dean M.D. 08/24/2024 10:24 AM Dictation Location: [place] Electronically authenticated by: [id number] Y Date: 0:24 Dictated By: Nikita Dean M.D. Signed By:08/24/24 1026 DD/ 1024 TD/TT: Nailing Machine Feeder: Generic External Data Provider [facility] Final [...] Performing Organization Information Site ID: QPT Name: [facility] Address: [address] [place] [address], [address] [place] [phone] Director: Miky Ruby MD us Aisha Okeefe JOB FOREMAN LAB URINE ORDERABLES Final Resul t QUEST * (ABNORMAL) Diabetic Retinopathy Screening - OU - Both Eyes (10/23/2022) RESULTS Retinopathy Anatomical Region Laterality Modality Head Other Other 10/23/2022 Dorota NOVAK OPHTH PHOTOGRAPHY Final Result from Last 3 Months or Most Recently Relevant to Health Maintenance Insurance [address] [place] [phone] [employer] Care Teams News Editor Relationship Specialty Start Date End Date Miguel Ray MD [address] [facility] 110 [place] [address] PCP - [employer] 04/12/22 Miguel Ray MD [address] [address] PCP - General Internal Medicine 09/08/22
--- OUTSIDE RECORDS SUMMARY | 2024-10-12 08:32 | XMS_ITS | Encounter Summary ---
Author Organization [facility] Address [address] [facility] [place] [address] Care Team Providers Care Marriage Counselor Minister Name Role Phone Miguel Ray MD Unavailable [phone] Miguel Ray MD Primary Care Provider [phone] Encounter Details Date Type Department Care Team ([facility] Contact Info) Description 11/04/2022 Abstract [facility] 112 [facility] 110 [place] [address] Miguel Ray MD 112 [facility] 110 [place], [place] [address] Social History Tobacco Use Types Packs/Day Years [...] Office Visit [facility] 112 [facility] 110 [place] [address] Miguel Ray MD 112 [facility] 110 [place], [place] [address] 11/09/2024 1:10 PM EDT Office Visit [facility] [address] [place] [address] Yaniv Jarrett, DPM FACFAS [address] [place] [address] Gayatri [place], [place] [address] documented as of this encounter Visit Diagnoses Not on filedocumented in this encounter Care Teams Marriage Counselor Minister Relationship Specialty Start Date End Date Miguel Ray MD [address] [facility] 110 [place] [address] PCP - [employer] 04/12/22 Miguel Ray MD [address] [facility] 110 [place] [address] PCP - General Internal Medicine 09/08/22 documented as of this encounter
--- OUTSIDE RECORDS SUMMARY | 2024-10-12 08:32 | XMS_ITS | Encounter Summary ---
Author Organization [facility] Address [address] [facility] [place] [address] Care Team Providers Care Retail Assistant Name Role Phone Miguel Ray MD Unavailable [phone] Miguel Ray MD Primary Care Provider [phone] Encounter Details Date Type Department Care Team (Late Contact Info) Description 05/22/2024 Abstract [facility] 112 [facility] 110 [place] [address] Miguel Ray MD 112 [facility] 110 [place] [address] Social History Tobacco Use Types Packs/Day Years [...] Office Visit [facility] [address] [facility] 110 [place] [address] Miguel Ray MD 112 [facility] 110 [place] [address] 11/09/2024 1:10 PM EDT Office Visit [facility] [address] [place] [address] Yaniv Jarrett, SAMIM FACFAS [address] [place] [address] documented as of this encounter Visit Diagnoses Not on filedocumented in this encounter Additional Health Concerns Assessment Noted Time PHQ-9 Depression Total Score: 1 09/30/19 24 10:00 AM EDT documented as of this encounter Care Teams Retail Assistant Relationship Specialty Start Date End Date Miguel Ray MD 112 [facility] 110 [place] [address] PCP - [employer] 04/12/22 Miguel Ray MD [address] [facility] 110 [place] [address] PCP - General Internal Medicine 09/08/22 documented as of this encounter
--- OUTSIDE RECORDS SUMMARY | 2024-10-12 08:32 | XMS_ITS | Encounter Summary ---
Author Organization [facility] Address [address] [facility] [place] [address] Care Team Providers Care Sausage Smoker Name Role Phone Miguel Ray MD Unavailable [phone] Miguel Ray MD Primary Care Provider [phone] Encounter Details Date Type Department Care Team (Late Contact Info) Description 09/29/2024 Abstract [facility] 112 [facility] 110 [place] [address] Miguel Ray MD 112 [facility] 110 [place] [address] Social History Tobacco Use Types Packs/Day Years [...] Office Visit [facility] [address] [facility] 110 [place] [address] Miguel Ray MD 112 [facility] 110 [place] [address] 11/09/2024 1:10 PM EDT Office Visit [facility] [address] [place] [address] Yaniv Jarrett, SAMIM FACFAS [address] [place] [address] documented as of this encounter Visit Diagnoses Not on filedocumented in this encounter Additional Health Concerns Assessment Noted Time PHQ-9 Depression Total Score: 1 09/30/19 24 10:00 AM EDT documented as of this encounter Care Teams Sausage Smoker Relationship Specialty Start Date End Date Miguel Ray MD [address] [facility] [facility] 110 [place] [address] PCP - [employer] 04/12/22 Miguel Ray MD [address] [facility] 110 [place] [address] PCP - General Internal Medicine 09/08/22 documented as of this encounter
--- OUTSIDE RECORDS SUMMARY | 2024-10-12 08:32 | XMS_ITS | Encounter Summary ---
Author Organization [facility] Address [address] [place] [address] Care Team Providers Care Staff Research Associate Name Role Phone Miguel Ray MD Unavailable [phone] Miguel Ray MD Primary Care Provider [phone] Encounter Details Date Type Department Care Team (Late st Contact Info) Description 10/11/2022 Abstract [facility] [address] [facility] 110 [place] [address] Miguel Ray MD [address] [facility] 110 [place] [address] Social History Tobacco Use Types Packs/Day Years [...] Office Visit [facility] [address] [facility] [address] [place] [address] Miguel Ray MD [address] [facility] [address] [place] [address] 11/09/2024 1:10 PM EDT Office Visit [facility] [address] [place] [address] DolYaniv christine, DPM FACFAS [address] [place] [address] documented as of this encounter Visit Diagnoses Not on filedocumented in this encounter Care Teams Staff Research Associate Relationship Specialty Start Date End Date Miguel Ray MD [address] [place] [facility] 110 [place] [address] PCP - [employer] 04/12/22 Miguel Ray MD [address] [facility] [address] [place] [address] PCP - General Internal Medicine 09/08/22 documented as of this encounter
--- OUTSIDE RECORDS SUMMARY | 2024-10-12 08:32 | XMS_ITS | Encounter Summary ---
Author Organization [facility] Address [address] [facility] [place] [address] Care Team Providers Care Broiler Manager Name Role Phone Miguel Ray MD Unavailable [phone] Miguel Ray MD Primary Care Provider [phone] Encounter Details Date Type Department Care Team ([facility] Contact Info) Description 11/17/2022 Abstract [facility] 112 [facility] 110 [place] [address] Miguel Ray MD 112 [facility] 110 [place] [address] Social History Tobacco Use Types Packs/Day Years [...] Upcoming Encounters Date Type Department Care Team ([facility] Contact Info) Description 10/25/2024 9:30 AM EDT Office Visit [facility] 112 [facility] 110 [place] [address] Miguel Ray MD 112 [facility] 110 [place], [place] [address] 11/09/2024 1:10 PM EDT Office Visit [facility] [address] [place] [address] Yaniv Jarrett, DPM FACFAS [address] [place] [address] Gayatri [place], [place] [address] documented as of this encounter Visit Diagnoses Not on filedocumented in this encounter Care Teams Broiler Manager Relationship Specialty Start Date End Date Miguel Ray MD [address] [facility] 110 [place] [address] PCP - [employer] 04/12/22 Miguel Ray MD [address] [facility] 110 [place] [address] PCP - General Internal Medicine 09/08/22 documented as of this encounter
--- OUTSIDE RECORDS SUMMARY | 2024-10-12 08:32 | XMS_ITS | Encounter Summary ---
Author Organization [facility] Address [address] [facility] [place] [address] Care Team Providers Care Technical Support Engineer Name Role Phone Miguel Ray MD Unavailable [phone] Miguel Ray MD Primary Care Provider [phone] Encounter Details Date Type Department Care Team ([facility] Contact Info) Description 10/15/2022 Abstract [facility] 112 [facility] 110 [place] [address] Miguel Ray MD 112 [facility] 110 [place] [address] Social History Tobacco Use Types Packs/Day Years [...] Office Visit [facility] 112 [facility] 110 [place] [address] Miguel Ray MD 112 [facility] 110 [place], [place] [address] 11/09/2024 1:10 PM EDT Office Visit [facility] [address] [place] [address] Yaniv Jarrett, DPM FACFAS [address] [place] [address] Gayatri [place], [place] [phone] documented as of this encounter Visit Diagnoses Not on filedocumented in this encounter Care Teams Technical Support Engineer Relationship Specialty Start Date End Date Miguel Ray MD [address] [facility] [address] [place] [address] PCP - [employer] 04/12/22 Miguel Ray MD [address] [facility] [address] [place] [address] PCP - General Internal Medicine 09/08/22 documented as of this encounter
--- OUTSIDE RECORDS SUMMARY | 2024-10-12 08:33 | XMS_ITS | Clinical Summary ---
Author Organization [facility] Address [address] [place] [address] Phone Care Team Providers Care Sap Gatherer Name Role Phone Miguel Ray MD Primary Care Provider [phone] Allergies Active Allergy Reactions Criticality Noted Date [...] 06/17/2023 At moderate risk for fall 06/17/2023 Encounters Date Type Department Care Team Description 10/11/[address] [address] Emilia Martinez RN 10/11/[address] [address] Emilia Martinez RN Error (VOID this visit) from Last 3 Months Immunizations Immunization Administration Dates Next Due Flu [...] Info) Description 10/17/2024 12:30 PM EDT Appointment [address] [place] [address] 10/30/2024 11:00 AM EDT Office Visit [address] [place] [address] Jaleesa Cai MD [address] [facility] [address] [place] [address] Health Maintenance Due Date Last Done Comments Diabetes: Hemoglobin A1C 1940 Medicare Annual Wellness Visit (AWV) 1940 Diabetes: Retinopathy Screening 1952 DTaP/Tdap/Td Vaccines (1 - Tdap) 1964 RSV High Risk: (Elderly (60+) or Population) (1 - 1-dose 75+ series) 2017 COVID-19 Vaccine ( - season) 2023 Diabetes: Urine Protein Screening 10/03/2024 10/04/2023 Lipid Panel 10/03/2024 10/04/2023 Influenza Vaccine (#1) 2024 , 12/25/2022, 01/26/2022, Additional history exists Bone Density Scan 10/24/2025 10/25/2023, , 10/20/2021 Pneumococcal Vaccine Completed 07/01/2022, 07/14/19 Zoster Vaccines Completed 03/15/2023, 12/25/2022 HIB Vaccines Aged Out No longer eligi ble based on patient's age to complete this topic HPV Vaccines (No Doses Required) Completed Hepatitis A Vaccines Aged Out No long [...] patient's age to complete this topic Insurance [employer] Care Teams Sap Gatherer Relationship Specialty Start Date End Date Miguel Ray MD 112 [facility] 110 [place] [address] PCP - General 11/04/22
--- NOTE | 2024-10-12 09:04 | PM.CN ---
Consult Note: HPI Data of Consult Patient: known to practice within the last 3 years Requesting Physician: Rosenda Israel NP Primary Care Provider: LUPE RUFFIN Consult Narrative Reason for consult: back pain Narrative: Oriana Martin a pleasant 84 year old female presents for evaluation of chronic low back pain >3 years with worsening low back and left leg pain over the last 5 months. Pt has failed to benefit from > 6 weeks of provider guided HEP, heat, ice, tylenol, cannot take NSAIDs due to GERD. denies falls or injury. pain 0/10 increasing to 5-6/10 with standing, walking, sitting, housework, lifting. Pain mildly improved with lying down. currently utilizing tylenol, gabapentin, and magnesium with mild relief. recently underwent left L4-5 L5-S1 TFESI with 100% improvement in NC per pt. cc:: CC: Rosenda Israel NP [facility] Medical History (Updated 09/27/24 @ 14:33 by Jamee Canales RN) Rheumatoid arthritis �M06.9 - Rheumatoid arthritis, unspecified (ICD-10) Diabetes �E11.9 - Type 2 diabetes mellitus without complications (ICD-10) Kidney stone �N20.0 - Calculus of kidney (ICD-10) Cirrhosis of liver �K74.60 - Unspecified cirrhosis of liver (ICD-10) Pacemaker �Z95.0 - Presence of cardiac pacemaker (ICD-10) High cholesterol �E78.00 - Pure hypercholesterolemia, unspecified (ICD-10) Heart valve problem �I38 - Endocarditis, valve unspecified (ICD-10) Surgical History (Updated 09/27/24 @ 14:33 by Jamee Canales RN) History of heart surgery �Z98.890 - Other specified postprocedural states (ICD-10) History of knee replacement �Z96.659 - Presence of unspecified artificial knee joint (ICD-10) Hx of cholecystectomy �Z90.49 - Acquired absence of other specified parts of digestive tract (ICD-10) H/O bariatric surgery �Z98.84 - Bariatric surgery status (ICD-10) History of back surgery �Z98.890 - Other specified postprocedural states (ICD-10) Meds Home Medications and Allergies Home Medications �Medication �Instructions �Recorded �Confirmed �Type aspirin 81 mg tablet 81 mg PO DAILY 09/27/24 09/27/24 History atorvastatin 40 mg tablet 40 mg PO DAILY 09/27/24 09/27/24 History calcium citrate 200 mg PO DAILY 09/27/24 09/27/24 History cholecalciferol (vitamin D3) 50 2,000 unit PO DAILY 09/27/24 09/27/24 History mcg (2,000 unit) capsule gabapentin 300 mg capsule 300 mg PO DAILY 09/27/24 09/27/24 History glimepiride 2 mg tablet 2 mg PO DAILY 09/27/24 09/27/24 History linagliptin 5 mg tablet (Tradjenta) 5 mg PO DAILY 09/27/24 09/27/24 History lisinopril 2.5 mg tablet 2.5 mg PO DAILY 09/27/24 09/27/24 History magnesium glycinate 100 mg (as 100 mg PO DAILY 09/27/24 09/27/24 History glycinate) tablet (Mag Glycinate) Allergies Allergy/AdvReac Type Severity Reaction Status Date / Time Penicillins Allergy Hives Verified 09/27/24 14:29 Exam Constitutional Documenting provider has reviewed patient's vital signs: yes Common normals: no apparent distress, oriented x3, healthy appearing, alert and well nourished General appearance: cooperative [facility] Common normals: normocephalic, hearing grossly normal bilaterally and moist oral mucous membranes Head and scalp: normocephalic Eye Common normals: PERRL Pupil: PERRL Neck & C-Spine Common normals: full ROM General: normal visual inspection Chest Common normals: inspection of chest normal Respiratory Common normals: normal respiratory effort, no retractions and no use of accessory muscles Back & Pelvis Lumbar spine/lower back: ROM limited, pain with ROM, lumbar spinal tenderness Lumbar spinal tenderness location: L3, L4 and L5 and straight leg raise negative bilaterally Sacroiliac joints: SI joint(s) abnormal Other: sensation intact BLE strength 5/5 in BLE left sij positive berlin(patricks), gaenslens, thigh thrust, compression test Extremity Common normals: normal to inspection and full ROM Neuro Common normals: oriented x3 Sensorium/orientation: alert Psych Common normals: mental status grossly normal, thought process normal, cooperative, affect normal, speech normal and activity/motor behavior normal Speech: normal speech Thought process: normal thought process Results Additional Findings Additional findings: If on a controlled substance or opioids, I have checked an [place] report on this patient and there are no aberrancies noted in the prescribing history.��If on a controlled substance or opioid a drug screen was completed and reviewed within the last year, and if there has not been a drug screen completed we ordered one today to monitor higher risk, state monitored pain medication use. As part of providing excellent, safe, comprehensive care, the following was completed at our patient's visit: 1. A medication reconciliation and review to ensure accurate knowledge of current/active medications, including asking our patients to inform us about any [id number] medications or herbal remedies/nutritional supplements/alternative remedies. 2. A review to specifically ensure our patients have had annual screening for screening for depression, screening for tobacco use, and screening for unhealthy alcohol use. For concerning screenings had a discussion with the patient, provided patient education, and recommended follow-up with primary care provider when appropriate. If patient noted with a risk of falling, they received education on strength, gait, and balance training to prevent future risk of falling. Portions of this note may have been carried over from the previous visit and updated as appropriate. Please note this office utilizes paper charting in addition to the electronic medical record. A list of current medications, vitals, and PMH is available there as the clinical staff outside of myself do not have access to [employer] charting during the clinic day operations. As part of providing quality comprehensive care the current medications, vitals, and PMH were reviewed in the paper chart. Assessment and Plan Assessment and Plan (1) Lumbar spondylosis: Assessment and Plan: continues to endorse moderate low back pain with activities, information provided on lumbar MBBs/RFAs. consider bilateral L4-5 L5-S1 MBB x2 in consideration of RFA (2) Sacroiliitis: (3) Lumbar stenosis with neurogenic claudication: Assessment and Plan: 10/02/24 left L4-5 L5-S1 TFESI >80% improvement in NC Plan pleasant 84 year old female with chronic low back pain unresponsive to > 6 weeks of PT/HEP, heat, ice, tylenol, nsaids. upcoming aquatherapy. continue current medications. f/u 1 month, sooner if needed
== END 2024-10-12 08:30 | disposition home or self-care (01) ==
LOC: PM 08:30
PROVIDERS: PCP Internal Medicine; Visit Provider Nurse Practitioner
DX: M47.816 Spondylosis without myelopathy or radiculopathy, lumbar region (principal); M46.1 Sacroiliitis, not elsewhere classified; M48.062 Spinal stenosis, lumbar region with neurogenic claudication
CPT/HCPCS: G0463

== ENCOUNTER 2024-11-16 08:22 | Outpatient (OUT) | payer MEDICARE, SELFPAY ==
--- OUTSIDE RECORDS SUMMARY | 2024-11-09 13:10 | XMS_ITS | Encounter Summary ---
Author Organization [facility] Address [address] [place] [address] Care Team Providers Care Hog Operator Name Role Phone Miguel Ray MD Unavailable [phone] Miguel Ray MD Primary Care Provider [phone] Reason for Visit * Reason Comments Toenail Care Non DM nail care Encounter Details Date Type Department Care Team (Latest Contact Info) Description 11/09/2024 1:10 PM EDT Office Visit [facility] [address] [place] [address] Yaniv Jarrett, DPM FACFAS [address] [facility] [place] [address] Onychomycosis (Primary Dx); Type II diabetes mellitus with neurological manifestations (HCC); Pain in right toe(s); Pain in left toe(s) Social History Tobacco Use Types Packs/Day Years Used Date Smoking Tobacco: Never Smokeless Tobacco: Never Tobacco Cessation:Counseling Given: Yes Alcohol Use Standard Drinks/Week Comments Never 0 (1 standard drink = 0.6 oz pur e alcohol) Caffeine intake: coffee PHQ-2 Answer Date Recorded Patient Health Questionnaire-2 Score 0 10/25/2024 Comments Unknown Sex and Gender Information Value Date Recorded Sex Assigned at Not on file Legal Sex Female 6:59 PM EDT Gender Identity Not on file Sexual Orientation Not on file documented as of this encounter Last Filed Vital Signs Vital Sign Reading Time Taken Comments Blood Pressure 129/75 11/09/2024 1:06 PM EDT Pulse 77 11/09/2024 1:06 PM EDT Temperature - - Respiratory Rate - - Oxygen Saturation - - Inhaled Oxygen Concentration - - Weight 103 kg (228 lb) 11/09/2024 1:06 PM EDT Height 167.6 cm (5' 6 ) 11/09/2024 1:06 PM EDT Body Mass Index 36.8 11/09/2024 1:06 PM EDT documented in this encounter Progress Notes * Yaniv Jarrett DPM FAC[facility]AS - 11/09/2024 1:10 PM EDT Images from the original note were not included. patient: Oriana Martin : 1940 PCP: Miguel Ray MD SUBJECTIVE This is a 84 y.o. female diabetic patient presents today chief complaint of painful elongated nailsdigits 1 through 10 the cause marked limitation in ambulation due to pain and pressure from shoe gear. The patient states he has been attempting to control his blood glucose levels with regular visits to his primary care physician. 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) 06/27/2019 Family history of rheumatoid arthritis 08/02/2012 Fatigue 08/02/2012 Fatty food intolerance 08/10/2018 GERD (gastroesophageal reflux disease) 01/25/2017 Bilateral hand swelling 02/13/2015 Hand pain 08/02/2012 History of total right knee replacement 03/01/2017 S/P revision of total knee 01/25/2017 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 Irritable bowel syndrome with diarrhea 02/03/2021 Long-term use of Plaquenil 07/22/2016 LVH (left ventricular hypertrophy) 10/03/2022 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 associated with type 2diabetes mellitus (HCC) 10/03/2022 Mixed hyperlipidemia 06/27/2015 Hip pain, bilateral 07/22/2016 Multiple joint pain 08/02/2012 Nonrheumatic aortic valve stenosis 10/05/2019 Morbid (severe) obesity due to excess calories ([facility]-HCC) 08/30/2019 Onychomycosis due to dermatophyte 08/30/2019 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 10/03/2022 Chronic bilateral low back pain with bilateral sciatica 07/22/2016 Other chronic pain 10/03/2022 Polyneuropathy associated with underlying disease (HCC) 06/27/2015 Personal history of (healed) other pathological fracture 10/26/2013 Erosive osteoarthritis of multiple sites 07/22/2016 Osteoarthritis 01/28/2015 Primary osteoarthritis involving multiple joints 10/03/2022 Proteinuria 10/03/2022 Sciatica 10/03/2022 Sinusitis 10/03/2022 Vitamin D deficiency 01/25/2013 Bilateral carotid bruits 06/17/2023 Elevated blood pressure reading without diagnosis of hypertension 06/17/2023 Never smoked tobacco 06/17/2023 BMI 33.0-33.9,adult 07/07/2023 History of gastric bypass 08/05/2023 Encounter to discuss test results 11/10/2023 Arteriosclerosis of both carotid arteries 06/30/2024 Resolved Ambulatory Problems Diagnosis Date Noted 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) 08/30/2019 Diabetes mellitus (HCC) 01/25/2017 DM w/o complication type II ([facility]) 10/03/2022 Type 2 diabetes mellitus without complication ([facility]) 01/28/2015 Obesity (BMI 30.0-34.9) 01/25/2017 Past Medical History: Diagnosis Date Arthritis 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) Obesity Onychomycosis Medications: Current Outpatient Medications: Accu-Chek Guide test strip, 1 each by Other route in the morning., Disp: , Rfl: Accu-Chek Softclix Lancets lancets, TEST BLOOD SUGAR EVERY DAY DIRECTED, Disp: 100 each, Rfl: 3 Alcohol Swabs (DropSafe Alcohol Prep) 70 % pads, USE DIRECTED EVERY DAY, Disp: 100 each, Rfl: 3 aspirin 81 MG EC tablet, Take 2 tablets (162 mg) by mouth Daily, Disp: 200 tablet, Rfl: 0 atorvastatin (Lipitor) 40 MG tablet, Take 40 mg by mouth at bedtime., Disp: , Rfl: calcium citrate (Calcitrate) 950 (200 Ca) MG tablet, TAKE 1 TABLET BY MOUTH EVERY DAY, Disp: 100 tablet, Rfl: 3 cholecalciferol (Vitamin D-3) 50 MCG (2000 UT) tablet, TAKE 1 TABLET BY MOUTH EVERY DAY, Disp: 100 tablet, Rfl: 1 diclofenac sodium 3 % gel, Apply 0.5 g topically in the morning and 0.5 g before bedtime., Disp: 200 g, Rfl: 2 gabapentin (Neurontin) 300 MG capsule, Take 1 capsule (300 mg) by mouth in the morning and 1 capsule (300 mg) before bedtime., Disp: 180 capsule, Rfl: 3 glimepiride (Amaryl) 2 MG tablet, TAKE 1 TABLET BY MOUTH IN THE MORNING BEFORE MEAL, Disp: 100 tablet, Rfl: 3 linaGLIPtin (Tradjenta) 5 MG tablet, Take 1 tablet (5 mg) by mouth Daily, Disp: 100 tablet, Rfl: 3 Magnesium Glycinate 665 MG capsule, as directed Orally, Disp: , Rfl: Review of systems: Constitutional: Denies fever, chills, nausea, vomiting GI: Denies abdominal pain, cramping, loose stool, gastric ulcers Musculoskeletal: Denies low back pain, knee pain, systemic arthritis Neurologic: Denies burning, tingling, transient paralysis OBJECTIVE Physical Examination: DERM: Positive hair growth to b/l feet with good skin turgor noted. Negative openings in skin. No macerations noted interdigitally. Web spaces were clean and dry. No ulcerations were noted. Nails 1 through 10 were thickened elongated yellow and crumbly with subungual debris. They were painful to palpation [id number] on the right [id number] on the left. VASC: DP /PT were nonpalpable bilateral. Capillary refill time < 3 seconds Digits 1-5 bilateral NEURO: Ashley Crystal 5.07 monofilament was diminished B/L. Vibratory sensation was diminished b/l. Mild peripheral neuropathy noted in a stocking- glove orientation Musculoskeletal: Muscle strength was +5 over 5 all intrinsic and extrinsic muscles tested. Radiographs: AP/MO/LAT: Diagnostic ultrasound: ASSESSMENT 1. Onychomycosis 2. Type II diabetes mellitus with neurological manifestations (HCC) 3. Pain in right toe(s) 4. Pain in left toe(s) PLAN The patient was educated on proper diabetic foot care. There educated on the etiology of onychomycosis. Also educated on performing regular inspections of the feet. We discussed routine visits to herprimary care physician to monitor the glucose levels as well. Today the nails were debrided both inlength and thickness 1 through 10. Patient was educated on the increased risk for foot complications due to neuropathy, poor circulation, and delayed wound healing. Proper foot care is essential to prevent ulcers, infections, and potential amputations. The following recommendation given to the patient guarding diabetic foot care: 1. Daily Foot Inspection Check for cuts, sores, blisters, redness, swelling, or signs of infection. Use a mirror or seek assistance if unable to see the bottom of the feet. 2. Hygiene Wash feet daily with warm (not hot) water and mild soap. Dry thoroughly, especially between toes, to prevent fungal infections. 3. Moisturizing Apply moisturizer to prevent dryness and cracking, avoiding areas between toes. 4. Nail Care Patients should have their nails trimmed only by a fishery division chief to reduce the risk of injury or complications. 5. Footwear Wear well-fitting, cushioned shoes that protect feet from injury. Avoid walking barefoot, even indoors. 6. Blood Sugar Control Maintain optimal blood sugar levels to promote circulation and healing. 7. Regular Monitoring by a Healthcare Provider Schedule regular foot exams by a provider to detect early signs of complications. Report any new foot issues immediately for timely intervention. RENE Jorge documented in this encounter Plan of Treatment Upcoming Encounters Date Type Department Care Team (Late st Contact Info) Description 01/18/2025 1:50 PM EDT Office Visit [facility] [address] [place] [address] Yaniv Jarrett DPM [facility] [address] [place] [address] 02/26/2025 9:30 AM EST Office Visit [facility] [address] [facility] [address] [place] [address] Miguel Ray MD [address] [address] documented as of this encounter Visit Diagnoses Diagnosis Onychomycosis- Primary Dermatophytosis of nail Type II diabetes mellitus with neurological manifestations (HCC) Type II or unspecified type diabetes mellitus with neurological manifestations, not stated as uncontrolled Pain in right toe(s) Pain in left toe(s) documented in this encounter Additional Health Concerns Assessment Noted Time PHQ-9 Depression Total Score: 1 09/30/19 24 10:00 AM EDT documented as of this encounter Care Teams Hog Operator Relationship Specialty Start Date End Date Miguel Ray MD [address] [place] [address] PCP - [employer] 04/12/22 Miguel Ray MD [address] [place] [address] PCP - General Internal Medicine 09/08/22 documented as of this encounter
--- OUTSIDE RECORDS SUMMARY | 2024-11-10 09:15 | XMS_ITS | Encounter Summary ---
Author Organization [facility] Address [address] [place] [address] Phone Care Team Providers Care Recovery Auditor Name Role Phone Miguel Ray MD Primary Care Provider [phone] Reason for Referral * CV Imaging (Routine) - Pending Review Specialty Diagnoses / Procedures Referred By Contac t Referred To Contact Cardiology Diagnoses Nonrheumatic aortic valve stenosis Mitral valve stenosis and aortic valve stenosis Procedures Transthoracic Echo Complete NH ECHO TTHRC R-T 2D W/WOM-MODE COMPL SPEC&COLR D Jaleesa Cai MD [address] [place] [address] Phone: tel: fax: Referral ID Status Reason Start Date Expiration Date Visits Requested Visits Authorized [id number] Pending Review Perform Procedure 11/10/2024 11/10/2025 1 1 * Consultation (Routine) - Authorized Specialty Diagnoses / Procedures Referred By Contac t Referred To Contact Cardiology Diagnoses Nonrheumatic aortic valve stenosis Procedures Follow Up In Cardiology Jaleesa Cai MD [address] [place] [address] Phone: tel: fax: Jaleesa Cai MD [address] [place] [address] Phone: tel: fax: Referral ID Status Reason Start Date Expiration Date V isits Requested Visits Authorized [id number] Authorized 11/10/2024 11/10/2025 1 1 Reason for Visit * Reason Comments Follow-up 1yr follow up aortic valve stenosis * Consultation (Routine) - Authorized Specialty Diagnoses / Procedures Referred By Contac t Referred To Contact Cardiology Diagnoses Mitral valve stenosis and aortic valve stenosis Procedures Follow Up In Cardiology Jaleesa Cai MD [address] [address] Phone: tel: fax: Jaleesa aCi MD [address] [address] Phone: tel: fax: Referral ID Status Reason Start Date Expiration Date V isits Requested Visits Authorized [id number] Authorized 11/08/2023 11/07/2024 1 1 Encounter Details Date Type Department Care Team (Late st Contact Info) Description 11/10/2024 9:15 AM EDT Office Visit [address] [phone] Jaleesa Cai MD [address] [phone] Nonrheumatic aortic valve stenosis; Mitral valve stenosis and aortic valve stenosis; Mixed hyperlipidemia; Primary hypertension; Diabetes mellitus type II, non insulin dependent (Multi); Never smoked tobacco; BMI 38.0-38.9,adult Social History Tobacco Use Types Packs/Day Years [...] Sign Reading Time Taken Comments Blood Pressure 132/66 11/10/2024 9:15 AM EDT Pulse 64 11/10/2024 9:15 AM EDT Temperature - - Respiratory Rate - - Oxygen Saturation - - Inhaled Oxygen Concentration - - Weight 105 kg (231 lb) 11/10/2024 9:15 AM EDT Height 165.1 cm (5' 5 ) 11/10/2024 9:15 AM EDT Body Mass Index 38.44 11/10/2024 9:15 AM EDT documented in this encounter Patient Instructions * Patient Instructions* Aneta Nguyen LPN - 11/10/2024 9:15 AM EDT Please bring all medicines, vitamins, and herbal supplements with you when you come to the office. Prescriptions will not be filled unless you are compliant with your follow up appointments or have a follow up appointment scheduled as per instruction of your physician. Refills should be requested at the time of your visit. BMI was above normal measurement. Current weight: 105 kg (231 lb) Weight change since last visit (-) denotes wt loss 6 lbs Weight loss needed to achieve BMI 25: 81.1 Lbs Weight loss needed to achieve BMI 30: 51.1 Lbs Provided instructions on dietary changes. * Attachments The following attachments cannot be sent through Care Everywhere. * Heart Healthy Diet (Greek) documented in this encounter Progress Notes * Jaleesa Cai MD - 11/10/2024 9:15 AM EDT Images from the original note were not included. Chief Complaint: Chief Complaint Patient presents with Follow-up 1yr follow up aortic valve stenosis Most recently seen in May 2024. 84-year-old with cerebrovascular disease primary hypertension type 2 diabetes peripheral neuropathyage-related macular degeneration, nonrheumatic aortic valve stenosis, presents for 6-month follow-up. She underwent left carotid endarterectomy without untoward effects Subjective : Interval review of systems is negative for chest discomfort pressure tightness heaviness palpitations lightheadedness orthopnea paroxysmal nocturnal dyspnea dependent edema or claudication TIA or CVA type symptoms or bleeding diathesis Review of Systems 12 point review of systems is otherwise negative or noncontributory History so Far : 1. Primary hypertension 2. Type 2 diabetes with peripheral neuropathy 3. Age-related macular degeneration 4. Nonrheumatic aortic valve stenosis 5. GERD 6. Degenerative joint disease 7. Increased BMI 8. Echocardiogram October 2022-LVEF greater than 55% aortic valve area 1.1 cm? moderate calcific aortic stenosis no aortic regurgitation, no pericardial effusion, LV end-systolic dimension 3.17 cm LVwall thickness 0.9 cm left atrial volume index 30 mm/m? peak and mean gradient across aortic valve 28 and 17 respectively, RV systolic pressure 40 mmHg 9. Echocardiogram October 2023-LVEF 60 to 65% increased septal wall thickness normal RV size and systolic function moderate aortic stenosis dimensionless index 0.33 trivial aortic regurgitation peak andmean gradients 37 and 20 respectively trace mitral regurgitation mild tricuspid regurgitation no per icardial effusion impaired relaxation pattern of LV diastolic filling. Left atrial diameter 3.7 cm LV end-systolic diameter 3.2 cm aortic valve area 1.1 cm. 10. Carotid ultrasound December 2022-50 to 69% right proximal internal carotid artery stenosis 50 to 69% left proximal internal carotid artery stenosis bilateral antegrade vertebral flow peak velocity 179/26 on the right 230/47 on the left 11. 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 Cervical CT angiogram April 2024-moderate to severe heterogenous mixed plaque both carotid bifurcations 65 to 75% right proximal internal carotid artery stenosis 50% proximal left internal carotid artery stenosis up to 50% narrowing ostium of the left vertebral artery left vertebral artery hypoplastic dominant right vertebral artery with 50% ostial narrowing 13. Status post left carotid endarterectomy by Dr. Mcgill. 14. Carotid ultrasound September 2024-mild to moderate plaque formation is noted bilateral extracranial carotid arteries. 50 to 69% stenosis right internal carotid artery left carotid system normal Objective Wt Readings from Last 3 Encounters: 11/10/24 105 kg (231 lb) 05/22/24 102 kg (225 lb) 11/08/23 95.4 kg (210 lb 6.4 oz) Vitals: 11/10/24 0915 BP: 132/66 BP Location: Left arm Patient Position: Sitting Pulse: 64 Weight: 105 kg (231 lb) Height: 1.651 m (5' 5 ) Physical Exam: Awake alert oriented and pleasant Right carotid bruit, well-healed left carotid endarterectomy scar Grade 2/6 to 3/6 crescendo decrescendo murmur left sternal border Lungs clear to desponded DJD both knees status post knee replacement surgery No peripheral edema Meds: Current Outpatient Medications Medication Instructions aspirin 162 mg, Daily atorvastatin (LIPITOR) 40 mg, oral, Daily calcium amino acid chelate 200 mg, Daily cholecalciferol (VITAMIN D3) 50 mcg, Daily gabapentin (NEURONTIN) 300 mg, Nightly glimepiride (AMARYL) 2 mg, Daily before breakfast magnesium glycinate 100 mg tablet 1 tablet, Daily Tradjenta 5 mg, Daily Allergies: Penicillins LABS: Testing Reviewed Labs CMP: Lab Results Component Value Date NA 138 11/06/2024 K 4.8 11/06/2024 CL 105 11/06/2024 CO2 20 11/06/2024 BUN 25 11/06/2024 CREATININE 0.93 11/06/2024 GLUCOSE 93 11/06/2024 CALCIUM 9.0 11/06/2024 Lipid Profile: Lab Results Component Value Date CHOL 111 11/06/2024 TRIG 56 11/06/2024 HDL 66 11/06/2024 LDLCALC 31 11/06/2024 Reviewed all available pertinent laboratory data and diagnostic testing results that occurred afterthe last office visit with me Assessment: 1. Nonrheumatic aortic valve stenosis Follow Up In Cardiology Transthoracic Echo Complete Comprehensive Metabolic Panel Comprehensive Metabolic Panel 2. Mitral valve stenosis and aortic valve stenosis Follow Up In Cardiology Transthoracic Echo Complete Comprehensive Metabolic Panel Comprehensive Metabolic Panel 3. Mixed hyperlipidemia atorvastatin (Lipitor) 40 mg tablet Lipid Panel Comprehensive Metabolic Panel Lipid Panel Comprehensive Metabolic Panel 4. Primary hypertension Comprehensive Metabolic Panel Comprehensive Metabolic Panel 5. Diabetes mellitus type II, non insulin dependent (Multi) 6. Never smoked tobacco 7. BMI 38.0-38.9,adult Clinical Decision Making: Blood pressure is adequately controlled Carotid surveillance is by vascular surgery Asymptomatic from aortic stenosis perspective Lipid profile is at target Follow up : 1 year Echocardiogram prior to next visit I, Aneta Rapp LPN am scribing for, and in the presence of Dr. Jaleesa Cai MD, FACC. I, Dr. Jaleesa Cai MD, FACC, personally performed the services described in the documentation as scribed by Aneta G. TRACK MANAGER in my presence, and confirm it is both accurate and complete. documented in this encounter Plan of Treatment Upcoming Encounters Date Type Department Care Team (Late st Contact Info) Description 12/12/2024 8:45 AM EDT Appointment [place] [id number] [facility] [address] [place] [phone] 11/12/2025 9:00 AM EDT Office Visit [place] [address] [facility] [address] [place] [phone] Jaleesa Cai MD [address] [facility] [address] [place] [address] Scheduled Orders Name Type Priority Associated Diagnoses Orde r Schedule Transthoracic Echo Complete Echocardiography Routine Nonrheumatic aortic valve stenosis Mitral valve stenosis and aortic valve stenosis Expected: 11/10/2024 (Approximate), Expires: 11/10/2026 Lipid Panel Lab Routine Mixed hyperlipidemia Expected: 11/10/2024, Expires: 11/10/2025 Comprehensive Metabolic Panel Lab Routine Nonrheumatic aortic valve stenosis Mitral valve stenosis and aortic valve stenosis Mixed hyperlipidemia Primary hypertension Expected: 11/10/2024, Expires: 11/10/2025 documented as of this encounter Visit Diagnoses Diagnosis Nonrheumatic aortic valve stenosis Mitral valve stenosis and aortic valve stenosis Mixed hyperlipidemia Primary hypertension Unspecified essential hypertension Diabetes mellitus type II, non insulin dependent (Multi) Type II or unspecified type diabetes mellitus without mention of complication, not stated as uncontrolled Never smoked tobacco BMI 38.0-38.9,adult documented in this encounter Additional Health Concerns Assessment Noted Time A fall risk assessment has been complete d for the patient 11/10/2024 9:14 AM EDT documented as of this encounter Care Teams Recovery Auditor Relationship Specialty Start Date End Date Miguel Ray MD [address] [place] [address] [address] [place] [address] PCP - General 11/04/22 documented as of this encounter
--- OUTSIDE RECORDS SUMMARY | 2024-11-16 08:29 | XMS_ITS | Encounter Summary ---
Author Organization [facility] Address [address] [facility] [place] [address] Care Team Providers Care Cop Examiner Name Role Phone Miguel Ray MD Unavailable [phone] Miguel Ray MD Primary Care Provider [phone] Encounter Details Date Type Department Care Team (Late Contact Info) Description 07/08/2023 Abstract [facility] [place] [facility] 112 [facility] 110 [place] [phone] Miguel Ray MD 112 [place] [facility] 110 [place], [place] [phone] Social History Tobacco Use Types Packs/Day Years [...] Department Care Team (Late Contact Info) Description 01/18/2025 1:50 PM EDT Office Visit [facility] [address] [place] [address] Yaniv Jarrett, DPM FACFAS 368 [facility] [place] [address] 02/26/2025 9:30 AM EST Office Visit [facility] [place] [facility] [address] [facility] [address] [place] [address] Miguel Ray MD [address] [facility] 110 [place] [address] documented as of this encounter Visit Diagnoses Not on filedocumented in this encounter Care Teams Cop Examiner Relationship Specialty Start Date End Date Miguel Ray MD [address] [facility] 110 [place] [address] PCP - [employer] 04/12/22 Miguel Ray MD [address] [facility] [address] [place] [address] PCP - General Internal Medicine 09/08/22 documented as of this encounter
--- OUTSIDE RECORDS SUMMARY | 2024-11-16 08:29 | XMS_ITS | Encounter Summary ---
Author Organization [facility] Address [address] [facility] [place] [address] Care Team Providers Care Gut Cleaner Name Role Phone Miguel Ray MD Unavailable [phone] Miguel Ray MD Primary Care Provider Encounter Details Date Type Department Care Team (Late Contact Info) Description 06/17/2023 Abstract [facility] [place] [facility] 112 [facility] 110 [place] [phone] Miguel Ray MD [address] [facility] 110 [place], [place] [phone] Social History Tobacco Use Types Packs/Day Years [...] EDT Office Visit [facility] [address] [place] [address] Yaniv Jarrett, DPM FACFAS [address] [facility] [place] [address] 02/26/2025 9:30 AM EST Office Visit [facility] [place] [facility] [address] [facility] [address] [place] [address] Miguel Ray MD [address] [facility] 110 [place] [address] documented as of this encounter Visit Diagnoses Not on filedocumented in this encounter Care Teams Gut Cleaner Relationship Specialty Start Date End Date Miguel Ray MD [address] [facility] 110 [place] [address] PCP - [employer] 04/12/22 Miguel Ray MD [address] [facility] 110 [place] [address] PCP - General Internal Medicine 09/08/22 documented as of this encounter
--- NOTE | 2024-11-16 08:30 | PM.CN ---
Consult Note: HPI Data of Consult Patient: known to practice within the last 3 years Requesting Physician: Rosenda Israel NP Primary Care Provider: LUPE RUFFIN Consult Narrative Reason for consult: back pain Narrative: Oriana Martin a pleasant 84 year old female presents for evaluation of chronic low back pain >3 years with worsening low back pain over the last 5 months. Pt has failed to benefit from > 6 weeks of provider guided HEP, heat, ice, tylenol, cannot take NSAIDs due to GERD. denies falls or injury. pain 3/10 increasing to 5-6/10 with standing, walking, sitting, housework, lifting. Pain mildly improved with lying down. currently utilizing tylenol, gabapentin, and magnesium with mild relief. recently underwent left L4-5 L5-S1 TFESI with 100% improvement in NC per pt. continues to endorse midline and bilateral low back pain. cc:: CC: Rosenda Israel NP [facility] Medical History (Updated 09/27/24 @ 14:33 by Jamee Canales RN) Rheumatoid arthritis ?M06.9 - Rheumatoid arthritis, unspecified (ICD-10) Diabetes ?E11.9 - Type 2 diabetes mellitus without complications (ICD-10) Kidney stone ?N20.0 - Calculus of kidney (ICD-10) Cirrhosis of liver ?K74.60 - Unspecified cirrhosis of liver (ICD-10) Pacemaker ?Z95.0 - Presence of cardiac pacemaker (ICD-10) High cholesterol ?E78.00 - Pure hypercholesterolemia, unspecified (ICD-10) Heart valve problem ?I38 - Endocarditis, valve unspecified (ICD-10) Surgical History (Updated 09/27/24 @ 14:33 by Jamee Canales RN) History of heart surgery ?Z98.890 - Other specified postprocedural states (ICD-10) History of knee replacement ?Z96.659 - Presence of unspecified artificial knee joint (ICD-10) Hx of cholecystectomy ?Z90.49 - Acquired absence of other specified parts of digestive tract (ICD-10) H/O bariatric surgery ?Z98.84 - Bariatric surgery status (ICD-10) History of back surgery ?Z98.890 - Other specified postprocedural states (ICD-10) Meds Home Medications and Allergies Home Medications ?Medication ?Instructions ?Recorded ?Confirmed ?Type aspirin 81 mg tablet 81 mg PO DAILY 09/27/24 09/27/24 History atorvastatin 40 mg tablet 40 mg PO DAILY 09/27/24 09/27/24 History calcium citrate 200 mg PO DAILY 09/27/24 09/27/24 History cholecalciferol (vitamin D3) 50 2,000 unit PO DAILY 09/27/24 09/27/24 History mcg (2,000 unit) capsule gabapentin 300 mg capsule 300 mg PO DAILY 09/27/24 09/27/24 History glimepiride 2 mg tablet 2 mg PO DAILY 09/27/24 09/27/24 History linagliptin 5 mg tablet (Tradjenta) 5 mg PO DAILY 09/27/24 09/27/24 History lisinopril 2.5 mg tablet 2.5 mg PO DAILY 09/27/24 09/27/24 History magnesium glycinate 100 mg (as 100 mg PO DAILY 09/27/24 09/27/24 History glycinate) tablet (Mag Glycinate) Allergies Allergy/AdvReac Type Severity Reaction Status Date / Time Penicillins Allergy Hives Verified 09/27/24 14:29 Exam Constitutional Documenting provider has reviewed patient's vital signs: yes Common normals: no apparent distress, oriented x3, healthy appearing, alert and well nourished General appearance: cooperative HENNY Common normals: normocephalic, hearing grossly normal bilaterally and moist oral mucous membranes Head and scalp: normocephalic Eye Common normals: PERRL Pupil: PERRL Neck & C-Spine Common normals: full ROM General: normal visual inspection Chest Common normals: inspection of chest normal Respiratory Common normals: normal respiratory effort, no retractions and no use of accessory muscles Back & Pelvis Lumbar spine/lower back: ROM limited, pain with ROM, lumbar spinal tenderness Lumbar spinal tenderness location: L3, L4 and L5 and straight leg raise negative bilaterally Sacroiliac joints: SI joint(s) abnormal Other: sensation intact BLE strength 5/5 in BLE left> right sij positive berlin(patricks), gaenslens, thigh thrust, compression test Extremity Common normals: normal to inspection and full ROM Neuro Common normals: oriented x3 Sensorium/orientation: alert Psych Common normals: mental status grossly normal, thought process normal, cooperative, affect normal, speech normal and activity/motor behavior normal Speech: normal speech Thought process: normal thought process Results Additional Findings Additional findings: If on a controlled substance or opioids, I have checked an [place]AR[place] report on this patient and there are no aberrancies noted in the prescribing history.??If on a controlled substance or opioid a drug screen was completed and reviewed within the last year, and if there has not been a drug screen completed we ordered one today to monitor higher risk, state monitored pain medication use. As part of providing excellent, safe, comprehensive care, the following was completed at our patient's visit: 1. A medication reconciliation and review to ensure accurate knowledge of current/active medications, including asking our patients to inform us about any uszw-fje-opotnyq medications or herbal remedies/nutritional supplements/alternative remedies. 2. A review to specifically ensure our patients have had annual screening for screening for depression, screening for tobacco use, and screening for unhealthy alcohol use. For concerning screenings had a discussion with the patient, provided patient education, and recommended follow-up with primary care provider when appropriate. If patient noted with a risk of falling, they received education on strength, gait, and balance training to prevent future risk of falling. Portions of this note may have been carried over from the previous visit and updated as appropriate. Please note this office utilizes paper charting in addition to the electronic medical record. A list of current medications, vitals, and PMH is available there as the clinical staff outside of myself do not have access to [employer] charting during the clinic day operations. As part of providing quality comprehensive care the current medications, vitals, and PMH were reviewed in the paper chart. Assessment and Plan Assessment and Plan (1) Lumbar spondylosis: Assessment and Plan: The patient has had over 3 months of moderate to severe low back pain with functional impairment and inadequate response to conservative care including NSAIDS (unless there are contraindication such as concurrent blood thinners), multiple oral or topical pain medications, and home exercise program/physical therapy.? Patient has completed >6 weeks of guided home exercise program and/or formal physical therapy program without relief of their symptoms.? The Oswestry Disability Index was completed, and the patient scored a 24%.? moderate to severe pain with ADLs, standing, walking, lifting, twisting We discussed the risks and benefits of the procedure with the patient, and we are NOT planning on using sedation as outlined in the guidelines from Medicare unless there is a documented reason that sedation would be strongly recommended.?? ?The procedure will be completed with fluoroscopic guidance.? (2) Sacroiliitis: (3) Lumbar stenosis with neurogenic claudication: Assessment and Plan: 10/02/24 left L4-5 L5-S1 TFESI >80% improvement in NC Plan bilateral L4-5 L5-S1 facet medial branch block x2 in consideration of RFA for facet mediated low back pain continue HEP as tolerated continue current medications f/u after each nerve block
--- OUTSIDE RECORDS SUMMARY | 2024-11-16 08:30 | XMS_ITS | Encounter Summary ---
Author Organization [facility] Address [address] [place] [place] [address] Care Team Providers Care Copyholder Name Role Phone Miguel Ray MD Unavailable [phone] Miguel Ray MD Primary Care Provider [phone] Encounter Details Date Type Department Care Team (Late Contact Info) Description 06/28/2024 Abstract [facility] [place] [facility] 112 [facility] 110 [place] [phone] Miguel Ray MD [address] [place] [facility] 110 [place], [place] [phone] Social History Tobacco Use Types Packs/Day Years [...] EDT Office Visit [facility] [address] [place] [address] Yaniv Jarrett, DPM FACFAS [address] [facility] [place] [address] 02/26/2025 9:30 AM EST Office Visit [facility] [place] [facility] [address] [facility] 110 [place] [address] Miguel Ray MD [address] [facility] 110 [place] [address] documented as of this encounter Visit Diagnoses Not on filedocumented in this encounter Additional Health Concerns Assessment Noted Time PHQ-9 Depression Total Score: 1 09/30/19 24 10:00 AM EDT documented as of this encounter Care Teams Copyholder Relationship Specialty Start Date End Date Miguel Ray MD [address] [facility] 110 [place] [address] PCP - [employer] 04/12/22 Miguel Ray MD [address] [facility] 110 [place] [address] PCP - General Internal Medicine 09/08/22 documented as of this encounter
--- OUTSIDE RECORDS SUMMARY | 2024-11-16 08:30 | XMS_ITS | Encounter Summary ---
Author Organization [facility] Address [address] [place] [address] Care Team Providers Care Acds Block 1 Operator Name Role Phone Miguel Ray MD Unavailable Miguel Ray MD Primary Care Provider [phone] Encounter Details Date Type Department Care Team (Late Contact Info) Description 05/17/2024 Abstract [facility] [place] [facility] 112 [facility] 110 [place] [phone] Miguel Ray MD 112 [facility] 110 [place], [place] [phone] Social History Tobacco Use Types Packs/Day Years [...] EDT Office Visit [facility] [address] [place] [address] Yaniv Jarrett, DPM FACFAS 368 [facility] [place] [address] 02/26/2025 9:30 AM EST Office Visit [facility] [place] [facility] [address] [facility] 110 [place] [address] Miguel Ray MD [address] [facility] 110 [place] [address] documented as of this encounter Visit Diagnoses Not on filedocumented in this encounter Additional Health Concerns Assessment Noted Time PHQ-9 Depression Total Score: 1 09/30/19 24 10:00 AM EDT documented as of this encounter Care Teams Acds Block 1 Operator Relationship Specialty Start Date End Date Miguel Ray MD [address] [facility] 110 [place] [address] PCP - [employer] 04/12/22 Miguel Ray MD [address] [facility] 110 [place] [address] PCP - General Internal Medicine 09/08/22 documented as of this encounter
--- OUTSIDE RECORDS SUMMARY | 2024-11-16 08:30 | XMS_ITS | Encounter Summary ---
Author Organization [facility] Address [address] [address] Phone Care Team Providers Care Wallpaper Printer Helper Name Role Phone Miguel Ray MD Primary Care Provider [phone] Encounter Details Date Type Department Care Team (Late Contact Info) Description 11/06/2024 Orders Only [facility] [address] [place] [phone] Jaleesa Cai MD [address] [address] Social History Tobacco Use Types Packs/Day Years [...] Info) Description 12/12/2024 8:45 AM EDT Appointment [place] [address] [place] [phone] 11/12/2025 9:00 AM EDT Office Visit [address] [phone] Jaleesa Cai MD 917 [facility] 130 [place] [address] documented as of this encounter Procedures Procedure Name Priority Date/Time Associated Diagnosis Comments [facility] COMPREHENSIVE METABOLIC PANEL Routine 11/06/2024 9:32 AM EDT LIPID PANEL Routine 11/06/2024 9:32 AM EDT documented in this encounter Results * [facility] COMPREHENSIVE METABOLIC PANEL (11/06/2024 9:32 AM EDT) GLUCOSE 93 65 - 99 mg/dL [facility] Comment: Fasting reference interval UREA NITROGEN (BUN) 25 7 - 25 mg/dL [facility] CREATININE 0.93 0.60 - 0.95 mg/dL [facility] EGFR 61 > OR = 60 mL/min/1. 73m2 [facility] BUN/CREATININE RATIO SEE NOTE: (calc) [facility] Comment: Not Reported: BUN and Creatinine are within reference range. SODIUM 138 135 - 146 mmol/L [facility] POTASSIUM 4.8 3.5 - 5.3 mmol/L [facility] CHLORIDE 105 98 - 110 mmol/L [facility] CARBON DIOXIDE 20 20 - 32 mmol/L [facility] CALCIUM 9.0 8.6 - 10.4 mg/dL [facility] PROTEIN, TOTAL 6.5 6.1 - 8.1 g/dL [facility] ALBUMIN 3.9 3.6 - 5.1 g/dL [facility] GLOBULIN 2.6 1.9 - 3.7 g/dL (calc) [facility] ALBUMIN/GLOBULI N RATIO 1.5 1.0 - 2.5 (calc) [facility] BILIRUBIN, TOTAL 0.4 0.2 - 1.2 mg/dL [facility] ALKALINE PHOSPHATASE 93 37 - 153 U/L [facility] AST 23 10 - 35 U/L [facility] ALT 20 6 - 29 U/L [facility] 11/06/2024 9:32 AM EDT 11/06/2024 9:33 AM EDT [facility] - 11/07/2024 12:25 PM EDT FASTING:YES FASTING: YES us Jaleesa Cai MD LAB BLOOD ORDERABLES Final Resul t Performing Organization Address City/[facility]/ZIP Co de Phone Number [facility] [address] [facility], [address] [place] [address] * Lipid Panel (11/06/2024 9:32 AM EDT) CHOLESTEROL, TOTAL 111 <200 mg/dL [facility] HDL CHOLESTEROL 66 > OR = 50 mg/dL [facility] TRIGLYCERIDES 56 <150 mg/dL [facility] LDL-CHOLESTEROL 31 mg/dL (calc) [facility] Comment: Reference range: <100 Desirable range <100 mg/dL for primary prevention; <70 mg/dL for patients with CHD or diabetic patients with > or = 2 CHD risk factors. LDL-C is now calculated using the Parker-Pat calculation, which is a validated novel method providing better accuracy than the Friedewald equation in the estimation of LDL-C. Parker SS et al. INDRA. 2013;310(19): 2417-9941 (http://education.[facility]/faq/PHM829) CHOL/HDLC RATIO 1.7 <5.0 (calc) [facility] NON HDL CHOLESTEROL 45 <130 mg/dL (calc) [facility] Comment: For patients with diabetes plus 1 major ASCVD risk factor, treating to a non-HDL-C goal of <100 mg/dL (LDL-C of <70 mg/dL) is considered a therapeutic option. 11/06/2024 9:32 AM EDT 11/06/2024 9:33 AM EDT [facility] - 11/07/2024 12:25 PM EDT FASTING:YES FASTING: YES us Jaleesa Cai MD LAB BLOOD ORDERABLES Final Resul t [facility] [address], [address] [place] [address] documented in this encounter Visit Diagnoses Not on filedocumented in this encounter Additional Health Concerns Assessment Noted Time A fall risk assessment has been complete d for the patient 05/22/2024 1:46 PM EST documented as of this encounter Care Teams Wallpaper Printer Helper Relationship Specialty Start Date End Date Miguel Ray MD [address] [address] PCP - General 11/04/22 documented as of this encounter
--- OUTSIDE RECORDS SUMMARY | 2024-11-16 08:30 | XMS_ITS | Encounter Summary ---
Author Organization [facility] Address [address] [facility] [place] [address] Care Team Providers Care Quality Control Industrial Engineer Name Role Phone Miguel Ray MD Unavailable [phone] Miguel Ray MD Primary Care Provider [phone] Encounter Details Date Type Department Care Team (Late Contact Info) Description 11/11/2023 Abstract [facility] [place] [facility] 112 [facility] 110 [place] [phone] Miguel Ray MD 112 [facility] 110 [place], [place] [phone] Social History Tobacco Use Types Packs/Day Years [...] EDT Office Visit [facility] [address] [place] [address] Yaniv Jarrett, DPM FACFAS [address] [facility] [place] [address] 02/26/2025 9:30 AM EST Office Visit [facility] [place] [facility] [address] [facility] 110 [place] [address] Miguel Ray MD [address] [facility] 110 [place] [address] documented as of this encounter Visit Diagnoses Not on filedocumented in this encounter Additional Health Concerns Assessment Noted Time PHQ-9 Depression Total Score: 1 09/30/19 24 10:00 AM EDT documented as of this encounter Care Teams Quality Control Industrial Engineer Relationship Specialty Start Date End Date Miguel Ray MD [address] [facility] 110 [place] [address] PCP - [employer] 04/12/22 Miguel Ray MD [address] [facility] 110 [place] [address] PCP - General Internal Medicine 09/08/22 documented as of this encounter
--- OUTSIDE RECORDS SUMMARY | 2024-11-16 08:30 | XMS_ITS | Encounter Summary ---
Author Organization [facility] Address [address] [place] [address] Phone Care Team Providers Care Field Crop Harvest Contractor Name Role Phone Miguel Ray MD Primary Care Provider [phone] Encounter Details Date Type Department Care Team (Late st Contact Info) Description 10/19/2022 Orders Only [facility] LE[facility] [address] [address] Conversion, Onbase Social History Tobacco Use Types [...] Info) Description 12/12/2024 8:45 AM EDT Appointment [address] [place] [phone] 11/12/2025 9:00 AM EDT Office Visit [address] 250 [place] [address] Jaleesa Cai MD [address] [facility] 130 [place], [place] [phone] Scheduled Orders Name Type Priority Associated Diagnoses Orde r Schedule OUTSIDE LAB SCAN Lab Ordered: 10/19/2022 documented as of this encounter Visit Diagnoses Not on filedocumented in this encounter Care Teams Field Crop Harvest Contractor Relationship Specialty Start Date End Date Miguel Ray MD [address] [place] [address] 110 [place] [address] PCP - General 11/04/22 documented as of this encounter
--- OUTSIDE RECORDS SUMMARY | 2024-11-16 08:30 | XMS_ITS | Encounter Summary ---
Author Organization [facility] Address [address] [facility] [place] [address] Care Team Providers Care Title I Coordinator Name Role Phone Miguel Ray MD Unavailable [phone] Miguel Ray MD Primary Care Provider [phone] Encounter Details Date Type Department Care Team (Late Contact Info) Description 05/22/2024 Abstract [facility] [place] [facility] 112 [facility] 110 [place] [phone] Miguel Ray MD 112 [facility] 110 [place], [place] [address] Social History Tobacco Use Types Packs/Day Years [...] EDT Office Visit [facility] [address] [place] [address] Yaniv Jarrett, DPM FACFAS [address] [facility] [place] [address] 02/26/2025 9:30 AM EST Office Visit [facility] [place] [facility] [address] [facility] 110 [place] [address] Miguel Ray MD [address] [facility] 110 [place] [address] documented as of this encounter Visit Diagnoses Not on filedocumented in this encounter Additional Health Concerns Assessment Noted Time PHQ-9 Depression Total Score: 1 09/30/19 24 10:00 AM EDT documented as of this encounter Care Teams Title I Coordinator Relationship Specialty Start Date End Date Miguel Ray MD [address] [facility] 110 [place] [address] PCP - [employer] 04/12/22 Miguel Ray MD [address] [facility] 110 [place] [address] PCP - General Internal Medicine 09/08/22 documented as of this encounter
--- OUTSIDE RECORDS SUMMARY | 2024-11-16 08:30 | XMS_ITS | Encounter Summary ---
Author Organization [facility] Address [address] [place] [address] Phone Care Team Providers Care Underground Production Foreperson Name Role Phone Miguel Ray MD Primary Care Provider [phone] Encounter Details Date Type Department Care Team (Late st Contact Info) Description 09/28/2024 Scanned Document [facility] [address] [place] [address] Scanning, Generic Provider Social History Tobacco Use [...] Info) Description 12/12/2024 8:45 AM EDT Appointment [address] [place] [address] 11/12/2025 9:00 AM EDT Office Visit [address] 250 [place] [address] Jaleesa Cai MD [address] [facility] 130 [place] [address] Scheduled Orders Name Type Priority Associated Diagnoses Orde r Schedule Ultrasound- OnBase Scan Imaging O rdered: 09/28/2024 documented as of this encounter Visit Diagnoses Not on filedocumented in this encounter Additional Health Concerns Assessment Noted Time A fall risk assessment has been complete d for the patient 05/22/2024 1:46 PM EST documented as of this encounter Care Teams Underground Production Foreperson Relationship Specialty Start Date End Date Miguel Ray MD 112 [facility] 110 [place] [address] PCP - General 11/04/22 documented as of this encounter
--- OUTSIDE RECORDS SUMMARY | 2024-11-16 08:30 | XMS_ITS | Encounter Summary ---
Author Organization [facility] Address [address] [place] [address] Phone Care Team Providers Care Delivery Merchandiser Name Role Phone Miguel Ray MD Primary Care Provider [phone] Encounter Details Date Type Department Care Team (Late st Contact Info) Description 12/22/2022 Scanned Document [facility] LEGACY [address] [place] [address] Conversion, Onbase Social History Tobacco Use Types [...] Info) Description 12/12/2024 8:45 AM EDT Appointment [address] [place] [address] 11/12/2025 9:00 AM EDT Office Visit [address] 250 [place] [address] Jaleesa Cai MD [address] [facility] 130 [place] [address] documented as of this encounter Procedures Procedure Name Priority Date/Time Associated Diagnosis Comments OUTSIDE IMAGING SCAN 12/22/2022 documented in this encounter Results * OUTSIDE IMAGING SCAN (12/22/2022) Anatomical Region Laterality Modality Other Narrative 12/22/2022 Ordered by an unspecified provider. us Onbase Conversion OUTSIDE SCAN Final Result documented in this encounter Visit Diagnoses Not on filedocumented in this encounter Care Teams Delivery Merchandiser Relationship Specialty Start Date End Date Miguel Ray MD 112 [place] [address] PCP - General 11/04/22 documented as of this encounter
--- OUTSIDE RECORDS SUMMARY | 2024-11-16 08:30 | XMS_ITS | Encounter Summary ---
Author Organization [facility] Address [address] [facility] [place] [address] Care Team Providers Care Grain Spouter Name Role Phone Miguel Ray MD Unavailable [phone] Miguel Ray MD Primary Care Provider [phone] Encounter Details Date Type Department Care Team (Late Contact Info) Description 05/19/2024 Abstract [facility] [place] [facility] 112 [facility] 110 [place] [address] Miguel Ray MD 112 [facility] 110 [place], [place] [phone] Social History Tobacco Use Types Packs/Day Years [...] EDT Office Visit [facility] [address] [place] [address] Yaniv Jarrett, DPM FACFAS 368 [facility] [place] [address] 02/26/2025 9:30 AM EST Office Visit [facility] [place] [facility] [address] [facility] 110 [place] [address] Miguel Ray MD [address] [facility] 110 [place] [address] documented as of this encounter Visit Diagnoses Not on filedocumented in this encounter Additional Health Concerns Assessment Noted Time PHQ-9 Depression Total Score: 1 09/30/19 24 10:00 AM EDT documented as of this encounter Care Teams Grain Spouter Relationship Specialty Start Date End Date Miguel Ray MD [address] [facility] 110 [place] [address] PCP - [employer] 04/12/22 Miguel Ray MD [address] [facility] 110 [place] [address] PCP - General Internal Medicine 09/08/22 documented as of this encounter
--- OUTSIDE RECORDS SUMMARY | 2024-11-16 08:30 | XMS_ITS | Encounter Summary ---
Author Organization [facility] Address [address] [place] [address] Phone Care Team Providers Care Physical Scientist Name Role Phone Miguel Ray MD Primary Care Provider [phone] Encounter Details Date Type Department Care Team (Late st Contact Info) Description 11/28/2022 Scanned Document [email or web address] LEGACY [address] [place] [address] Conversion, Onbase Social History Tobacco Use Types [...] Info) Description 12/12/2024 8:45 AM EDT Appointment [address] [place] [address] 11/12/2025 9:00 AM EDT Office Visit [address] 250 [place] [address] Jaleesa Cai MD [address] [facility] 130 [place] [address] documented as of this encounter Procedures Procedure Name Priority Date/Time Associated Diagnosis Comments ECHOCARDIOGRAM 11/28/2022 documented in this encounter Results * ECHOCARDIOGRAM (11/28/2022) Narrative 11/28/2022 Ordered by an unspecified provider. us Onbase Conversion CV ECHO PROCEDURES Final Resul t documented in this encounter Visit Diagnoses Not on filedocumented in this encounter Care Teams Physical Scientist Relationship Specialty Start Date End Date Miguel Ray MD 112 [place] [address] PCP - General 11/04/22 documented as of this encounter
--- OUTSIDE RECORDS SUMMARY | 2024-11-16 08:30 | XMS_ITS | Encounter Summary ---
Author Organization [facility] Address [address] [place] [address] Phone Care Team Providers Care Spring Inspector Name Role Phone Miguel Ray MD Primary Care Provider [phone] Encounter Details Date Type Department Care Team (Latest Contact Info) Description 11/10/2024 Travel Social History Tobacco Use Types Packs/Day Years [...] Info) Description 12/12/2024 8:45 AM EDT Appointment [address] [place] [address] [phone] 11/12/2025 9:00 AM EDT Office Visit [place] [address] [facility] 250 [place] [address] Jaleesa Cai MD [address] [facility] 130 [place] [address] documented as of this encounter Visit Diagnoses Not on filedocumented in this encounter Additional Health Concerns Assessment Noted Time A fall risk assessment has been complete d for the patient 11/10/2024 9:14 AM EDT documented as of this encounter Care Teams Spring Inspector Relationship Specialty Start Date End Date Miguel Ray MD 112 [facility] 110 [place] [address] PCP - General 11/04/22 documented as of this encounter
--- OUTSIDE RECORDS SUMMARY | 2024-11-16 08:30 | XMS_ITS | Encounter Summary ---
Author Organization [facility] Address [address] [place] [facility] [place] [address] Care Team Providers Care Pharmacist'S Aide Name Role Phone Miguel Ray MD Unavailable [phone] Miguel Ray MD Primary Care Provider [phone] Encounter Details Date Type Department Care Team (Late Contact Info) Description 01/25/2024 Abstract [facility] [place] [facility] 112 [facility] 110 [place] [address] Miguel Ray MD 112 [facility] 110 [place], [place] [address] Social History Tobacco Use Types Packs/Day Years [...] EDT Office Visit [facility] 368 [place] [address] Yaniv Jarrett, DPM FACFAS 368 [facility] [place] [address] 02/26/2025 9:30 AM EST Office Visit [facility] [place] [facility] [address] [facility] 110 [place] [address] Miguel Ray MD [address] [facility] 110 [place] [address] documented as of this encounter Visit Diagnoses Not on filedocumented in this encounter Additional Health Concerns Assessment Noted Time PHQ-9 Depression Total Score: 1 09/30/19 24 10:00 AM EDT documented as of this encounter Care Teams Pharmacist'S Aide Relationship Specialty Start Date End Date Miguel Ray MD [address] [facility] 110 [place] [address] PCP - [employer] 04/12/22 Miguel Ray MD [address] [facility] 110 [place] [address] PCP - General Internal Medicine 09/08/22 documented as of this encounter
--- OUTSIDE RECORDS SUMMARY | 2024-11-16 08:30 | XMS_ITS | Encounter Summary ---
Author Organization [facility] Address [address] [facility] [place] [address] Care Team Providers Care Test Facility Engineer Name Role Phone Miguel Ray MD Unavailable [phone] Miguel Ray MD Primary Care Provider [phone] Encounter Details Date Type Department Care Team (Late Contact Info) Description 05/30/2024 Abstract [facility] [place] [facility] 112 [facility] 110 [place] [address] Miguel Ray MD 112 [facility] 110 [place], [place] [address] Social History Tobacco Use Types Packs/Day Years [...] EDT Office Visit [facility] 368 [place] [address] Yaniv Jarrett, DPM FACFAS [address] [facility] [place] [address] 02/26/2025 9:30 AM EST Office Visit [facility] [place] [facility] [address] [facility] 110 [place] [address] Miguel Ray MD [address] [facility] 110 [place] [address] documented as of this encounter Visit Diagnoses Not on filedocumented in this encounter Additional Health Concerns Assessment Noted Time PHQ-9 Depression Total Score: 1 09/30/19 24 10:00 AM EDT documented as of this encounter Care Teams Test Facility Engineer Relationship Specialty Start Date End Date Miguel Ray MD [address] [facility] 110 [place] [address] PCP - [employer] 04/12/22 Miguel Ray MD [address] [facility] 110 [place] [address] PCP - General Internal Medicine 09/08/22 documented as of this encounter
--- OUTSIDE RECORDS SUMMARY | 2024-11-16 08:30 | XMS_ITS | Encounter Summary ---
Author Organization [facility] Address [address] [facility] [place] [address] Care Team Providers Care Jacquard Loom Carpet Weaver Name Role Phone Miguel Ray MD Unavailable [phone] Miguel Ray MD Primary Care Provider [phone] Encounter Details Date Type Department Care Team (Late Contact Info) Description 05/19/2024 Abstract [facility] [place] [facility] 112 [facility] 110 [place] [address] Miguel Ray MD 112 [facility] 110 [place], [place] [address] Social History Tobacco Use Types Packs/Day Years [...] EDT Office Visit [facility] 368 [place] [address] Yaniv Jarrett, DPM FACFAS 368 [facility] [place] [address] 02/26/2025 9:30 AM EST Office Visit [facility] [place] [facility] [address] [facility] 110 [place] [address] Miguel Ray MD [address] [facility] 110 [place] [address] documented as of this encounter Visit Diagnoses Not on filedocumented in this encounter Additional Health Concerns Assessment Noted Time PHQ-9 Depression Total Score: 1 09/30/19 24 10:00 AM EDT documented as of this encounter Care Teams Jacquard Loom Carpet Weaver Relationship Specialty Start Date End Date Miguel Ray MD [address] [facility] 110 [place] [address] PCP - [employer] 04/12/22 Miguel Ray MD [address] [facility] 110 [place] [address] PCP - General Internal Medicine 09/08/22 documented as of this encounter
--- OUTSIDE RECORDS SUMMARY | 2024-11-16 08:30 | XMS_ITS | Encounter Summary ---
Author Organization [facility] Address [address] [facility] [place] [address] Care Team Providers Care Measurement Psychologist Name Role Phone Miguel Ray MD Unavailable Miguel Ray MD Primary Care Provider [phone] Encounter Details Date Type Department Care Team (Late Contact Info) Description 11/09/2024 Bamboo flowsheet [facility] [address] [place] [address] Yaniv Jarrett, DPM FACFAS 368 [place] [address] Social History Tobacco Use Types Packs/Day Years [...] EDT Office Visit [facility] 368 [place] [address] Yaniv Jarrett R, DPM FACFAS 368 [place] [address] 02/26/2025 9:30 AM EST Office Visit [facility] [place] [address] [facility] 110 [place] [address] Miguel Ray MD [address] [facility] 110 [place] [address] documented as of this encounter Visit Diagnoses Not on filedocumented in this encounter Additional Health Concerns Assessment Noted Time PHQ-9 Depression Total Score: 1 09/30/19 24 10:00 AM EDT documented as of this encounter Care Teams Measurement Psychologist Relationship Specialty Start Date End Date Miguel Ray MD [address] [facility] 110 [place] [address] PCP - [employer] 04/12/22 Miguel Ray MD [address] [facility] [address] [place] [address] PCP - General Internal Medicine 09/08/22 documented as of this encounter
--- OUTSIDE RECORDS SUMMARY | 2024-11-16 08:30 | XMS_ITS | Clinical Summary ---
Author Organization [facility] Address [address] [place] [address] Care Team Providers Care Search Engineer Name Role Phone Miguel Ray MD Unavailable [phone] Miguel Ray MD Primary Care Provider [phone] Allergies Active Allergy Reactions Criticality Noted Date Comments Penicillin G Benzathine Hives 04/01/2021 Penicillins Hives,Itching,Rash,Unknown Low 01/25/20 13 Medications Magnesium Glycinate 665 MG capsule as directed Orally Active Accu-Chek Guide test strip 1 each by Other route in the morning. 06/29/19 23 Active atorvastatin (Lipitor) 40 MG tablet Take 40 mg by mouth at bedtime. 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 180 capsule 3 11/02/19 25 026 Active gabapentin (Neurontin) 300 MG capsuleIndications :Polyneuropathy associated with underlying disease (HCC) Take 1 capsule (300 mg) by mouth at bedtime 90 capsule 3 01/19/20 24 025 Discontin ued(Reord er) Active Problems Problem Noted Date Diagnosed Date [...] Encounters Date Type Department Care Team Description 11/13/2024 Abstract [facility] [address] [place] [address] [place] [address] Miguel Ray MD 11/09/2024 1:10 PM EDT Office Visit [facility] [address] [place] [address] Yaniv Jarrett, DPM FACFAS Onychomycosis (Primary Dx); Type II diabetes mellitus with neurological manifestations (HCC); Pain in right toe(s); Pain in left toe(s) 11/09/2024 Bamboo flowsheet [facility] [address] [place] [address] Yaniv Jarrett, DPM FACFAS 11/01/2024 Refill [facility] [place] [facility] [address] [facility] [address] [place] [address] Shannan Orr MA Polyneuropathy associated with underlying disease (HCC) 10/27/2024 Abstract [facility] [place] [facility] [address] [facility] [address] [place] [address] Mgiuel Ray MD 10/25/2024 9:30 AM EDT Office Visit [facility] [place] [facility] [address] [facility] [address] [place] [address] Miguel Ray MD Routine general medical examination at health care facility (Primary Dx); ACP (advance care planning); Type 2 diabetes mellitus with peripheral angiopathy (HCC); 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); Nonrheumatic aortic valve stenosis; Gastroesophageal reflux disease with esophagitis without hemorrhage; Morbid (severe) obesity due to excess calories ([facility]-HCC); BMI 33.0-33.9,adult; Mixed hyperlipidemia 10/25/2024 Bamboo flowsheet [facility] [place] [facility] [address] [facility] [address] [place] [address] Miguel Ray MD 10/25/2024 Travel 10/04/2024 Refill [facility] [place] [facility] [address] [facility] [address] [place] [address] Miguel Ray MD Osteopenia after menopause 09/29/2024 Abstract [facility] [place] [facility] [address] [facility] [address] [place] [address] Miguel Ray MD 09/12/2024 Clinisync Result Encounter N[facility] External Department Unsolicited Provider, Generic External Data 08/31/2024 1:00 PM EDT Office Visit [facility] [address] [place] [address] Yaniv Jarrett, DPM FACFAS Onychomycosis (Primary Dx); Type II diabetes mellitus with neurological manifestations (HCC); Pain in right toe(s); Pain in left toe(s) 08/31/2024 [facility] [address] [place] [address] Yaniv Jarrett, DPM FACFAS 08/24/2024 Clinisync Result Encounter NOM[facility] External Department Unsolicited Provider, Generic External Data 08/23/2024 Refill [facility] [place] [facility] [address] [place] [address] [place] [address] Miguel Ray MD Osteopenia after menopause from Last 3 Months Immunizations Immunization Administration [...] Pulse 77 11/09/2024 1:06 PM EDT Temperature 36.5 C (97.7 F) 08/05/2023 9:47 AM EDT Respiratory Rate 16 03/15/2024 2:30 PM EST Oxygen Saturation 98% 10/25/2024 9:36 AM EDT Inhaled Oxygen Concentration - - Weight 103 kg (228 lb) 11/09/2024 1:06 PM EDT Height 167.6 cm (5' 6 ) 11/09/2024 1:06 PM EDT Body Mass Index 36.8 11/09/2024 1:06 PM EDT Plan of Treatment Upcoming Encounters Date Type Department Care Team (Late st Contact Info) Description 01/18/2025 1:50 PM EDT Office Visit [facility] [address] [place] [address] Yaniv Jarrett, DPM FACFAS [address] [place] [address] 02/26/2025 9:30 AM EST Office Visit [facility] [place] [facility] 112 [facility] 110 [place] [address] Miguel Ray MD 112 [facility] 110 [place] [address] Health Maintenance Due Date Last Done Comments Diabetes: Hemoglobin A1C 09/14/2024 025, 01/19/2024, 10/18/2023, Additional history exists Diabetes: Urine Protein Screening 10/03/2024 10/04/2023, 01/26/2023, 10/08/2021, Additional history exists Influenza Vaccine (#1) 2024 4, 12/25/2022, 01/26/2022, Additional history exists Diabetes: Retinopathy Screening 05/19/2025 05/19/2024, 10/23/2022, 12/17/2021, Additional history exists Medicare Annual Wellness (AWV) 10/25/2025 0 10/25/2024, 09/30/2023, 10/12/2022, Additional history exists Pneumococcal Vaccine: 65+ Years Completed 3, 07/13/2000 Procedures Procedure Name Priority Date/Time Associated Diagnosis Comments T4, FREE Routine 11/06/2024 9:28 AM EDT TSH W/REFLEX TO FT4 Routine 11/06/2024 9 :28 AM EDT Type 2 diabetes mellitus with peripheral angiopathy (HCC) LIPID PANEL Routine 11/06/2024 9:28 AM EDT Type 2 diabetes mellitus with peripheral angiopathy (HCC) COMPREHENSIVE METABOLIC PANEL Routine 11/06/2024 9:28 AM EDT Type 2 diabetes mellitus with peripheral angiopathy (HCC) CBC (INCLUDES DIFF/PLT) Routine 11/06/2024 9:28 AM EDT Type 2 diabetes mellitus with peripheral angiopathy (HCC) MR LUMBAR SPINE WO CON 11:51 AM EDT XR LUMBAR SPINE 6V W BENDING 08/24/2024 10:24 AM EDT POCT GLYCATED HEMOGLOBIN, TOTAL Routine 06/14/2024 11:36 AM EST Type 2 diabetes mellitus with peripheral angiopathy (HCC) DIABETIC RETINOPATHY SCREENING - OU - BOTH EYES Routine 05/19/2024 MICROALBUMIN / CREATININE URINE RATIO Routine 10/04/2023 10:15 AM EDT Type 2 diabetes mellitus with peripheral angiopathy (HCC) from Last 3 Months or Most Recently Relevant to Health Maintenance Results * (ABNORMAL) TSH W/REFLEX TO FT4 (11/06/2024 9:28 AM EDT) TSH W/REFLEX TO FT4 5.11(H) 0.40 - 4.50 mIU/L [facility] 11/06/2024 9:28 AM EDT 11/06/2024 9:28 AM EDT Narrative [facility] - 11/07/2024 9:22 AM EDT FASTING:YES FASTING: YES Resulting Agency Comment Performing Organization Information Site ID: QPT Name: [employer] [facility] Address: [address] [place] [address] Director: Miky Ruby MD us Miguel Ray MD LAB BLOOD ORDERABLES Final Res ult [facility] * (ABNORMAL) CBC and differential (11/06/2024 9:28 AM EDT) Pathologist [facility] WHITE BLOOD CELL COUNT 7.5 3.8 - 10.8 Thousand/u L [facility] RED BLOOD CELL COUNT 3.67(L) 3.80 - 5.10 Million/uL [facility] HEMOGLOBIN 11.3(L) 11.7 - 15.5 g/dL [facility] HEMATOCRIT 37.5 35.0 - 45.0 % [facility] MCV 102.2(H) 80.0 - 100.0 fL [facility] MCH 30.8 27.0 - 33.0 pg [facility] MCHC 30.1(L) 32.0 - 36.0 g/dL [facility] Comment: For adults, a slight decrease in the calculated MCHC value (in the range of 30 to 32 g/dL) is most likely not clinically significant; however, it should be interpreted with caution in correlation with other red cell parameters and the patient's clinical condition. RDW 15.0 11.0 - 15.0 % [facility] PLATELET COUNT 137(L) 140 - 400 Thousand/u L [facility] MPV 10.8 7.5 - 12.5 fL [facility] ABSOLUTE NEUTROPHILS 5,003 1,500 - 7,800 cells/uL [facility] ABSOLUTE LYMPHOCYTES 1,523 850 - 3,900 cells/uL [facility] ABSOLUTE MONOCYTES 855 200 - 950 cells/uL [facility] ABSOLUTE EOSINOPHILS 90 15 - 500 cells/uL [facility] ABSOLUTE BASOPHILS 30 0 - 200 cells/uL [facility] NEUTROPHILS 66.7 % [facility] LYMPHOCYTES 20.3 % [facility] MONOCYTES 11.4 % [facility] EOSINOPHILS 1.2 % [facility] BASOPHILS 0.4 % [facility] Blood Venous blood specimen / Unknown 11/06/2024 9:28 AM EDT 11/06/2024 9:28 AM EDT Narrative [facility] - 11/07/2024 9:22 AM EDT FASTING:YES FASTING: YES Resulting Agency Comment Performing Organization Information Site ID: QPT Name: [employer] [facility] Address: [address] [place] [address], [address] [place] [phone] Director: Miky Ruby MD us Miguel Ray MD LAB BLOOD ORDERABLES Final Res ult Performing Organization Address [facility] [address]/[facility] de Phone Number [facility] * T4, free (11/06/2024 9:28 AM EDT) Pathologist [facility] T4, FREE 1.0 0.8 - 1.8 ng/dL [facility] 11/06/2024 9:28 AM EDT 11/06/2024 9:28 AM EDT Narrative [facility] - 11/07/2024 9:22 AM EDT FASTING:YES FASTING: YES Resulting Agency Comment Performing Organization Information Site ID: QPT Name: [employer] [facility] Address: [address] [place] [address], [address] [place] [phone] Director: Miky Ruby MD us Miguel Ray MD LAB BLOOD ORDERABLES Final Res ult Performing Organization Address [facility] [address]/[facility] de Phone Number [facility] * Lipid panel (11/06/2024 9:28 AM EDT) [facility] CHOLESTEROL, TOTAL 111 <200 mg/dL [facility] HDL CHOLESTEROL 64 > OR = 50 mg/dL [facility] TRIGLYCERIDES 54 <150 mg/dL [facility] LDL CHOLESTEROL 34 mg/dL (calc) [facility] Comment: Reference range: <100 Desirable range <100 mg/dL for primary prevention; <70 mg/dL for patients with CHD or diabetic patients with > or = 2 CHD risk factors. LDL-C is now calculated using the Nicho calculation, which is a validated novel method providing better accuracy than the Friedewald equation in the estimation of LDL-C. Parker HAYNES et al. INDRA. 2013;310(19): 5999-2673 (http://education.[address].[employer]/faq/RXZ735) CHOL/HDLC RATIO 1.7 <5.0 (calc) [facility] NON HDL CHOLESTEROL 47 <130 mg/dL (calc) [facility] Comment: For patients with diabetes plus 1 major ASCVD risk factor, treating to a non-HDL-C goal of <100 mg/dL (LDL-C of <70 mg/dL) is considered a therapeutic option. Blood Venous blood specimen / Unknown 11/06/2024 9:28 AM EDT 11/06/2024 9:28 AM EDT Narrative [facility] - 11/07/2024 9:22 AM EDT FASTING:YES FASTING: YES Resulting Agency Comment Performing Organization Information Site ID: QPT Name: [facility] [employer] [facility] Address: [address] [place] [address], [address] [place] [address] Director: Miky Ruby MD us Miguel Ray MD LAB BLOOD ORDERABLES Final Res ult [facility] * (ABNORMAL) Comprehensive metabolic panel (11/06/2024 9:28 AM EDT) Glucose 93 65 - 99 mg/dL [facility] Comment: Fasting reference interval BUN 26(H) 7 - 25 mg/dL [facility] Creatinine 0.96(H) 0.60 - 0.95 mg/dL [facility] EGFR 59(L) > OR = 60 mL/min/1.7 3m2 [facility] BUN/CREATININE RATIO 27(H) 6 - 22 (calc) [facility] Sodium 139 135 - 146 mmol/L [facility] Potassium, Bld 4.9 3.5 - 5.3 mmol/L [facility] Chloride 104 98 - 110 mmol/L [facility] Carbon Dioxide 27 20 - 32 mmol/L [facility] Calcium 8.9 8.6 - 10.4 mg/dL [facility] PROTEIN, TOTAL 6.4 6.1 - 8.1 g/dL [facility] ALBUMIN 3.9 3.6 - 5.1 g/dL [facility] GLOBULIN 2.5 1.9 - 3.7 g/dL (calc) [facility] ALBUMIN/GLOBULIN RATIO 1.6 1.0 - 2.5 (calc) [facility] BILIRUBIN, TOTAL 0.4 0.2 - 1.2 mg/dL [facility] ALKALINE PHOSPHATASE 94 37 - 153 U/L [facility] AST 25 10 - 35 U/L [facility] ALT 22 6 - 29 U/L [facility] Blood Venous blood specimen / Unknown 11/06/2024 9:28 AM EDT 11/06/2024 9:28 AM EDT Narrative [facility] - 11/07/2024 9:22 AM EDT FASTING:YES FASTING: YES Resulting Agency Comment Performing Organization Information Site ID: QPT Name: [facility] Address: [address] [place] [address], [address] [place] [phone] Director: Miky Ruby MD us Miguel Ray MD LAB BLOOD ORDERABLES Final Res ult [facility] * MR LUMBAR SPINE WO CON (09/12/2024 11:51 AM EDT) Anatomical Region Laterality Modality Other 09/12/2024 11:5 1 AM EDT Narrative 09/12/2024 11:54 AM EDT [address] [address] Magnetic Resonance Report Signed Patient: VICKY RUSSELL MR#: [id number] : 1940 Acct:[id number] Age/Sex: 83 / F ADM Date: 09/12/24 Loc: MRI Attending Dr: Esme Padilla NP Ordering Physician: Esme Padilla NP Date of Service: 09/12/24 Procedure(s): MR lumbar spine wo con Accession Number(s): [id number] cc: MIGUEL RAY ; Esme Padilla NP [address] [address] Patient Name: VICKY RUSSELL MRN: [id number] date: 1940 Sex: F Assigned Patient Location: MRI Current Patient Location: MRI Accession/Order Number: [id number] Exam Date: 09/12/2024 11:46 Report Date: 09/12/2024 [...] Dean M.D. 09/12/2024 11:51 AM Dictation Location: [place] [address] Electronically authenticated by: [id number] Y Date: 09/12/2024 11:51 Dictated By: Nikita Dean M.D. Signed By: 09/12/24 1154 DD/ 1151 TD/TT: Mail Sorter And Delivery: Procedure Note Radiology, Radiologist, MD - 09/12/2024 [place] [address] Magnetic Resonance Report Signed Patient: VICKY RUSSELL SMR#: [id number] : 1940cct:[id number] Age/Sex: 83 / FADM Date: 09/12/24 Loc: MRI Attending Dr: Esme Padilla NP Ordering Physician: Esme Padilla NP Date of Service: 09/12/24 Procedure(s): MR lumbar spine wo con Accession Number(s): [id number] cc: MIGUEL RAY ; Esme Padilla NP [place] [id number] Patient Name: VICKY RUSSELL MRN: [id number] date: 1940 Sex: F Assigned Patient Location: MRI Current Patient Location: MRI Accession/Order Number: [id number] Exam Date: 09/12/2024 11:46 Report Date: 09/12/2024 [...] Dean M.D. 09/12/2024 11:51 AM Dictation Location: [place] [address] Electronically authenticated by: [id number] Y Date: 1:51 Dictated By: Nikita Dean M.D. Signed By:09/12/24 1154 DD/ 1151 TD/TT: Mail Sorter And Delivery: Generic External Data Provider [facility] Final Result * XR LUMBAR SPINE 6V W BENDING (08/24/2024 10:24 AM EDT) Anatomical Region Laterality Modality Other 08/24/2024 10:2 4 AM EDT Narrative 08/24/2024 10:26 [place] [address] XRay Report Signed Patient: VICKY RUSSELL MR#: [id number] : 1940 Acct:[id number] Age/Sex: 83 / F ADM Date: 08/24/24 Loc: LAB Attending Dr: Esme Padilla NP Ordering Physician: Esme Padilla NP Date of Service: 08/24/24 Procedure(s): XR lumbar spine 6V w bending Accession Number(s): [id number] cc: MIGUEL RAY ; Esme Padilla NP [place] [address] Patient Name: VICKY RUSSELL MRN: [id number] date: 1940 Sex: F Assigned Patient Location: LAB Current Patient Location: LAB Accession/Order Number: [id number] Exam Date: 08/24/2024 10:20 Report Date: 08/24/2024 [...] Dean M.D. 08/24/2024 10:24 AM Dictation Location: [place] [address] Electronically authenticated by: [id number] Y Date: 08/24/2024 10:24 Dictated By: Nikita Dean M.D. Signed By: 08/24/24 1026 DD/ 1024 TD/TT: Mail Sorter And Delivery: Procedure Note Radiology, Radiologist, MD - 08/24/2024 [place] [address] XRay Report Signed Patient: VICKY URSSELL SMR#: [id number] : 1940cct:[id number] Age/Sex: 83 / FADM Date: 08/24/24 Loc: LAB Attending Dr: Esme Padilla NP Ordering Physician: Esme Padilla NP Date of Service: 08/24/24 Procedure(s): XR lumbar spine 6V w bending Accession Number(s): [id number] cc: MIGUEL RAY ; Esme Padilla NP [place] [id number] Patient Name: VICKY RUSSELL MRN: [id number] date: 1940 Sex: F Assigned Patient Location: LAB Current Patient Location: LAB Accession/Order Number: [id number] Exam Date: 08/24/2024 10:20 Report Date: 08/24/2024 [...] Dean M.D. 08/24/2024 10:24 AM Dictation Location: [place] [address] Electronically authenticated by: [id number] Y Date: 0:24 Dictated By: Nikita Dean M.D. Signed By:08/24/24 1026 DD/ 1024 TD/TT: Mail Sorter And Delivery: Generic External Data Provider [facility] Final Result * POCT Glycated hemoglobin, total (06/14/2024 11:36 AM EST) Hemoglobin A1C 6.2 Blood 06/14/2024 11:3 6 AM EST Miguel Ray MD POINT OF CARE TEST ENTER/EDIT ORDERABLES Final Result * (ABNORMAL) Diabetic Retinopathy Screening - OU - Both Eyes (05/19/2024) RESULTS abn Anatomical Region Laterality Modality Head Other 05/19/2024 Miguel Ray MD OPHTH PHOTOGRAPHY Final Result * Microalbumin / creatinine, urine [...] Performing Organization Information Site ID: QPT Name: [facility] Address: [address] [place] [address], [address] [place] [phone] Director: Miky Ruby MD Aisha Okeefe MEDIA PROFESSIONAL LAB URINE ORDERABLES Final Resul t [facility] from Last 3 Months or Most Recently Relevant to Health Maintenance Insurance [facility] MEDICARE ADVANTAGE Care Teams Search Engineer Relationship Specialty Start Date End Date Miguel Ray MD [address] [facility] [address] [place] [address] PCP - [employer] 04/12/22 Miguel Ray MD [address] [facility] [address] [place] [address] PCP - General Internal Medicine 09/08/22
--- OUTSIDE RECORDS SUMMARY | 2024-11-16 08:30 | XMS_ITS | Encounter Summary ---
Author Organization [facility] Address [address] [place] [address] Care Team Providers Care Loss Mitigation Specialist Name Role Phone Miguel Ray MD Unavailable Miguel Ray MD Primary Care Provider [phone] Encounter Details Date Type Department Care Team (Late st Contact Info) Description 07/26/2024 Abstract [facility] [place] [facility] [address] [facility] [address] [place] [address] Miguel Ray MD [address] [facility] [address] [place] [address] Social History Tobacco Use Types Packs/Day Years [...] EDT Office Visit [facility] [address] [place] [address] Yaniv Jarrett, DPM FACFAS [address] [facility] [place] [address] 02/26/2025 9:30 AM EST Office Visit [facility] [place] [facility] [address] [facility] [address] [place] [address] Miguel Ray MD [address] [facility] [address] [place] [address] documented as of this encounter Visit Diagnoses Not on filedocumented in this encounter Additional Health Concerns Assessment Noted Time PHQ-9 Depression Total Score: 1 09/30/19 24 10:00 AM EDT documented as of this encounter Care Teams Loss Mitigation Specialist Relationship Specialty Start Date End Date Miguel Ray MD [address] [facility] [address] [place] [address] PCP - [employer] 04/12/22 Miguel Ray MD [address] [facility] [address] [place] [address] PCP - General Internal Medicine 09/08/22 documented as of this encounter
--- OUTSIDE RECORDS SUMMARY | 2024-11-16 08:30 | XMS_ITS | Encounter Summary ---
Author Organization [facility] Address [address] [facility] [place] [address] Care Team Providers Care Wharf Labourer Name Role Phone Miguel Ray MD Unavailable [phone] Miguel Ray MD Primary Care Provider [phone] Encounter Details Date Type Department Care Team (Late Contact Info) Description 11/13/2024 Abstract [facility] [place] [facility] 112 [facility] 110 [place] [address] Miguel Ray MD 112 [facility] 110 [place], [place] [id number] Social History Tobacco Use Types Packs/Day Years [...] EDT Office Visit [facility] [address] [place] [address] Yaniv Jarrett, DPM FACFAS [address] [facility] [place] [address] 02/26/2025 9:30 AM EST Office Visit [facility] [place] [facility] [address] [facility] [address] [place] [address] Miguel Ray MD [address] [facility] [address] [place] [address] documented as of this encounter Visit Diagnoses Not on filedocumented in this encounter Additional Health Concerns Assessment Noted Time PHQ-9 Depression Total Score: 1 09/30/19 24 10:00 AM EDT documented as of this encounter Care Teams Wharf Labourer Relationship Specialty Start Date End Date Miguel Ray MD [address] [facility] [address] [place] [address] PCP - [employer] 04/12/22 Miguel Ray MD [address] [facility] [address] [place] [address] PCP - General Internal Medicine 09/08/22 documented as of this encounter
--- OUTSIDE RECORDS SUMMARY | 2024-11-16 08:30 | XMS_ITS | Encounter Summary ---
Author Organization [facility] Address [address] [facility] [address] Care Team Providers Care Right Of Way Supervisor Name Role Phone Miguel Ray MD Unavailable [phone] Miguel Ray MD Primary Care Provider Encounter Details Date Type Department Care Team (Late Contact Info) Description 10/27/2024 Abstract [facility] [place] [facility] 112 [facility] 110 [place] [address] Miguel Ray MD 112 [facility] 110 [place], [place] [id number] Social History Tobacco Use Types Packs/Day Years [...] EDT Office Visit [facility] [address] [place] [address] Yaniv Jarrett, DPM FACFAS 368 [facility] [place] [address] 02/26/2025 9:30 AM EST Office Visit [facility] [place] [facility] [address] [facility] [address] [place] [address] Miguel Ray MD [address] [facility] [address] [place] [address] documented as of this encounter Visit Diagnoses Not on filedocumented in this encounter Additional Health Concerns Assessment Noted Time PHQ-9 Depression Total Score: 1 09/30/19 24 10:00 AM EDT documented as of this encounter Care Teams Right Of Way Supervisor Relationship Specialty Start Date End Date Miguel Ray MD [address] [facility] [address] [place] [address] PCP - [employer] 04/12/22 Miguel Ray MD [address] [facility] [address] [place] [address] PCP - General Internal Medicine 09/08/22 documented as of this encounter
--- OUTSIDE RECORDS SUMMARY | 2024-11-16 08:30 | XMS_ITS | Encounter Summary ---
Author Organization [facility] Address [address] [facility] [place] [address] Care Team Providers Care Animator Name Role Phone Miguel Ray MD Unavailable [phone] Miguel Ray MD Primary Care Provider [phone] Encounter Details Date Type Department Care Team (Late Contact Info) Description 07/27/2024 Abstract [facility] [place] [facility] 112 [facility] [address] [place] [address] Miguel Ray MD [address] [facility] 110 [place], [place] [id number] Social History Tobacco Use Types Packs/Day Years [...] EDT Office Visit [facility] [address] [place] [address] Yaniv Jarrett, DPM FACFAS [address] [facility] [place] [address] 02/26/2025 9:30 AM EST Office Visit [facility] [place] [facility] [address] [facility] [address] [place] [address] Miguel Ray MD [address] [facility] 110 [place] [address] documented as of this encounter Visit Diagnoses Not on filedocumented in this encounter Additional Health Concerns Assessment Noted Time PHQ-9 Depression Total Score: 1 09/30/19 24 10:00 AM EDT documented as of this encounter Care Teams Animator Relationship Specialty Start Date End Date Miguel Ray MD [address] [facility] [address] [place] [address] PCP - [employer] 04/12/22 Miguel Ray MD [address] [facility] [address] [place] [address] PCP - General Internal Medicine 09/08/22 documented as of this encounter
--- OUTSIDE RECORDS SUMMARY | 2024-11-16 08:30 | XMS_ITS | Encounter Summary ---
Author Organization [facility] Address [address] [place] [address] Care Team Providers Care Neuro Intensivist Physician Name Role Phone Miguel Ray MD Unavailable [phone] Miguel Ray MD Primary Care Provider [phone] Encounter Details Date Type Department Care Team (Late Contact Info) Description 10/07/2023 Abstract [facility] [place] [facility] 112 [facility] 110 [place] [phone] Miguel Ray MD 112 [facility] 110 [place], [place] [id number] Social History Tobacco Use Types Packs/Day Years [...] EDT Office Visit [facility] [address] [place] [address] Yaniv Jarrett, DPM FACFAS [address] [place] [address] 02/26/2025 9:30 AM EST Office Visit [facility] [place] [facility] [address] [facility] 110 [place] [address] Miguel Ray MD [address] [facility] [address] [place] [address] documented as of this encounter Visit Diagnoses Not on filedocumented in this encounter Additional Health Concerns Assessment Noted Time PHQ-9 Depression Total Score: 1 09/30/19 24 10:00 AM EDT documented as of this encounter Care Teams Neuro Intensivist Physician Relationship Specialty Start Date End Date Miguel Ray MD [address] [facility] [address] [place] [address] PCP - [employer] 04/12/22 Miguel Ray MD [address] [facility] [address] [place] [address] PCP - General Internal Medicine 09/08/22 documented as of this encounter
--- OUTSIDE RECORDS SUMMARY | 2024-11-16 08:30 | XMS_ITS | Encounter Summary ---
Author Organization [facility] Address [address] [place] [address] Care Team Providers Care Rehab Therapy Manager Name Role Phone Miguel Ray MD Unavailable [phone] Miguel Ray MD Primary Care Provider [phone] Encounter Details Date Type Department Care Team (Late Contact Info) Description 09/29/2024 Abstract [facility] [place] [facility] 112 [facility] 110 [place] [phone] Miguel Ray MD 112 [facility] 110 [place], [place] [phone] Social History Tobacco Use Types Packs/Day Years [...] EDT Office Visit [facility] [address] [place] [address] Yaniv Jarrett, DPM FACFAS [address] [place] [address] 02/26/2025 9:30 AM EST Office Visit [facility] [place] [facility] [address] [facility] 110 [place] [address] Miguel Ray MD [address] [facility] 110 [place] [address] documented as of this encounter Visit Diagnoses Not on filedocumented in this encounter Additional Health Concerns Assessment Noted Time PHQ-9 Depression Total Score: 1 09/30/19 24 10:00 AM EDT documented as of this encounter Care Teams Rehab Therapy Manager Relationship Specialty Start Date End Date Miguel Ray MD [address] [facility] [address] [place] [address] PCP - [employer] 04/12/22 Miguel Ray MD [address] [facility] [address] [place] [address] PCP - General Internal Medicine 09/08/22 documented as of this encounter
--- OUTSIDE RECORDS SUMMARY | 2024-11-16 08:30 | XMS_ITS | Clinical Summary ---
Author Organization [facility] Address [address] [place], [place] [id number] Care Team Providers Care Regional Engineer Name Role Phone Cory BATEMAN MD, Miguel Mendoza Primary Care Provider [phone] Allergies Active Allergy Reactions Criticality Noted Date Comments Penicillins Rash,Hives,Itching 01/24/2013 Medications metFORMIN 1,000 mg tablet Take 1 tablet by mouth once daily. 10/27/19 14 Active hydroxychloroquin e (PLAQUENIL) 200 mg tabletIndications :Erosive osteoarthritis of multiple sites take one tab twice a day with a meal, sunscreen when outdoors, see cumulative effects analyst every 6-12months while on med 180 tablet [...] 07/22/2016, 0 09/16/2015, 07/27/2014, Additional history exists Advance Directive Discussion 04/12/2024 Influenza Vaccine (#1) 2024 Bone Density Screening Completed 01/22/2016, 2013 Procedures Procedure Name Priority Date/Time Associated Diagnosis Comments COMPREHENSIVE METABOLIC PANEL Routine 07/22/2016 12:55 PM EDT Elevated LFTs BMD BONE DENSITY Routine 01/22/2016 1:31 PM EDT Osteopenia from Last 3 Months or Most Recently Relevant to Health Maintenance Results * (ABNORMAL) COMP METABOLIC PANEL (07/22/2016 12:55 PM EDT) [facility] Protein, Total 7.2 6.3 - 8.0 g/dL 07/22/2016 11:05 PM [facility] Albumin 3.8(L) 3.9 - 4.9 g/dL 07/22/2016 11:05 PM [facility] Calcium 9.9 8.5 - 10.2 mg/dL 07/22/2016 11:05 PM [facility] Bilirubin, Total 0.4 0.2 - 1.3 mg/dL 07/22/2016 11:05 PM [facility] Alkaline Phosphatase 77 32 - 117 U/L 07/22/2016 11:05 PM [facility] AST 20 13 - 35 U/L 07/22/2016 11:05 PM [facility] Glucose 108(H) 74 - 99 mg/dL 07/22/2016 11:05 PM [facility] Comment: The [place] Diabetes Association (ADA) provides guidance for cutoff [...] Standards of Medical Care in Diabetes 2016, [place] Diabetes Association. Diabetes Care. 2016.39(Suppl 1). BUN 20 7 - 21 mg/dL 07/22/2016 11:05 PM [facility] Creatinine 0.71 0.58 - 0.96 mg/dL 07/22/2016 11:05 PM [facility] Sodium 140 136 - 144 mmol/L 07/22/2016 11:05 PM [facility] Potassium 4.6 3.7 - 5.1 mmol/L 07/22/2016 11:05 PM [facility] Chloride 102 97 - 105 mmol/L 07/22/2016 11:05 PM [facility] CO2 24 22 - 30 mmol/L 07/22/2016 11:05 PM EDT [facility] Anion Gap 14 9 - 18 mmol/L 07/22/2016 11:05 PM EDT [facility] ALT 11 7 - 38 U/L 07/22/2016 11:05 PM EDT [facility] eGFR- >60 07/22/2016 11:05 PM EDT [facility] eGFR-All Other Races >60 . 07/22/2016 11:05 PM EDT [facility] Comment: eGFR (Estimated GFR) Units [...] EDT Shirley Antony MD LABORATORY Final Result Performing Organization Address City/State/[facility] Co de Phone Number [facility] [address] [facility] [place] [address] * BMD BONE DENSITY (01/22/2016 1:31 PM [...] machine for accurate comparison. FOR MORE INFORMATION: [facility] for Osteoporosis and Metabolic Bone Disease: www.ccf.org/arthritis/osteo National Osteoporosis Foundation: www.nof.org International Society of Clinical Densitometry www.iscd.org Cardiovascular Physician Assistant: [id number] Transcribe Date/Time: Jan 22 2016 1:38P Dictated [...] , Gender: Female SCANNER INFORMATION: DXA Model: Zuki W (S/N: [id number]) SITE SCANNED: Lumbar spine and bilateral hips [...] g/cm2, T-score +2.6, Z-score +4.9 Lumbar spine: 2014: 1.325 g/cm2 No statistically significant change Right Femoral Neck: 0.753 g/cm2, T-score -0.9, Right Femoral Neck: 2014: 0.849 g/cm2 Statistically significant decrease by 7.5% Right Total Hip: 0.898 g/cm2, T-score -0.4, Right Total Hip: 2014: 0.951 g/cm2 Statistically significant decrease by 5.5% Left Femoral Neck: 0.785 g/cm2, T-score -0.6, Left Femoral Neck: 2014: 0.766 g/cm2 No statistically significant change Left Total Hip: 1.049 g/cm2, T-score +0.9, Left Total Hip: 2013: 1.059 g/cm2 No statistically significant change CHANGE IS STATISTICALLY SIGNIFICANT IN THE SPINE OR HIP IF GREATER THAN OR EQUAL TO 0.04g/cm2 Shirley Antony MD BONE DENSITY Final Result from Last 3 Months or Most Recently Relevant to Health Maintenance Insurance [facility] MEDICARE Care Teams Regional Engineer Relationship Specialty Start Date End Date Miguel Ray II, MD PCP - General Internal Medicine 08/02/12
--- OUTSIDE RECORDS SUMMARY | 2024-11-16 08:31 | XMS_ITS | Clinical Summary ---
Author Organization [facility] Address [address] [place] [address] Care Team Providers Care Vice President Pharmacy Name Role Phone Cory BATEMAN MD, Miguel Primary Care Provider Allergies Active Allergy Reactions Criticality Noted Date Comments Penicillins Hives 01/06/2017 Medications metformin 1000 MG Tab take 1,000 mg by mouth 2 times daily. Active Turmeric (CURCUMIN 95 PO) take 1 tablet by mouth 2 times daily. Active therapeutic multivitamin-mi nerals Tab take 1 tablet by mouth daily. 30 tablet Active Additional Information Patient not taking.Reported on [...] - 2023-2 5 season) 2023 INFLUENZA VACCINE (#1) 2024 HEP B VACCINE Aged Out No longer elig ible based on patient's age to complete this topic Medical Devices Implanted Type Area Final Tester Device Identifier Shelf Expiration Date Model / Serial / Lot Palacos R + G Cement With Gentamicin Implanted:Qty: 1 on 01/25/2017 by Kirill Garcia MD at [facility] Right: Knee 03/11/2020-1113-140 -01 / / [id number] Description:Palacos r + g osvaldo ne cement with gentamicin Lot [id number] CA no [id number] Exp 2020-03-11 Foreman Stem Fluted Implanted:Qty: 1 on 01/25/2017 by Kirill Garcia MD at [facility] Right: Knee DEPUY 08/09/2025 [id number] / / [id number] Foreman Femoral Sleeve Full Porous Implanted:Qty: 1 on 01/25/2017 by Kirill Garcia MD at [facility] Right: Knee DEPUY 03/11/2026 [id number] / / [id number] Posterior Augment Combo Implanted:Qty: 1 on 01/25/2017 by Kirill Garcia MD at [facility] Right: Knee DEPUY 12/10/2025 [id number] / / [id number] Sigma Femoral Adapter [place] Implanted:Qty: 1 on 01/25/2017 by Kirill Garcia MD at [facility] Right: Knee DEPUY 12/10/2026 [id number] / / [id number] Sigma Femoral Adapter Implanted:Qty: 1 on 01/25/2017 by Kirill Garcia MD at [facility] Right: Knee DEPUY 2026 [id number] / / [id number] M.B.T Revision Step Wedge Implanted:Qty: 1 on 01/25/2017 by Kirill Garcia MD at [facility] Right: Knee DEPUY 07/10/2022 1294-56-130 / / [id number] Tibial Tray Rotating Platform M.B.T. Revision Implanted:Qty: 1 on 01/25/2017 by Kirill Garcia MD at [facility] Right: Knee DEPUY 04/11/2026 [id number] / / [id number] Palacos R + G Bone Cement With Gentamicin Implanted:Qty: 1 on 01/25/2017 by Kirill Garcia MD at [facility] Right: Knee 06/09/2020-1113-140 -01 / / Description:Palacos r + g osvaldo ne cement with gentamicin Lot [id number] Cat no [id number] Exp 06-09-2020 Palacos R + G Bone Cement With Gentamicin Implanted:Qty: 1 on 01/25/2017 by Kirill Garcia MD at [facility] Right: Knee 03/11/2020 CAT 00-1113-140 -01 / / [id number] Description:Palacos r + g osvaldo ne cement with gentamicin Lot [id number] Exp 2020-03-11 Cat no [id number] Foreman Stem Fluted Implanted:Qty: 1 on 01/25/2017 by Kirill Garcia MD at [facility] Right: Knee 2026 [id number] / / [id number] Description:UNIVERSAL STEM F LUTED 75MM X 14MM REF [id number] LOT [id number] Sigma Tibial Insert Rotating Platform Tc3 Implanted:Qty: 1 on 01/25/2017 by Kirill Garcia MD at [facility] Right: Knee DEPUY 08/10/2019 [id number] / / [id number] Distal Augment Combo Implanted:Qty: 1 on 01/25/2017 by Kirill Garcia MD at [facility] Right: Knee DEPUY 09/09/2024 [id number] / / [id number] Posterior Augment Combo Implanted:Qty: 1 on 01/25/2017 by Kirill Garcia MD at [facility] Right: Knee DEPUY 2024 [id number] / / [id number] Oval Dome Patella 3 Peg Implanted:Qty: 1 on 01/25/2017 by Kirill Garcia MD at [facility] Right: Knee DEPUY 95-0102 / / [id number] Sigma Femoral Tc3 Cemented Implanted:Qty: 1 on 01/25/2017 by Kirill Garcia MD at [facility] Right: Knee DEPUY 05/12/2025 / / [id number] Insurance MEDICARE A AND B Advance Directives For more information, please contact: [phone] (7:30 AM - 6PM [facility], Wednesday-Wednesday) * Full Code (Latest Code Status on File) Date Activated Date Inactivated Comments 01/25/2017 4:47 PM 01/28/2017 8:13 PM * Full Code Date Activated Date Inactivated Comments 01/25/2017 12:13 PM 01/25/2017 4:47 PM Care Teams Vice President Pharmacy Relationship Specialty Start Date End Date Miguel Ray II, MD [address] [place] [address] PCP - General Internal Medicine 01/06/17
--- OUTSIDE RECORDS SUMMARY | 2024-11-16 08:31 | XMS_ITS | Encounter Summary ---
Author Organization [facility] Address [address] [facility] [place] [address] Care Team Providers Care Speech And Drama Teacher Name Role Phone Miguel Ray MD Unavailable [phone] Miguel Ray MD Primary Care Provider [phone] Encounter Details Date Type Department Care Team (Late Contact Info) Description 11/17/2022 Abstract [facility] [place] [facility] [address] [facility] [address] [place] [address] Miguel Ray MD [address] [facility] 110 [place] [address] Social History Tobacco Use Types Packs/Day Years [...] EDT Office Visit [facility] [address] [place] [address] Yaniv Jarrett, DPM FACFAS [address] [facility] [place] [address] 02/26/2025 9:30 AM EST Office Visit [facility] [place] [facility] [address] [place] [address] [place] [address] Miguel Ray MD [address] [facility] [address] [place] [address] documented as of this encounter Visit Diagnoses Not on filedocumented in this encounter Care Teams Speech And Drama Teacher Relationship Specialty Start Date End Date Miguel Ray MD [address] [facility] [address] [place] [address] PCP - [employer] 04/12/22 Miguel Ray MD [address] [facility] [address] [place] [address] PCP - General Internal Medicine 09/08/22 documented as of this encounter
--- OUTSIDE RECORDS SUMMARY | 2024-11-16 08:31 | XMS_ITS | Encounter Summary ---
Author Organization [facility] Address [address] [place] [address] Phone Care Team Providers Care Shirring Machine Operator Automatic Name Role Phone Miguel Ray MD Primary Care Provider [phone] Encounter Details Date Type Department Care Team (Late Contact Info) Description 05/17/2024 Scanned Document [facility] [address] [place] [address] Scanning, Generic Provider Social History Tobacco Use [...] Department Care Team (Late Contact Info) Description 12/12/2024 8:45 AM EDT Appointment [address] [place] [address] 11/12/2025 9:00 AM EDT Office Visit [address] 250 [place] [address] Jaleesa Cai MD 917 [facility] 130 [place], [place] [address] documented as of this encounter Visit Diagnoses Not on filedocumented in this encounter Additional Health Concerns Assessment Noted Time A fall risk assessment has been complete d for the patient 11/08/2023 10:45 AM EDT documented as of this encounter Care Teams Shirring Machine Operator Automatic Relationship Specialty Start Date End Date Miguel Ray MD [address] [facility] 110 [place] [address] PCP - General 11/04/22 documented as of this encounter
--- OUTSIDE RECORDS SUMMARY | 2024-11-16 08:31 | XMS_ITS | Clinical Summary ---
Author Organization [facility] Address [address] [place] [address] Phone Care Team Providers Care Speech Language Specialist Name Role Phone Miguel Ray MD Primary Care Provider [phone] Allergies Active Allergy Reactions Criticality Noted Date [...] (5 mg) by mouth once daily. Active aspirin 81 mg EC tablet Take 2 tablets (162 mg) by mouth once daily. Active cholecalciferol (Vitamin D3) 50 mcg (2,000 units) tablet Take 1 tablet (50 mcg) by mouth once daily. Active calcium amino acid chelate 200 mg calcium tablet Take 1 tablet (200 mg) by mouth once daily. Active magnesium glycinate 100 mg tablet Take 1 tablet by mouth once daily. Active atorvastatin (Lipitor) 40 mg tabletIndications: Mixed hyperlipidemia Take 1 tablet (40 mg) by mouth once daily. 90 tablet 3 5 11/11/19 26 Active lisinopril 2.5 mg tabletIndications: Mitral valve stenosis and aortic valve stenosis,Bilateral carotid bruits Take 1 tablet (2.5 mg) by mouth once daily. 90 tablet 3 4 11/11/19 25 Discontin ued(Thera py completed ) atorvastatin (Lipitor) 40 mg tabletIndications: Mixed hyperlipidemia Take 1 tablet (40 mg) by mouth once daily. 90 tablet 3 4 11/11/19 25 Discontin ued(Reord er) clopidogrel (Plavix) 75 mg tablet Take 1 tablet (75 mg) by mouth once daily. 11/11/19 25 Discontin ued(Thera py completed ) Active Problems Problem Noted Date Diagnosed Date History of left-sided carotid endarterectomy 04/2024 Encounter for pre-operative cardiovascular clear ance 05/22/2024 Right-sided extracranial carotid artery stenosis 05/22/2024 Nonrheumatic aortic valve stenosis 11/10/2023 Encounter to discuss test results 11/10/2023 Primary hypertension 11/08/2023 Diabetes mellitus type II, non insulin dependent (Multi) 11/08/2023 Aortic valve stenosis 06/17/2023 Bilateral carotid bruits 06/17/2023 BMI 38.0-38.9,adult 06/17/2023 Elevated blood pressure read ing without diagnosis of hypertension 06/17/2023 Fatigue 06/17/2023 GERD (gastroesophageal reflux disease) Hyperlipidemia 06/17/2023 Neuropathy 06/17/2023 Never smoked tobacco 06/17/2023 At moderate risk for fall 06/17/2023 Encounters Date Type Department Care Team Description 11/10/2024 9:15 AM EDT Office Visit [address] [address] Jaleesa Cai MD Nonrheumatic aortic valve stenosis; Mitral valve stenosis and aortic valve stenosis; Mixed hyperlipidemia; Primary hypertension; Diabetes mellitus type II, non insulin dependent (Multi); Never smoked tobacco; BMI 38.0-38.9,adult 11/10/2024 Travel 11/06/2024 Orders Only [facility] [address] [place] [address] Jaleesa Cai MD 10/11/[address] [address] Emilia Martinez RN 10/11/[address] [address] Emilia Martinez RN Error (VOID this visit) 09/28/2024 Scanned Document [facility] [address] [place] [address] Scanning, Generic Provider from Last 3 Months Immunizations Immunization Administration Dates Next Due Flu vaccine, quadrivalent, h igh-dose, preservative free, age 65y+ (FLUZONE) 01/19/2024,01/26/2022 Influenza, Seasonal, Quadrivalent, Adjuvanted Influenza, seasonal, injectable 12/28/2023 Influenza, seasonal, intradermal, preservative f ree 06/21/2010 Pneumococcal conjugate vaccine, 20-valent (PREVN AR 20) 07/01/2022 Pneumococcal polysaccharide vaccine, 23-valent, age 2 years and older (PNEUMOVAX 23) 07/13/2000 Zoster vaccine, recombinant, adult (SHINGRIX) ,12/25/2022 Family [...] Mass Index 38.44 11/10/2024 9:15 AM EDT Plan of Treatment Upcoming Encounters Date Type Department Care Team (Late st Contact Info) Description 12/12/2024 8:45 AM EDT Appointment [facility] [address] [facility] [address] [place] [address] 11/12/2025 9:00 AM EDT Office Visit [facility] [address] [facility] 250 [place] [address] Jaleesa Cai MD [address] [facility] 130 [place] [address] Health Maintenance Due Date Last Done Comments Diabetes: Hemoglobin A1C 1940 Medicare Annual Wellness Visit (AWV) 1942 Diabetes: Retinopathy Screening 1952 Hepatitis A Vaccines (1 of 2 - Risk 2-dose series) 1961 DTaP/Tdap/Td Vaccines (1 - Tdap) 1964 Hepatitis B Vaccines (1 of 3 - Risk 3-dose series) 2002 RSV High Risk: (Elderly (60+) or Population) (1 - 1-dose 75+ series) 2017 COVID-19 Vaccine ( season) 2023 Diabetes: Urine Protein Screening 10/03/2024 10/04/2023 Influenza Vaccine (#1) 2024 , 12/28/2023, 12/25/2022, Additional history exists Bone Density Scan 10/24/2025 10/25/2023, , 10/20/2021 Lipid Panel 11/06/2025 11/06/2024, 10/11, 10/04/2023 Pneumococcal Vaccine Completed 07/01/2022, 07/14/19 01 Zoster Vaccines Completed 03/15/2023, 12/25/2022 HIB Vaccines [...] on patient's age to complete this topic Procedures Procedure Name Priority Date/Time Associated Diagnosis Comments [facility] COMPREHENSIVE METABOLIC PANEL Routine 11/06/2024 9:32 AM EDT LIPID PANEL Routine 11/06/2024 9:32 AM EDT from Last 3 Months Results * [facility] COMPREHENSIVE METABOLIC PANEL (11/06/2024 9:32 AM EDT) Pathologist [facility] GLUCOSE 93 65 - 99 mg/dL [facility] Comment: Fasting reference interval UREA NITROGEN (BUN) 25 7 - 25 mg/dL [facility] CREATININE 0.93 0.60 - 0.95 mg/dL [facility] EGFR 61 > OR = 60 mL/min/1. 73m2 [facility] BUN/CREATININE RATIO SEE NOTE: 6 - 22 (calc) [facility] Comment: Not Reported: BUN and Creatinine are within reference range. SODIUM 138 135 - 146 mmol/L [facility] POTASSIUM 4.8 3.5 - 5.3 mmol/L [facility] CHLORIDE 105 98 - 110 mmol/L [facility] CARBON DIOXIDE 20 20 - 32 mmol/L [facility] CALCIUM 9.0 8.6 - 10.4 mg/dL [facility] PROTEIN, TOTAL 6.5 6.1 - 8.1 g/dL [facility] ALBUMIN 3.9 3.6 - 5.1 g/dL [facility] GLOBULIN 2.6 1.9 - 3.7 g/dL (calc) [facility] ALBUMIN/GLOBULI N RATIO 1.5 1.0 - 2.5 (calc) [facility] BILIRUBIN, TOTAL 0.4 0.2 - 1.2 mg/dL [facility] ALKALINE PHOSPHATASE 93 37 - 153 U/L [facility] AST 23 10 - 35 U/L [facility] ALT 20 6 - 29 U/L [facility] 11/06/2024 9:32 AM EDT 11/06/2024 9:33 AM EDT Narrative [facility] - 11/07/2024 12:25 PM EDT FASTING:YES FASTING: YES us Jaleesa Cai MD LAB BLOOD ORDERABLES Final Resul t Performing Organization Address City/[facility]/ZIP Co de Phone Number [facility] [facility] [address] [place] [address], [address] [place] [address] * Lipid Panel (11/06/2024 9:32 AM EDT) CHOLESTEROL, TOTAL 111 <200 mg/dL [facility] HDL CHOLESTEROL 66 > OR = 50 mg/dL [facility] TRIGLYCERIDES 56 <150 mg/dL [facility] LDL-CHOLESTEROL 31 mg/dL (calc) [facility] Comment: Reference range: <100 Desirable range <100 mg/dL for primary prevention; <70 mg/dL for patients with CHD or diabetic patients with > or = 2 CHD risk factors. LDL-C is now calculated using the Parker-Adilia calculation, which is a validated novel method providing better accuracy than the Friedewald equation in the estimation of LDL-C. Parker SS et al. INDRA. 2013;310(19): 9283-6066 (http://education.DirectPointe/faq/JZM744) CHOL/HDLC RATIO 1.7 <5.0 (calc) [facility] NON HDL CHOLESTEROL 45 <130 mg/dL (calc) [facility] [employer] [facility] Comment: For patients with diabetes plus 1 major ASCVD risk factor, treating to a non-HDL-C goal of <100 mg/dL (LDL-C of <70 mg/dL) is considered a therapeutic option. 11/06/2024 9:32 AM EDT 11/06/2024 9:33 AM EDT [facility] - 11/07/2024 12:25 PM EDT FASTING:YES FASTING: YES us Jaleesa Cai MD LAB BLOOD ORDERABLES Final Resul t [facility] [employer] [facility] [address] [place] [address], [address] [place] [address] from Last 3 Months Insurance [employer] CHOICE [employer] CHOICE Care Teams Speech Language Specialist Relationship Specialty Start Date End Date Miguel Ray MD [address] [facility] 110 [place] [address] PCP - General 11/04/22
--- OUTSIDE RECORDS SUMMARY | 2024-11-16 08:31 | XMS_ITS | Encounter Summary ---
Author Organization [facility] Address [address] [facility] [place] [address] Care Team Providers Care Calender Machine Operator Name Role Phone Miguel Ray MD Unavailable [phone] Miguel Ray MD Primary Care Provider [phone] Encounter Details Date Type Department Care Team (Late Contact Info) Description 11/20/2022 Abstract [facility] [place] [facility] [address] [facility] 110 [place] [address] Miguel Ray MD [address] [facility] 110 [place] [address] Social History Tobacco Use Types Packs/Day Years [...] EDT Office Visit [facility] [address] [place] [address] Yaniv Jarrett, DPM FACFAS 368 [facility] [place] [address] 02/26/2025 9:30 AM EST Office Visit [facility] [place] [facility] [address] [place] [address] [place] [address] Miguel Ray MD [address] [facility] [address] [place] [address] documented as of this encounter Visit Diagnoses Not on filedocumented in this encounter Care Teams Calender Machine Operator Relationship Specialty Start Date End Date Miguel Ray MD [address] [facility] [address] [place] [address] PCP - [employer] 04/12/22 Miguel Ray MD [address] [facility] [address] [place] [address] PCP - General Internal Medicine 09/08/22 documented as of this encounter
--- OUTSIDE RECORDS SUMMARY | 2024-11-16 08:31 | XMS_ITS | Encounter Summary ---
Author Organization [facility] Address [address] [place] [address] Phone Care Team Providers Care Wound Care Technician Name Role Phone Miguel Ray MD Primary Care Provider [phone] Encounter Details Date Type Department Care Team (Late Contact Info) Description 05/19/2024 Scanned Document [facility] [address] [place] [address] Scanning, Generic Provider Social History [...] Info) Description 12/12/2024 8:45 AM EDT Appointment [address] [place] [address] 11/12/2025 9:00 AM EDT Office Visit [address] [place] [address] Jaleesa Cai MD 917 [facility] 130 [place], [place] [address] documented as of this encounter Visit Diagnoses Not on filedocumented in this encounter Additional Health Concerns Assessment Noted Time A fall risk assessment has been complete d for the patient 11/08/2023 10:45 AM EDT documented as of this encounter Care Teams Wound Care Technician Relationship Specialty Start Date End Date Miguel Rya MD [address] [facility] 110 [place] [address] PCP - General 11/04/22 documented as of this encounter
--- OUTSIDE RECORDS SUMMARY | 2024-11-16 08:31 | XMS_ITS | Encounter Summary ---
Author Organization [facility] Address [address] [place] [address] Care Team Providers Care Senior Backup Administrator Name Role Phone Miguel Ray MD Unavailable [phone] Miguel Ray MD Primary Care Provider [phone] Encounter Details Date Type Department Care Team (Late st Contact Info) Description 10/11/2022 Abstract [facility] [place] [facility] [address] [facility] 110 [place] [address] Miguel Ray MD [address] [place] 110 [place] [address] Social History Tobacco Use Types Packs/Day Years [...] things Not at all 10/12/2022 1:00 PM EDT Meggan Rosa LP N Feeling down, depressed, or hopeless Not at all 10/12/2022 1:00 PM EDT Meggan Rosa LP N Patient Health Questionnaire -2 Score 0 10/12/2022 1:00 PM EDT Dukles, Meggan, LP N documented as of this encounter Plan of Treatment Upcoming Encounters Date Type Department Care Team (Late st Contact Info) Description 01/18/2025 1:50 PM EDT Office Visit [facility] [address] [place] [address] Yaniv Jarrett, DPM FACFAS [address] [facility] [place] [address] 02/26/2025 9:30 AM EST Office Visit [facility] [place] [facility] [address] [facility] 110 [place] [address] Miguel Ray MD [address] [facility] 110 [place] [address] documented as of this encounter Visit Diagnoses Not on filedocumented in this encounter Care Teams Senior Backup Administrator Relationship Specialty Start Date End Date Miguel Ray MD [address] [facility] 110 [place] [address] PCP - [employer] 04/12/22 Miguel Ray MD [address] [facility] 110 [place] [address] PCP - General Internal Medicine 09/08/22 documented as of this encounter
--- OUTSIDE RECORDS SUMMARY | 2024-11-16 08:31 | XMS_ITS | Encounter Summary ---
Author Organization [facility] Address [address] [place] [address] Care Team Providers Care Post Hole Digging Machine Operator Name Role Phone Miguel Ray MD Unavailable [phone] Miguel Ray MD Primary Care Provider [phone] Encounter Details Date Type Department Care Team (Late Contact Info) Description 11/02/2022 Orders Only [facility] [place] [facility] [address] [place] 110 [place] [address] A, Unknown Practice [address] [place], [place] [address] Social History Tobacco Use Types Packs/Day Years [...] EDT Office Visit [facility] [address] [place] [address] Yaniv Jarrett, DPM FACFAS [address] [facility] [place] [address] 02/26/2025 9:30 AM EST Office Visit [facility] [place] [facility] [address] [place] [address] [place] [address] Miguel Ray MD [address] [facility] [place] [address] documented as of this encounter Procedures Procedure [...] on filedocumented in this encounter Care Teams Post Hole Digging Machine Operator Relationship Specialty Start Date End Date Miguel Ray MD [address] [place] [address] [place] [address] PCP - [employer] 04/12/22 Miguel Ray MD [address] [facility] 110 [place] [address] PCP - General Internal Medicine 09/08/22 documented as of this encounter
--- OUTSIDE RECORDS SUMMARY | 2024-11-16 08:31 | XMS_ITS | Encounter Summary ---
Author Organization [facility] Address [address] [place] [address] Care Team Providers Care Financial Aid Administrator Name Role Phone Miguel Ray MD Unavailable [phone] Miguel Ray MD Primary Care Provider [phone] Encounter Details Date Type Department Care Team (Late Contact Info) Description 01/25/2023 Abstract [facility] [place] [facility] 112 [facility] 110 [place] [address] Dorota Boyle PA 112 [facility] 110 [place] [address] Social History Tobacco Use Types Packs/Day Years [...] EDT Office Visit [facility] [address] [place] [address] Yaniv Jarrett, DPM FACFAS 368 [facility] [place] [address] 02/26/2025 9:30 AM EST Office Visit [facility] [place] Andre [address] [facility] 110 [place] [address] Miguel Ray MD [address] [facility] 110 [place] [address] documented as of this encounter Visit Diagnoses Not on filedocumented in this encounter Care Teams Financial Aid Administrator Relationship Specialty Start Date End Date Miguel Ray MD [address] [facility] 110 [place] [address] PCP - Hum[employer] 04/12/22 Miguel Ray MD [address] [facility] [address] [place] [address] PCP - General Internal Medicine 09/08/22 documented as of this encounter
--- OUTSIDE RECORDS SUMMARY | 2024-11-16 08:31 | XMS_ITS | Encounter Summary ---
Author Organization [facility] Address [address] [facility] [place] [address] Care Team Providers Care Aircraft Powertrain Repairer Name Role Phone Miguel Ray MD Unavailable [phone] Miguel Ray MD Primary Care Provider [phone] Encounter Details Date Type Department Care Team (Late Contact Info) Description 11/10/2022 Abstract [facility] [place] [facility] [address] [facility] 110 [place] [address] Miguel Ray MD [address] [facility] 110 [place] [address] Social History Tobacco Use Types Packs/Day Years [...] EDT Office Visit [facility] [address] [place] [address] Yaniv Jarrett, DPM FACFAS 368 [facility] [place] [address] 02/26/2025 9:30 AM EST Office Visit [facility] [place] [facility] [address] [place] [address] [place] [address] Miguel Ray MD [address] [facility] 110 [place] [address] documented as of this encounter Visit Diagnoses Not on filedocumented in this encounter Care Teams Aircraft Powertrain Repairer Relationship Specialty Start Date End Date Miguel Ray MD [address] [facility] 110 [place] [address] PCP - [employer] 04/12/22 Miguel Ray MD [address] [facility] 110 [place] [address] PCP - General Internal Medicine 09/08/22 documented as of this encounter
--- OUTSIDE RECORDS SUMMARY | 2024-11-16 08:31 | XMS_ITS | Encounter Summary ---
Author Organization [facility] Address [address] [facility] [place] [address] Care Team Providers Care Harmonic Analyst Name Role Phone Miguel Ray MD Unavailable [phone] Miguel Ray MD Primary Care Provider [phone] Encounter Details Date Type Department Care Team (Late Contact Info) Description 11/20/2022 Orders Only [facility] [place] [facility] [address] [facility] 110 [place] [address] Dorota Boyle, PA [address] [facility] 110 [place], [place] [address] Social History Tobacco Use Types Packs/Day Years [...] EDT Office Visit [facility] [address] [place] [address] Yaniv Jarrett, DPM FACFAS [address] [facility] [place] [address] 02/26/2025 9:30 AM EST Office Visit [facility] [place] [facility] [address] [place] [address] [place] [address] Miguel Ray MD 112 [facility] 110 [place] [address] documented as of this encounter Procedures Procedure [...] on filedocumented in this encounter Care Teams Harmonic Analyst Relationship Specialty Start Date End Date Miguel Ray MD 112 [facility] 110 [place] [address] PCP - Hum[employer] 04/12/22 Miguel Ray MD 112 [facility] 110 [place] [address] PCP - General Internal Medicine 09/08/22 documented as of this encounter
--- OUTSIDE RECORDS SUMMARY | 2024-11-16 08:31 | XMS_ITS | Encounter Summary ---
Author Organization [facility] Address [address] [facility] [place] [address] Care Team Providers Care Solution Strategist Name Role Phone Miguel Ray MD Unavailable [phone] Miguel Ray MD Primary Care Provider [phone] Encounter Details Date Type Department Care Team (Late Contact Info) Description 10/15/2022 Abstract [facility] [place] [facility] [address] [facility] 110 [place] [address] Miguel Ray MD [address] [facility] 110 [place] [address] Social History Tobacco Use Types Packs/Day Years [...] EDT Office Visit [facility] [address] [place] [address] Yaniv Jarrett, DPM FACFAS 368 [facility]Note 3[facility] [place] [address] 02/26/2025 9:30 AM EST Office Visit [facility] [place] [facility] [address] [place] [address] [place] [address] Miguel Ray MD [address] [facility] 110 [place] [address] documented as of this encounter Visit Diagnoses Not on filedocumented in this encounter Care Teams Solution Strategist Relationship Specialty Start Date End Date Miguel Ray MD [address] [facility] 110 [place] [address] PCP - Humana 04/12/22 Miguel Ray MD [address] [facility] 110 [place] [address] PCP - General Internal Medicine 09/08/22 documented as of this encounter
--- OUTSIDE RECORDS SUMMARY | 2024-11-16 08:31 | XMS_ITS | Encounter Summary ---
Author Organization [facility] Address [address] [facility] [place] [address] Care Team Providers Care Medical Office Professional Instructor Name Role Phone Miguel Ray MD Unavailable [phone] Miguel Ray MD Primary Care Provider [phone] Encounter Details Date Type Department Care Team (Late Contact Info) Description 11/04/2022 Abstract [facility] [place] [facility] [address] [facility] 110 [place] [address] Miguel Ray MD [address] [facility] 110 [place] [address] Social History Tobacco Use Types Packs/Day Years [...] EDT Office Visit [facility] [address] [place] [address] Yaniv Jarrett, DPM FACFAS 368 [facility] [place] [address] 02/26/2025 9:30 AM EST Office Visit [facility] [place] [facility] [address] [place] [address] [place] [address] Miguel Ray MD [address] [facility] 110 [place] [address] documented as of this encounter Visit Diagnoses Not on filedocumented in this encounter Care Teams Medical Office Professional Instructor Relationship Specialty Start Date End Date Miguel Rya MD [address] [facility] 110 [place] [address] PCP - Hum[employer] 04/12/22 Miguel Ray MD [address] [facility] 110 [place] [address] PCP - General Internal Medicine 09/08/22 documented as of this encounter
--- OUTSIDE RECORDS SUMMARY | 2024-11-16 08:31 | XMS_ITS | Encounter Summary ---
Author Organization [facility] Address [address] [facility] [place] [address] Care Team Providers Care Media Monitor Name Role Phone Miguel Ray MD Unavailable [phone] Miguel Ray MD Primary Care Provider [phone] Encounter Details Date Type Department Care Team (Late Contact Info) Description 10/26/2022 Abstract [facility] [place] Sharif [facility] [address] [facility] 110 [place] [address] Miguel Ray MD [address] [facility] 110 [place] [address] Social History Tobacco Use Types Packs/Day Years [...] EDT Office Visit [facility] [address] [place] [address] Yaniv Jarrett, DPM FACFAS 368 [facility] [place] [address] 02/26/2025 9:30 AM EST Office Visit [facility] [place] [facility] [address] [place] [address] [place] [address] Miguel Ray MD [address] [facility] 110 [place] [address] documented as of this encounter Visit Diagnoses Not on filedocumented in this encounter Care Teams Media Monitor Relationship Specialty Start Date End Date Miguel Ray MD [address] [facility] 110 [place] [address] PCP - [employer] 04/12/22 Miguel Ray MD [address] [facility] 110 [place] [address] PCP - General Internal Medicine 09/08/22 documented as of this encounter
--- OUTSIDE RECORDS SUMMARY | 2024-11-16 08:31 | XMS_ITS | Encounter Summary ---
Author Organization [facility] Address [address] [facility] [address] Care Team Providers Care Spark Plug Tester Name Role Phone Miguel Ray MD Unavailable [phone] Miguel Ray MD Primary Care Provider [phone] Encounter Details Date Type Department Care Team (Late Contact Info) Description 01/20/2023 Abstract [facility] [place] [facility]if [facility] [address] [facility] 110 [place] [address] Miguel Ray MD [address] [facility] 110 [place] [address] Social History Tobacco Use Types Packs/Day Years [...] EDT Office Visit [facility] [address] [place] [address] Yaniv Jarrett, DPM FACFAS 368 [facility] [place] [address] 02/26/2025 9:30 AM EST Office Visit [facility] [place] [facility] [address] [place] [address] [place] [address] Miguel Ray MD [address] [facility] 110 [place] [address] documented as of this encounter Visit Diagnoses Not on filedocumented in this encounter Care Teams Spark Plug Tester Relationship Specialty Start Date End Date Miguel Ray MD [address] [facility] 110 [place] [address] PCP - [employer] 04/12/22 Miguel Ray MD [address] [facility] 110 [place] [address] PCP - General Internal Medicine 09/08/22 documented as of this encounter
== END 2024-11-16 08:23 | disposition home or self-care (01) ==
LOC: PM 08:23
PROVIDERS: PCP Internal Medicine; Visit Provider Nurse Practitioner
DX: M47.816 Spondylosis without myelopathy or radiculopathy, lumbar region (principal); M46.1 Sacroiliitis, not elsewhere classified; M48.062 Spinal stenosis, lumbar region with neurogenic claudication
CPT/HCPCS: G0463

== ENCOUNTER 2024-11-27 10:32 | Day surgery (SDC) | payer MEDICARE, SELFPAY ==
--- OUTSIDE RECORDS SUMMARY | 2024-11-27 10:35 | XMS_ITS | Encounter Summary ---
Author Organization [facility] Address [address] [facility] [address] Care Team Providers Care Water Filtration Technician Name Role Phone Miguel Ray MD Unavailable [phone] Miguel Ray MD Primary Care Provider [phone] Encounter Details Date Type Department Care Team (Late Contact Info) Description 10/07/2023 Abstract [facility] [place] [facility] [address] [facility] 110 [place] [address] Miguel Ray MD 112 [facility] 110 [place], [place] [address] Social History Tobacco Use Types Packs/Day Years [...] EDT Office Visit [facility] 368 [place] [address] Yaniv Jarrett, DPM FACFAS [address] [facility] [place] [address] 02/26/2025 9:30 AM EST Office Visit [facility] [place] [facility] [address] [facility] 110 [place] [address] Miguel Ray MD [address] [facility] 110 [place] [address] documented as of this encounter Visit Diagnoses Not on filedocumented in this encounter Additional Health Concerns Assessment Noted Time PHQ-9 Depression Total Score: 1 09/30/19 24 10:00 AM EDT documented as of this encounter Care Teams Water Filtration Technician Relationship Specialty Start Date End Date Miguel Ray MD [address] [facility] 110 [place] [address] PCP - [employer] 04/12/22 Miguel Ray MD [address] [facility] 110 [place] [address] PCP - General Internal Medicine 09/08/22 documented as of this encounter
--- OUTSIDE RECORDS SUMMARY | 2024-11-27 10:35 | XMS_ITS | Encounter Summary ---
Author Organization [facility] Address [address] [place] [address] Care Team Providers Care Conflict Resolution Professional Name Role Phone Miguel Ray MD Unavailable [phone] Miguel Ray MD Primary Care Provider [phone] Encounter Details Date Type Department Care Team (Late Contact Info) Description 11/11/2023 Abstract [facility] [place] [facility] 112 [facility] 110 [place] [address] Miguel Ray MD 112 [facility] 110 [place], [place] [address] Social History Tobacco Use Types Packs/Day Years [...] EDT Office Visit [facility] 368 [place] [address] Yaniv Jarrett, DPM FACFAS 368 [facility] [place] [place] [address] 02/26/2025 9:30 AM EST Office Visit [facility] [place] [facility] [address] [facility] 110 [place] [address] Miguel Ray MD [address] [facility] 110 [place] [address] documented as of this encounter Visit Diagnoses Not on filedocumented in this encounter Additional Health Concerns Assessment Noted Time PHQ-9 Depression Total Score: 1 09/30/19 24 10:00 AM EDT documented as of this encounter Care Teams Conflict Resolution Professional Relationship Specialty Start Date End Date Miguel Ray MD [address] [facility] 110 [place] [address] PCP - [employer] 04/12/22 Miguel Ray MD [address] [facility] 110 [place] [address] PCP - General Internal Medicine 09/08/22 documented as of this encounter
--- OUTSIDE RECORDS SUMMARY | 2024-11-27 10:35 | XMS_ITS | Encounter Summary ---
Author Organization [facility] Address [address] [place] [address] Care Team Providers Care Snow Technician Name Role Phone Miguel Ray MD Unavailable [phone] Miguel Ray MD Primary Care Provider [phone] Encounter Details Date Type Department Care Team (Late Contact Info) Description 10/27/2024 Abstract [facility] [place] [facility] 112 [facility] 110 [place] [address] Miguel Ray MD 112 [facility] 110 [place], [place] [address] Social History Tobacco Use Types Packs/Day Years [...] EDT Office Visit [facility] [address] [place] [address] Yaniv Jarrett, DPM FACFAS 368 [facility] [place] [address] 02/26/2025 9:30 AM EST Office Visit [facility] [place] [facility] [address] [facility] 110 [place] [address] Miguel Ray MD [address] [facility] 110 [place] [address] documented as of this encounter Visit Diagnoses Not on filedocumented in this encounter Additional Health Concerns Assessment Noted Time PHQ-9 Depression Total Score: 1 09/30/19 24 10:00 AM EDT documented as of this encounter Care Teams Snow Technician Relationship Specialty Start Date End Date Miguel Rya MD [address] [facility] 110 [place] [address] PCP - [employer] 04/12/22 Miguel Ray MD [address] [facility] 110 [place] [address] PCP - General Internal Medicine 09/08/22 documented as of this encounter
--- OUTSIDE RECORDS SUMMARY | 2024-11-27 10:35 | XMS_ITS | Encounter Summary ---
Author Organization [facility] Address [address] [place] [address] Phone Care Team Providers Care Print Room Worker Name Role Phone Miguel Ray MD Primary Care Provider [phone] Encounter Details Date Type Department Care Team (Late st Contact Info) Description 11/28/2022 Scanned Document [facility] [address] [place] [address] Conversion, Onbase Social History Tobacco Use Types [...] Info) Description 12/12/2024 8:45 AM EDT Appointment [address] [place] [address] 11/12/2025 9:00 AM EDT Office Visit [address] 250 [place] [address] Jaleesa Cai MD [address] [facility] 130 [place] [address] documented as of this encounter Procedures Procedure Name Priority Date/Time Associated Diagnosis Comments ECHOCARDIOGRAM 11/28/2022 documented in this encounter Results * ECHOCARDIOGRAM (11/28/2022) Narrative 11/28/2022 Ordered by an unspecified provider. us Onbase Conversion CV ECHO PROCEDURES Final Resul t documented in this encounter Visit Diagnoses Not on filedocumented in this encounter Care Teams Print Room Worker Relationship Specialty Start Date End Date Miguel Ray MD 112 [place] [address] PCP - General 11/04/22 documented as of this encounter
--- OUTSIDE RECORDS SUMMARY | 2024-11-27 10:35 | XMS_ITS | Encounter Summary ---
Author Organization [facility] Address [address] [place] [address] Phone Care Team Providers Care Reception Agent Name Role Phone Miguel Ray MD Primary Care Provider [phone] Encounter Details Date Type Department Care Team (Late st Contact Info) Description 12/22/2022 Scanned Document [facility] [address] [place] [address] Conversion, Onbase Social History Tobacco Use Types [...] Info) Description 12/12/2024 8:45 AM EDT Appointment [address] [place] [address] 11/12/2025 9:00 AM EDT Office Visit [address] 250 [place] [address] Jaleesa Cai MD [address] [facility] 130 [place] [address] documented as of this encounter Procedures Procedure Name Priority Date/Time Associated Diagnosis Comments OUTSIDE IMAGING SCAN 12/22/2022 documented in this encounter Results * OUTSIDE IMAGING SCAN (12/22/2022) Anatomical Region Laterality Modality Other Narrative 12/22/2022 Ordered by an unspecified provider. us Onbase Conversion OUTSIDE SCAN Final Result documented in this encounter Visit Diagnoses Not on filedocumented in this encounter Care Teams Reception Agent Relationship Specialty Start Date End Date Miguel Ray MD 112 [place] [address] PCP - General 11/04/22 documented as of this encounter
--- OUTSIDE RECORDS SUMMARY | 2024-11-27 10:35 | XMS_ITS | Encounter Summary ---
Author Organization [facility] Address [address] [place] [address] Care Team Providers Care Yard Hostler Name Role Phone Miguel Ray MD Unavailable [phone] Miguel Ray MD Primary Care Provider [phone] Encounter Details Date Type Department Care Team (Late Contact Info) Description 05/19/2024 Abstract [facility] [place] [facility]if [facility] 112 [facility] 110 [place] [address] Miguel Ray MD 112 [facility] 110 [place], [place] [address] Social History Tobacco Use Types Packs/Day Years [...] EDT Office Visit [facility] [address] [place] [address] Yaniv Jarrett, DPM FACFAS 368 [facility] [place] [address] 02/26/2025 9:30 AM EST Office Visit [facility] [place] [facility] [address] [facility] 110 [place] [address] Miguel Ray MD [address] [facility] 110 [place] [address] documented as of this encounter Visit Diagnoses Not on filedocumented in this encounter Additional Health Concerns Assessment Noted Time PHQ-9 Depression Total Score: 1 09/30/19 24 10:00 AM EDT documented as of this encounter Care Teams Yard Hostler Relationship Specialty Start Date End Date Miguel Ray MD [address] [facility] 110 [place] [address] PCP - Hum[employer] 04/12/22 Miguel Ray MD [address] [facility] 110 [place] [address] PCP - General Internal Medicine 09/08/22 documented as of this encounter
--- OUTSIDE RECORDS SUMMARY | 2024-11-27 10:35 | XMS_ITS | Encounter Summary ---
Author Organization [facility] Address [address] [facility] [place] [address] Care Team Providers Care Press Operator Carbon Products Name Role Phone Miguel Ray MD Unavailable [phone] Miguel Ray MD Primary Care Provider [phone] Encounter Details Date Type Department Care Team (Late Contact Info) Description 05/19/2024 Abstract [facility] [place] Sharif [facility] 112 [facility] 110 [place] [address] Miguel Ray MD 112 [facility] 110 [place], [place] [address] Social History Tobacco Use Types Packs/Day Years [...] EDT Office Visit [facility] [address] [place] [address] Yaniv Jarrett, DPM FACFAS 368 [facility] [place] [address] 02/26/2025 9:30 AM EST Office Visit [facility] [place] [facility] [address] [facility] 110 [place] [address] Miguel Ray MD [address] [facility] 110 [place] [address] documented as of this encounter Visit Diagnoses Not on filedocumented in this encounter Additional Health Concerns Assessment Noted Time PHQ-9 Depression Total Score: 1 09/30/19 24 10:00 AM EDT documented as of this encounter Care Teams Press Operator Carbon Products Relationship Specialty Start Date End Date Miguel Ray MD [address] [facility] 110 [place] [address] PCP - Hum[employer] 04/12/22 Miguel Ray MD [address] [facility] 110 [place] [address] PCP - General Internal Medicine 09/08/22 documented as of this encounter
--- OUTSIDE RECORDS SUMMARY | 2024-11-27 10:35 | XMS_ITS | Encounter Summary ---
Author Organization [facility] Address [address] [place] [address] Care Team Providers Care Capsule Inspector Name Role Phone Miguel Ray MD Unavailable [phone] Miguel Ray MD Primary Care Provider Encounter Details Date Type Department Care Team (Late Contact Info) Description 05/17/2024 Abstract [facility] [place] [facility]if [facility] 112 [facility] 110 [place] [address] Miguel Ray MD 112 [facility] 110 [place], [place] [address] Social History Tobacco Use Types Packs/Day Years [...] EDT Office Visit [facility] 368 [place] [address] Yaniv Jarrett, DPM FACFAS 368 [facility] [place] [address] 02/26/2025 9:30 AM EST Office Visit [facility] [place] [facility] [address] [facility] 110 [place] [address] Miguel Ray MD [address] [facility] 110 [place] [address] documented as of this encounter Visit Diagnoses Not on filedocumented in this encounter Additional Health Concerns Assessment Noted Time PHQ-9 Depression Total Score: 1 09/30/19 24 10:00 AM EDT documented as of this encounter Care Teams Capsule Inspector Relationship Specialty Start Date End Date Miguel Ray MD [address] [facility] 110 [place] [address] PCP - Humana 04/12/22 Miguel Ray MD [address] [facility] 110 [place] [address] PCP - General Internal Medicine 09/08/22 documented as of this encounter
--- OUTSIDE RECORDS SUMMARY | 2024-11-27 10:35 | XMS_ITS | Encounter Summary ---
Author Organization [facility] Address [address] [facility] [place] [address] Care Team Providers Care Chief Solution Architect Name Role Phone Miguel Ray MD Unavailable [phone] Miguel Ray MD Primary Care Provider [phone] Encounter Details Date Type Department Care Team (Late Contact Info) Description 07/27/2024 Abstract [facility] [place] [facility] 112 [facility] 110 [place] [address] Miguel Ray MD [address] [place] [facility] 110 [employer], [place] [address] Social History Tobacco Use Types Packs/Day Years [...] EDT Office Visit [facility] 368 [place] [address] Yaniv Jarrett, DPM FACFAS 368 [facility] [place] [address] 02/26/2025 9:30 AM EST Office Visit [facility] [place] [facility] [address] [facility] 110 [place] [address] Miguel Ray MD [address] [facility] 110 [place] [address] documented as of this encounter Visit Diagnoses Not on filedocumented in this encounter Additional Health Concerns Assessment Noted Time PHQ-9 Depression Total Score: 1 09/30/19 24 10:00 AM EDT documented as of this encounter Care Teams Chief Solution Architect Relationship Specialty Start Date End Date Miguel Ray MD [address] [facility] 110 [place] [address] PCP - Humana 04/12/22 Miguel Ray MD [address] [facility] 110 [place] [address] PCP - General Internal Medicine 09/08/22 documented as of this encounter
--- OUTSIDE RECORDS SUMMARY | 2024-11-27 10:35 | XMS_ITS | Encounter Summary ---
Author Organization [facility] Address [address] [place] [address] Care Team Providers Care Machine Strap Buckler Name Role Phone Miguel Ray MD Unavailable [phone] Miguel Ray MD Primary Care Provider [phone] Encounter Details Date Type Department Care Team (Late Contact Info) Description 01/25/2024 Abstract [facility] [place] [facility] 112 [facility] 110 [place] [address] Miguel Ray MD 112 [facility] 110 [place], [place] [address] Social History Tobacco Use Types Packs/Day Years [...] EDT Office Visit [facility] [address] [place] [address] Yaniv Jarrett, DPM FACFAS 368 [facility] [place] [address] 02/26/2025 9:30 AM EST Office Visit [facility] [place] [facility] [address] [facility] 110 [place] [address] Miguel Ray MD [address] [facility] 110 [place] [address] documented as of this encounter Visit Diagnoses Not on filedocumented in this encounter Additional Health Concerns Assessment Noted Time PHQ-9 Depression Total Score: 1 09/30/19 24 10:00 AM EDT documented as of this encounter Care Teams Machine Strap Buckler Relationship Specialty Start Date End Date Miguel Ray MD [address] [facility] 110 [place] [address] PCP - Humana 04/12/22 Miguel Ray MD [address] [facility] 110 [place] [address] PCP - General Internal Medicine 09/08/22 documented as of this encounter
--- OUTSIDE RECORDS SUMMARY | 2024-11-27 10:35 | XMS_ITS | Encounter Summary ---
Author Organization [facility] Address [address] [place] [address] Phone Care Team Providers Care Global Upstream Marketing Manager Name Role Phone Miguel Ray MD Primary Care Provider [phone] Encounter Details Date Type Department Care Team (Late st Contact Info) Description 09/28/2024 Scanned Document [facility] [address] [place] [address] Scanning, Generic Provider Social History Tobacco Use [...] Info) Description 12/12/2024 8:45 AM EDT Appointment [address] [place] [address] 11/12/2025 9:00 AM EDT Office Visit [address] 250 [place] [address] Jaleesa Cai MD [address] [facility] 130 [place] [address] Scheduled Orders Name Type Priority Associated Diagnoses Orde r Schedule Ultrasound- OnBase Scan Imaging O rdered: 09/28/2024 documented as of this encounter Visit Diagnoses Not on filedocumented in this encounter Additional Health Concerns Assessment Noted Time A fall risk assessment has been complete d for the patient 05/22/2024 1:46 PM EST documented as of this encounter Care Teams Global Upstream Marketing Manager Relationship Specialty Start Date End Date Miguel Ray MD 112 [facility] 110 [place] [address] PCP - General 11/04/22 documented as of this encounter
--- OUTSIDE RECORDS SUMMARY | 2024-11-27 10:35 | XMS_ITS | Encounter Summary ---
Author Organization [facility] Address [address] [place] [address] Care Team Providers Care Register In Chancery Name Role Phone Miguel Ray MD Unavailable [phone] Miguel Ray MD Primary Care Provider [phone] Encounter Details Date Type Department Care Team (Late Contact Info) Description 05/22/2024 Abstract [facility] [place] [facility]if [facility] 112 [facility] 110 [place] [address] Miguel Ray MD 112 [place] [facility] 110 [place], [place] [address] Social History Tobacco Use Types Packs/Day Years [...] EDT Office Visit [facility] 368 [place] [address] Yaniv Jarrett, DPM FACFAS 368 [facility] [place] [address] 02/26/2025 9:30 AM EST Office Visit [facility] [place] [facility] [address] [facility] 110 [place] [address] Miguel Ray MD [address] [facility] 110 [place] [address] documented as of this encounter Visit Diagnoses Not on filedocumented in this encounter Additional Health Concerns Assessment Noted Time PHQ-9 Depression Total Score: 1 09/30/19 24 10:00 AM EDT documented as of this encounter Care Teams Register In Chancery Relationship Specialty Start Date End Date Miguel Ray MD [address] [facility] 110 [place] [address] PCP - Humana 04/12/22 Miguel Ray MD [address] [facility] 110 [place] [address] PCP - General Internal Medicine 09/08/22 documented as of this encounter
--- OUTSIDE RECORDS SUMMARY | 2024-11-27 10:35 | XMS_ITS | Encounter Summary ---
Author Organization [facility] Address [address] [place] [address] Care Team Providers Care Roundsman Name Role Phone Miguel Ray MD Unavailable [phone] Miguel Ray MD Primary Care Provider [phone] Encounter Details Date Type Department Care Team (Late st Contact Info) Description 07/26/2024 Abstract [facility] [place] [facility] [address] [facility] 110 [place] [address] Miguel Ray MD [address] [facility] 110 [place] [address] Social History Tobacco Use Types Packs/Day Years [...] EDT Office Visit [facility] [address] [place] [address] Yaniv Jarrett, DPM FACFAS 368 [facility] [address] 02/26/2025 9:30 AM EST Office Visit [facility] [place] [facility] [address] [facility] 110 [place] [address] Miguel Ray MD [address] [facility] 110 [place] [address] documented as of this encounter Visit Diagnoses Not on filedocumented in this encounter Additional Health Concerns Assessment Noted Time PHQ-9 Depression Total Score: 1 09/30/19 24 10:00 AM EDT documented as of this encounter Care Teams Roundsman Relationship Specialty Start Date End Date Miguel Ray MD [address] [facility] 110 [place] [address] PCP - Hum[employer] 04/12/22 Miguel Ray MD [address] [facility] 110 [place] [address] PCP - General Internal Medicine 09/08/22 documented as of this encounter
--- OUTSIDE RECORDS SUMMARY | 2024-11-27 10:35 | XMS_ITS | Encounter Summary ---
Author Organization [facility] Address [address] [place] [address] Care Team Providers Care Signal Manager Name Role Phone Miguel Ray MD Unavailable [phone] Miguel Ray MD Primary Care Provider [phone] Encounter Details Date Type Department Care Team (Late Contact Info) Description 05/30/2024 Abstract [facility] [place] [facility] 112 [facility] 110 [place] [address] Miguel Ray MD 112 [facility] 110 [place], [place] [address] Social History Tobacco Use Types Packs/Day Years [...] EDT Office Visit [facility] [address] [place] [address] Yaniv Jarrett, DPM FACFAS 368 [facility] [place] [address] 02/26/2025 9:30 AM EST Office Visit [facility] [place] [facility] [address] [facility] 110 [place] [address] Miguel Ray MD [address] [facility] 110 [place] [address] documented as of this encounter Visit Diagnoses Not on filedocumented in this encounter Additional Health Concerns Assessment Noted Time PHQ-9 Depression Total Score: 1 09/30/19 24 10:00 AM EDT documented as of this encounter Care Teams Signal Manager Relationship Specialty Start Date End Date Miguel Ray MD [address] [facility] 110 [place] [address] PCP - [employer] 04/12/22 Miguel Ray MD [address] [facility] 110 [place] [address] PCP - General Internal Medicine 09/08/22 documented as of this encounter
--- OUTSIDE RECORDS SUMMARY | 2024-11-27 10:35 | XMS_ITS | Encounter Summary ---
Author Organization [facility] Address [address] [facility] [place] [address] Care Team Providers Care Platen Grinder Name Role Phone Miguel Ray MD Unavailable Miguel Ray MD Primary Care Provider [phone] Encounter Details Date Type Department Care Team (Late Contact Info) Description 06/17/2023 Abstract [facility] [place] [facility] 112 [facility] 110 [place] [address] Miguel Ray MD [address] [facility] 110 [place], [place] [address] Social History Tobacco Use Types Packs/Day Years [...] EDT Office Visit [facility] [address] [place] [address] Yaniv Jarrett, DPM FACFAS 368 [facility] [place] [place] [address] 02/26/2025 9:30 AM EST Office Visit [facility] [place] [facility] [address] [facility] 110 [place] [address] Miguel Ray MD [address] [facility] 110 [place] [address] documented as of this encounter Visit Diagnoses Not on filedocumented in this encounter Care Teams Platen Grinder Relationship Specialty Start Date End Date Miguel Ray MD [address] [facility] 110 [place] [address] PCP - [employer] 04/12/22 Miguel Ray MD [address] [facility] 110 [place] [address] PCP - General Internal Medicine 09/08/22 documented as of this encounter
--- OUTSIDE RECORDS SUMMARY | 2024-11-27 10:35 | XMS_ITS | Encounter Summary ---
Author Organization [facility] Address [address] [place] [address] Phone Care Team Providers Care Admitting Coordinator Name Role Phone Miguel Ray MD Primary Care Provider [phone] Encounter Details Date Type Department Care Team (Late st Contact Info) Description 10/19/2022 Orders Only [facility] [address] [place] [place] [address] Conversion, Onbase Social History Tobacco Use Types [...] Description 12/12/2024 8:45 AM EDT Appointment [address] [place] [address] 11/12/2025 9:00 AM EDT Office Visit [address] 250 [place] [address] Jaleesa Cai MD [address] [facility] 130 [place], [place] [address] Scheduled Orders Name Type Priority Associated Diagnoses Orde r Schedule OUTSIDE LAB SCAN Lab Ordered: 10/19/2022 documented as of this encounter Visit Diagnoses Not on filedocumented in this encounter Care Teams Admitting Coordinator Relationship Specialty Start Date End Date Miguel Ray MD [address] [place] [address] 110 [place] [address] PCP - General 11/04/22 documented as of this encounter
--- OUTSIDE RECORDS SUMMARY | 2024-11-27 10:35 | XMS_ITS | Encounter Summary ---
Author Organization [facility] Address [address] [place] [address] Care Team Providers Care Structural Architect Name Role Phone Miguel Ray MD Unavailable [phone] Miguel Ray MD Primary Care Provider [phone] Encounter Details Date Type Department Care Team (Late Contact Info) Description 06/28/2024 Abstract [facility] [place] [facility] 112 [facility] 110 [place] [address] Miguel Ray MD [address] [facility] 110 [place], [place] [address] Social History Tobacco Use Types Packs/Day Years [...] EDT Office Visit [facility] [address] [place] [address] Yaniv Jarrett, DPM FACFAS 368 [facility] [place] [address] 02/26/2025 9:30 AM EST Office Visit [facility] [place] [facility] [address] [facility] 110 [place] [address] Miguel Ray MD [address] [facility] 110 [place] [address] documented as of this encounter Visit Diagnoses Not on filedocumented in this encounter Additional Health Concerns Assessment Noted Time PHQ-9 Depression Total Score: 1 09/30/19 24 10:00 AM EDT documented as of this encounter Care Teams Structural Architect Relationship Specialty Start Date End Date Miguel Ray MD [address] [facility] 110 [place] [address] PCP - [employer] 04/12/22 Miguel Ray MD [address] [facility] 110 [place] [address] PCP - General Internal Medicine 09/08/22 documented as of this encounter
--- OUTSIDE RECORDS SUMMARY | 2024-11-27 10:35 | XMS_ITS | Encounter Summary ---
Author Organization [facility] Address [address] [facility] [place] [address] Care Team Providers Care Diamond Setter Apprentice Name Role Phone Miguel Ray MD Unavailable [phone] Miguel Ray MD Primary Care Provider Encounter Details Date Type Department Care Team (Late Contact Info) Description 11/13/2024 Abstract [facility] [place] [facility] 112 [facility] 110 [place] [address] Miguel Ray MD 112 [facility] 110 [place], [place] [address] Social History Tobacco Use Types Packs/Day Years [...] EDT Office Visit [facility] 368 [place] [address] Yaniv Jarrett, DPM FACFAS 368 [facility] [place] [address] 02/26/2025 9:30 AM EST Office Visit [facility] [place] [facility] [address] [facility] 110 [place] [address] Miguel Ray MD [address] [facility] 110 [place] [address] documented as of this encounter Visit Diagnoses Not on filedocumented in this encounter Additional Health Concerns Assessment Noted Time PHQ-9 Depression Total Score: 1 09/30/19 24 10:00 AM EDT documented as of this encounter Care Teams Diamond Setter Apprentice Relationship Specialty Start Date End Date Miguel Ray MD [address] [facility] 110 [place] [address] PCP - [employer] 04/12/22 Miguel Ray MD [address] [facility] 110 [place] [address] PCP - General Internal Medicine 09/08/22 documented as of this encounter
--- OUTSIDE RECORDS SUMMARY | 2024-11-27 10:35 | XMS_ITS | Encounter Summary ---
Author Organization [facility] Address [address] [facility] [place] [address] Care Team Providers Care Process Safety Specialist Name Role Phone Miguel Ray MD Unavailable [phone] Miguel Ray MD Primary Care Provider [phone] Encounter Details Date Type Department Care Team (Late Contact Info) Description 07/08/2023 Abstract [facility] [place] [facility] 112 [facility] 110 [place] [address] Miguel Ray MD 112 [facility] 110 [place], [place] [address] Social History Tobacco Use Types Packs/Day Years [...] EDT Office Visit [facility] [address] [place] [address] Yaniv Jarrett, DPM FACFAS 368 [facility] [place] [address] 02/26/2025 9:30 AM EST Office Visit [facility] [place] [facility] [address] [facility] 110 [place] [address] Miguel Ray MD [address] [facility] 110 [place] [address] documented as of this encounter Visit Diagnoses Not on filedocumented in this encounter Care Teams Process Safety Specialist Relationship Specialty Start Date End Date Miguel Ray MD [address] [facility] 110 [place] [address] PCP - [employer] 04/12/22 Miguel Ray MD [address] [facility] 110 [place] [address] PCP - General Internal Medicine 09/08/22 documented as of this encounter
--- OUTSIDE RECORDS SUMMARY | 2024-11-27 10:36 | XMS_ITS | Clinical Summary ---
Author Organization [facility] Address [address] [place] [address] Care Team Providers Care Service Desk Director Name Role Phone Miguel Ray MD Unavailable [phone] Miguel Ray MD Primary Care Provider [phone] Allergies Active Allergy Reactions Criticality Noted Date [...] Department Care Team Description 11/13/2024 Abstract [facility] [address] [place] 110 [place] [address] Miguel Ray MD 11/09/2024 1:10 PM EDT Office Visit [facility] [address] [place] [address] Yaniv Jarrett, DPM FACFAS Onychomycosis (Primary Dx); Type II diabetes mellitus with neurological manifestations (HCC); Pain in right toe(s); Pain in left toe(s) 11/09/2024 Bamboo flowsheet [facility] [address] [place] [address] Yaniv Jarrett, DPM FACFAS 11/01/2024 Refill [facility] [place] [facility] [address] [facility] 110 [place] [address] Shannan Orr MA Polyneuropathy associated with underlying disease (HCC) 10/27/2024 Abstract [facility] [place] [facility] [address] [facility] 110 [place] [address] Miguel Ray MD 10/25/2024 9:30 AM EDT Office Visit [facility] [place] [facility] [address] 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 110 [place] [address] Miguel Ray MD 10/25/2024 Travel 10/04/2024 Refill [facility] [place] [facility] [address] [facility] 110 [place] [address] Miguel Ray MD Osteopenia after menopause 09/29/2024 Abstract [facility] [place] [facility] [address] [facility] 110 [place] [address] Miguel Ray MD 09/12/2024 Clinisync Result Encounter NOMS External Department Unsolicited Provider, Generic External Data 08/31/2024 1:00 PM EDT Office Visit [facility] [address] [place] [address] Yaniv Jarrett, DPM FACFAS Onychomycosis (Primary Dx); Type II diabetes mellitus with neurological manifestations (HCC); Pain in right toe(s); Pain in left toe(s) 08/31/2024 Bamboo flowsheet [facility] [address] [place] [address] Yaniv Jarrett, DPM FACFAS from Last 3 Months Immunizations Immunization Administration [...] EDT Office Visit [facility] [address] [place] [address] Yaniv Jarrett, DPM FACFAS 368 [facility] [place] [address] 02/26/2025 9:30 AM EST Office Visit [facility] [place] [facility] [address] [facility] 110 [place] [address] Miguel Ray MD [address] [place] [facility] 110 [place], [place] [address] Health Maintenance Due Date Last Done Comments Diabetes: Hemoglobin A1C 09/14/2024 025, 01/19/2024, 10/18/2023, Additional history exists Diabetes: Urine Protein Screening 10/03/2024 10/04/2023, 01/26/2023, 10/08/2021, Additional history exists Influenza Vaccine (#1) 2024 4, 12/28/2023, 12/25/2022, Additional history exists Diabetes: Retinopathy Screening 05/19/2025 [...] LUMBAR SPINE WO CON 11:51 AM EDT POCT GLYCATED HEMOGLOBIN, TOTAL Routine [...] Performing Organization Information Site ID: QPT Name: [facility] Address: [address] [place] [address], [address] [place] [phone] Director: Miky Ruby MD us Miguel Ray MD LAB BLOOD ORDERABLES Final Res ult [facility] * (ABNORMAL) CBC and differential (11/06/2024 9:28 AM EDT) WHITE BLOOD CELL COUNT 7.5 3.8 - [...] Performing Organization Information Site ID: QPT Name: [facility] Address: [address] [place] [address], [address] [place] [phone] Director: Miky Ruby MD us Miguel Ray MD LAB BLOOD ORDERABLES Final Res ult [facility] * T4, free (11/06/2024 9:28 AM EDT) T4, FREE 1.0 0.8 - 1.8 ng/dL [facility] 11/06/2024 9:28 AM EDT 11/06/2024 9:28 AM EDT Narrative [facility] - 11/07/2024 9:22 AM EDT FASTING:YES FASTING: YES Resulting Agency Comment Performing Organization Information Site ID: QPT Name: [facility] Address: [address] [place] [address], [address] [place] [phone] Director: Miky Ruyb MD us Miguel Ray MD LAB BLOOD ORDERABLES Final Res ult [facility] * Lipid panel (11/06/2024 9:28 AM EDT) CHOLESTEROL, TOTAL 111 <200 mg/dL [facility] HDL [...] LDL-C. Parker SS et al. INDRA. 2013;310(19): 1086-4015 (http://education.[employer].ZipZap/faq/ERD951) CHOL/HDLC RATIO 1.7 <5.0 (calc) [facility] NON [...] Performing Organization Information Site ID: QPT Name: [facility] Address: [address] [facility], [address] [place] [address] Director: Miky Ruby MD us Miguel Ray MD LAB BLOOD ORDERABLES Final Res ult [facility] * (ABNORMAL) Comprehensive metabolic panel (11/06/2024 9:28 AM EDT) [facility] Glucose 93 65 - 99 mg/dL [facility] [...] Performing Organization Information Site ID: QPT Name: [facility] Address: [address] [facility], 4 [place] [address] Director: Miky Ruby MD us Miguel Ray MD LAB BLOOD ORDERABLES Final Res ult [facility] * MR LUMBAR SPINE WO CON (09/12/2024 11:51 AM EDT) Anatomical Region Laterality Modality Other 09/12/2024 11:5 1 AM EDT Narrative 09/12/2024 11:54 AM EDT [address] [address] Magnetic Resonance Report Signed Patient: VICKY RUSSELL MR#: [id number] : 1940 Acct:[id number] Age/Sex: 83 / F ADM Date: 09/12/24 Loc: MRI Attending Dr: Esme Padilla NP Ordering Physician: Esme Padilla NP Date of Service: 09/12/24 Procedure(s): MR lumbar spine wo con Accession Number(s): [id number] cc: MIGUEL RAY ; Esme Padilla NP [place] [id number] Patient Name: VICKY RUSSELL MRN: [id number] date: 1940 Sex: F Assigned Patient Location: MRI Current Patient Location: MRI Accession/Order Number: [id number] Exam Date: 09/12/2024 11:46 Report Date: 09/12/2024 [...] 09/12/2024 11:51 AM Dictation Location: [place] [address] Electronically authenticated by: [id number] Y Date: 09/12/2024 11:51 Dictated By: Nikita Dean M.D. Signed By: 09/12/24 1154 DD/ 1151 TD/TT: Adjunct Lecturer: Procedure Note Radiology, Radiologist, MD - 09/12/2024 [facility] [place] [id number] Magnetic Resonance Report Signed Patient: VICKY RUSSELL SMR#: [id number] : 1940cct:[id number] Age/Sex: 83 / FADM Date: 09/12/24 Loc: MRI Attending Dr: Esme Padilla NP Ordering Physician: Esme Padilla NP Date of Service: 09/12/24 Procedure(s): MR lumbar spine wo con Accession Number(s): [id number] cc: MIGUEL RAY ; Esme Padilla NP [place] [address] Patient Name: VICKY RUSSELL MRN: [id number] date: 1940 Sex: F Assigned Patient Location: MRI Current Patient Location: MRI Accession/Order Number: [id number] Exam Date: 09/12/2024 11:46 Report Date: 09/12/2024 [...] 09/12/2024 11:51 AM Dictation Location: [place] [address] Electronically authenticated by: [id number] Y Date: 1:51 Dictated By: Nikita Dean M.D. Signed By:09/12/24 1154 DD/ 1151 TD/TT: Adjunct Lecturer: us Generic External Data Provider [facility] Final Result * POCT Glycated hemoglobin, total (06/14/2024 11:36 AM EST) Hemoglobin A1C 6.2 Blood 06/14/2024 11:3 6 AM EST us Miguel Ray MD POINT OF CARE TEST ENTER/EDIT ORDERABLES Final Result * (ABNORMAL) Diabetic Retinopathy Screening - OU - Both Eyes (05/19/2024) RESULTS abn Anatomical Region Laterality Modality Head Other 05/19/2024 us Miguel Ray MD OPHTH PHOTOGRAPHY Final Result [...] Performing Organization Information Site ID: QPT Name: [facility] Address: [address] [place] [address], [address] [place] [phone] Director: Miky Ruby MD us Aisha Okeefe NP LAB URINE ORDERABLES Final Resul t [facility] from Last 3 Months or Most Recently Relevant to Health Maintenance Insurance [employer]AGE Care Teams Service Desk Director Relationship Specialty Start Date End Date Miguel Ray MD [address] [facility] 110 [place] [address] PCP - [facility] 04/12/22 Miguel Ray MD [address] [facility] 110 [place] [address] PCP - General Internal Medicine 09/08/22
--- OUTSIDE RECORDS SUMMARY | 2024-11-27 10:36 | XMS_ITS | Encounter Summary ---
Author Organization [facility] Address [address] [facility] [place] [address] Care Team Providers Care Neon Sign Installer Name Role Phone Miguel Ray MD Unavailable [phone] Miguel Ray MD Primary Care Provider [phone] Encounter Details Date Type Department Care Team (Late Contact Info) Description 11/20/2022 Abstract [facility] [place] [facility] [address] [facility] 110 [place] [address] Miguel Ray MD [address] [facility] 110 [place] [address] Social History Tobacco Use Types Packs/Day Years [...] EDT Office Visit [facility] [address] [place] [address] Yaniv Jarrett, DPM FACFAS 368 [facility] [place] [address] 02/26/2025 9:30 AM EST Office Visit [facility] [place] [facility] [address] [place] [address] [place] [address] Miguel Ray MD [address] [facility] 110 [place] [address] documented as of this encounter Visit Diagnoses Not on filedocumented in this encounter Care Teams Neon Sign Installer Relationship Specialty Start Date End Date Miguel Ray MD [address] [facility] [address] [place] [address] PCP - [employer] 04/12/22 Miguel Ray MD [address] [facility] [address] [place] [address] PCP - General Internal Medicine 09/08/22 documented as of this encounter
--- OUTSIDE RECORDS SUMMARY | 2024-11-27 10:36 | XMS_ITS | Encounter Summary ---
Author Organization [facility] Address [address] [place] [address] Care Team Providers Care Solution Analyst Name Role Phone Miguel Ray MD Unavailable [phone] Miguel Ray MD Primary Care Provider [phone] Encounter Details Date Type Department Care Team (Late Contact Info) Description 11/20/2022 Orders Only [facility] [place] [facility] [address] [facility] 110 [place] [address] Dorota Boyle, PA [address] [facility] 110 [place], [place] [address] Social History Tobacco Use Types Packs/Day Years [...] EDT Office Visit [facility] [address] [place] [address] Yaniv Jarrett, DPM FACFAS 368 [facility] [place] [place] [address] 02/26/2025 9:30 AM EST Office Visit [facility] [place] [facility] [address] [place] [address] [place] [address] Miguel Ray MD 112 [facility] [address] [place] [address] documented as of this encounter Procedures Procedure [...] filedocumented in this encounter Care Teams Solution Analyst Relationship Specialty Start Date End Date Miguel Ray MD 112 [facility] [address] [place] [address] PCP - [employer] 04/12/22 Miguel Ray MD 112 [facility] [address] [place] [address] PCP - General Internal Medicine 09/08/22 documented as of this encounter
--- OUTSIDE RECORDS SUMMARY | 2024-11-27 10:36 | XMS_ITS | Encounter Summary ---
Author Organization [facility] Address [address] [place] [address] Care Team Providers Care Emt Intermediate Name Role Phone Miguel Ray MD Unavailable [phone] Miguel Ray MD Primary Care Provider [phone] Encounter Details Date Type Department Care Team (Late Contact Info) Description 11/02/2022 Orders Only [facility] [place] [facility] [address] [place] 110 [place] [address] A, Unknown Practice [address] [place], [place] [address] Social History Tobacco Use Types Packs/Day Years [...] EDT Office Visit [facility] 368 [place] [address] Yaniv Jarrett, DPM FACFAS [address] [facility] [place] [address] 02/26/2025 9:30 AM EST Office Visit [facility] [place] [facility] [address] [place] 110 [place] [address] Miguel Ray MD [address] [place] [address] documented as of this encounter Procedures Procedure [...] on filedocumented in this encounter Care Teams Emt Intermediate Relationship Specialty Start Date End Date Miguel Ray MD [address] [place] [address] [place] [address] PCP - [employer] 04/12/22 Miguel Ray MD [address] [facility] 110 [place] [address] PCP - General Internal Medicine 09/08/22 documented as of this encounter
--- OUTSIDE RECORDS SUMMARY | 2024-11-27 10:36 | XMS_ITS | Encounter Summary ---
Author Organization [facility] Address [address] [facility] [place] [address] Care Team Providers Care Metal Grader Name Role Phone Miguel Ray MD Unavailable [phone] Miguel Ray MD Primary Care Provider [phone] Encounter Details Date Type Department Care Team (Late Contact Info) Description 10/15/2022 Abstract [facility] [place] [facility] [address] [facility] 110 [place] [address] Miguel Ray MD [address] [facility] 110 [place] [address] Social History Tobacco Use Types Packs/Day Years [...] EDT Office Visit [facility] 368 [place] [address] Yaniv Jarrett, DPM FACFAS 368 [place] [address] 02/26/2025 9:30 AM EST Office Visit [facility] [place] [facility] [address] [place] [address] [place] [address] Miguel Ray MD [address] [facility] 110 [place] [address] documented as of this encounter Visit Diagnoses Not on filedocumented in this encounter Care Teams Metal Grader Relationship Specialty Start Date End Date Miguel Ray MD [address] [facility] 110 [place] [address] PCP - [employer] 04/12/22 Miguel Ray MD [address] [facility] [address] [place] [address] PCP - General Internal Medicine 09/08/22 documented as of this encounter
--- OUTSIDE RECORDS SUMMARY | 2024-11-27 10:36 | XMS_ITS | Encounter Summary ---
Author Organization [facility] Address [address] [facility] [address] Care Team Providers Care Tail Worker Name Role Phone Miguel Ray MD Unavailable [phone] Miguel Ray MD Primary Care Provider [phone] Encounter Details Date Type Department Care Team (Late Contact Info) Description 01/20/2023 Abstract [facility] [place] [facility] [address] [facility] 110 [place] [address] Miguel Ray MD [address] [facility] 110 [place] [address] Social History Tobacco Use Types Packs/Day Years [...] EDT Office Visit [facility] [address] [place] [address] Yaniv Jarrett, DPM FACFAS [address] [facility] [place] [address] 02/26/2025 9:30 AM EST Office Visit [facility] [place] [facility] [address] [place] [address] [place] [address] Miguel Ray MD [address] [facility] 110 [place] [address] documented as of this encounter Visit Diagnoses Not on filedocumented in this encounter Care Teams Tail Worker Relationship Specialty Start Date End Date Miguel Ray MD [address] [facility] 110 [place] [address] PCP - Humana 04/12/22 Miguel Ray MD [address] [facility] [address] [place] [address] PCP - General Internal Medicine 09/08/22 documented as of this encounter
--- OUTSIDE RECORDS SUMMARY | 2024-11-27 10:36 | XMS_ITS | Encounter Summary ---
Author Organization [facility] Address [address] [facility] [place] [address] Care Team Providers Care Line Lead Name Role Phone Miguel Ray MD Unavailable [phone] Miguel Ray MD Primary Care Provider [phone] Encounter Details Date Type Department Care Team (Late Contact Info) Description 11/17/2022 Abstract [facility] [place] [facility] [address] [facility] 110 [place] [address] Miguel Ray MD [address] [facility] 110 [place] [address] Social History Tobacco Use Types Packs/Day Years [...] Office Visit [facility] [address] [place] [address] Yaniv Jarrett, DPM FACFAS [address] [facility] [place] [address] 02/26/2025 9:30 AM EST Office Visit [facility] [place] [facility] [address] [place] [address] [place] [address] Miguel Ray MD [address] [facility] 110 [place] [address] documented as of this encounter Visit Diagnoses Not on filedocumented in this encounter Care Teams Line Lead Relationship Specialty Start Date End Date Miguel Ray MD [address] [facility] 110 [place] [address] PCP - Humana 04/12/22 Miguel Ray MD [address] [facility] 110 [place] [address] PCP - General Internal Medicine 09/08/22 documented as of this encounter
--- OUTSIDE RECORDS SUMMARY | 2024-11-27 10:36 | XMS_ITS | Clinical Summary ---
Author Organization [facility] Address [address] [place] [address] Care Team Providers Care Piping Blocker Name Role Phone Cory BATEMAN MD, Miguel [...] this topic Medical Devices Implanted Type Area Founding Partner Device Identifier Shelf Expiration Date Model / Serial / Lot Palacos R + G Cement With Gentamicin Implanted:Qty: 1 on 01/25/2017 by Kirill Garcia MD at [facility] Right: Knee 03/11/2020-1113-140 -01 / / [id number] Description:Palacos r + g osvaldo ne cement with gentamicin Lot [id number] CA no [id number] Exp 2020-03-11 Stonewall Stem Fluted Implanted:Qty: 1 on 01/25/2017 by Kirill Garcia MD at [facility] Right: Knee DEPUY 08/09/2025 86-7430 / / [id number] Stonewall Femoral Sleeve Full Porous Implanted:Qty: 1 on 01/25/2017 by Kirill Garcia MD at [facility] Right: Knee DEPUY 03/11/2026 1294-53-226 / / [id number] Posterior Augment Combo Implanted:Qty: 1 on 01/25/2017 by Kirill Garcia MD at [facility] Right: Knee DEPUY 12/10/2025 [id number] / / [id number] Sigma Femoral Adapter Fulshear Implanted:Qty: 1 on 01/25/2017 by Kirill Garcia MD at [facility] Right: Knee DEPUY 12/10/2026 96-0784 / / [id number] Sigma Femoral Adapter Implanted:Qty: 1 on 01/25/2017 by Kirill Garcia MD at [facility] Right: Knee DEPUY 2026 96-0781 / / [id number] M.B.T Revision Step Wedge Implanted:Qty: 1 on 01/25/2017 by Kirill Garcia MD at [facility] Right: Knee DEPUY 07/10/2022 1294-56-130 / / [id number] Tibial Tray Rotating Platform M.B.T. Revision Implanted:Qty: 1 on 01/25/2017 by Kirill Garcia MD at [facility] Right: Knee DEPUY 04/11/2026 1294-35-130 / / [id number] Palacos R + G Bone Cement With Gentamicin Implanted:Qty: 1 on 01/25/2017 by Kirill Garcia MD at [facility] Right: Knee 06/09/2020-1113-140 -01 / / Description:Palacos r + g osvaldo ne cement with gentamicin Lot [id number] Cat no [id number] Exp 06-09-2020 Palacos R + G Bone Cement With Gentamicin Implanted:Qty: 1 on 01/25/2017 by Kirill Garcia MD at [facility] Right: Knee 03/11/2020 CAT 00-1113-140 -01 / / [id number] Description:Palacos r + g osvaldo ne cement with gentamicin Lot [id number] Exp 2020-03-11 Cat no [id number] Stonewall Stem Fluted Implanted:Qty: 1 on 01/25/2017 by Kirill Garcia MD at [facility] Right: Knee 2026 86-7414 / / [id number] Description:UNIVERSAL STEM F LUTED 75MM X 14MM REF 86-7414 LOT [id number] Sigma Tibial Insert Rotating Platform Tc3 Implanted:Qty: 1 on 01/25/2017 by Kirill Garcia MD at [facility] Right: Knee DEPUY 08/10/2019 96-2348 / / [id number] Distal Augment Combo Implanted:Qty: 1 on 01/25/2017 by Kirill Garcia MD at [facility] Right: Knee DEPUY 09/09/2024 96-0892 / / [id number] Posterior Augment Combo Implanted:Qty: 1 on 01/25/2017 by Kirill Garcia MD at [facility] Right: Knee DEPUY 2024 96-0888 / / [id number] Oval Dome Patella 3 Peg Implanted:Qty: 1 on 01/25/2017 by Kirill Garcia MD at [facility] Right: Knee DEPUY 95-0102 / / [id number] Sigma Femoral Tc3 Cemented Implanted:Qty: 1 on 01/25/2017 by Kirill Garcia MD at [facility] Right: Knee DEPUY 05/12/2025 / / [id number] Insurance Medicare A and B Advance Directives For more information, please contact: [phone] (7:30 AM - 6PM [facility], Wednesday-Wednesday) * Full Code (Latest Code Status on File) Date Activated Date Inactivated Comments 01/25/2017 4:47 PM 01/28/2017 8:13 PM * Full Code Date Activated Date Inactivated Comments 01/25/2017 12:13 PM 01/25/2017 4:47 PM Care Teams Piping Blocker Relationship Specialty Start Date End Date Miguel Ray II, MD [address] [place] [address] PCP - General Internal Medicine 01/06/17
--- OUTSIDE RECORDS SUMMARY | 2024-11-27 10:36 | XMS_ITS | Encounter Summary ---
Author Organization [facility] Address [address] [place] [address] Phone Care Team Providers Care Hand Fabric Cutter Name Role Phone Miguel Ray MD Primary Care Provider [phone] Encounter Details Date Type Department Care Team (Late Contact Info) Description 05/19/2024 Scanned Document [facility] [address] [place] [address] Scanning, Generic Provider Social History [...] Info) Description 12/12/2024 8:45 AM EDT Appointment [address] [place] [address] 11/12/2025 9:00 AM EDT Office Visit [address] [place] [address] Jaleesa Cai MD [address] [facility] 130 [place], [place] [address] documented as of this encounter Visit Diagnoses Not on filedocumented in this encounter Additional Health Concerns Assessment Noted Time A fall risk assessment has been complete d for the patient 11/08/2023 10:45 AM EDT documented as of this encounter Care Teams Hand Fabric Cutter Relationship Specialty Start Date End Date Miguel Ray MD [address] [facility] 110 [place] [address] PCP - General 11/04/22 documented as of this encounter
--- OUTSIDE RECORDS SUMMARY | 2024-11-27 10:36 | XMS_ITS | Clinical Summary ---
Author Organization [facility] Address [address] [address] Phone Care Team Providers Care Registered Pharmacist Name Role Phone Miguel Ray MD Primary Care Provider [phone] Allergies Active Allergy Reactions Criticality Noted Date [...] Description 11/10/2024 9:15 AM EDT Office Visit [address] [address] Jaleesa Cai MD Nonrheumatic aortic valve stenosis; Mitral valve stenosis and aortic valve stenosis; Mixed hyperlipidemia; Primary hypertension; Diabetes mellitus type II, non insulin dependent (Multi); Never smoked tobacco; BMI 38.0-38.9,adult 11/10/2024 Travel 11/06/2024 Orders Only [facility] [address] [place] [address] Jaleesa Cai MD 10/11/[address] [address] Emilia Martinez RN 10/11/[address] [address] Emilia Martinez RN Error (VOID this visit) 09/28/2024 Scanned Document [facility] [address] Virtual [place] [address] Scanning, Generic Provider from Last [...] Info) Description 12/12/2024 8:45 AM EDT Appointment [facility] [address] [facility] [address] [place] [address] 11/12/2025 9:00 AM EDT Office Visit [facility] [address] [facility] 250 [place] [address] Jaleesa Cai MD [address] [facility] 130 [place] [address] Health Maintenance Due Date Last Done Comments [...] METABOLIC PANEL (11/06/2024 9:32 AM EDT) Pathologist [facility] GLUCOSE 93 65 - 99 mg/dL [facility] Comment: Fasting reference interval UREA NITROGEN (BUN) 25 7 - 25 mg/dL [facility] CREATININE 0.93 0.60 - 0.95 mg/dL [facility] EGFR 61 > OR = 60 mL/min/1. 73m2 [facility] BUN/CREATININE RATIO SEE NOTE: 6 - 22 (calc) [facility] Comment: Not Reported: BUN and Creatinine are within reference range. SODIUM 138 135 - 146 mmol/L [facility] POTASSIUM 4.8 3.5 - 5.3 mmol/L [facility] CHLORIDE 105 98 - 110 mmol/L [facility] CARBON DIOXIDE 20 20 - 32 mmol/L [facility] CALCIUM 9.0 8.6 - 10.4 mg/dL [facility] PROTEIN, TOTAL 6.5 6.1 - 8.1 g/dL [facility] ALBUMIN 3.9 3.6 - 5.1 g/dL [facility] GLOBULIN 2.6 1.9 - 3.7 g/dL (calc) [facility] ALBUMIN/GLOBULI N RATIO 1.5 1.0 - 2.5 (calc) [facility] BILIRUBIN, TOTAL 0.4 0.2 - 1.2 mg/dL [facility] ALKALINE PHOSPHATASE 93 37 - 153 U/L [facility] AST 23 10 - 35 U/L [facility] ALT 20 6 - 29 U/L [facility] 11/06/2024 9:32 AM EDT 11/06/2024 9:33 AM EDT Narrative [facility] - 11/07/2024 12:25 PM EDT FASTING:YES FASTING: YES us Jaleesa Cai MD LAB BLOOD ORDERABLES Final Resul t Performing Organization Address City/[facility]/ZIP Co de Phone Number [facility] [employer] [facility] [address] [place] [address], [address] [place] [address] * Lipid Panel (11/06/2024 9:32 AM EDT) CHOLESTEROL, TOTAL 111 <200 mg/dL [facility] HDL CHOLESTEROL 66 > OR = 50 mg/dL [facility] TRIGLYCERIDES 56 <150 mg/dL [facility] LDL-CHOLESTEROL 31 mg/dL (calc) [facility] Comment: Reference range: <100 Desirable range <100 mg/dL for primary prevention; <70 mg/dL for patients with CHD or diabetic patients with > or = 2 CHD risk factors. LDL-C is now calculated using the Parker-Adilia calculation, which is a validated novel method providing better accuracy than the Friedewald equation in the estimation of LDL-C. Parker SS et al. INDRA. 2013;310(19): 2556-7193 (http://education.ProjectSpeaker/faq/FRA545) CHOL/HDLC RATIO 1.7 <5.0 (calc) [facility] NON HDL CHOLESTEROL 45 <130 mg/dL (calc) [facility] Comment: For patients with diabetes plus 1 major ASCVD risk factor, treating to a non-HDL-C goal of <100 mg/dL (LDL-C of <70 mg/dL) is considered a therapeutic option. 11/06/2024 9:32 AM EDT 11/06/2024 9:33 AM EDT [facility] - 11/07/2024 12:25 PM EDT FASTING:YES FASTING: YES us Jaleesa Cai MD LAB BLOOD ORDERABLES Final Resul t [facility] [employer] [facility] [address] [place] [address], [address] [place] [address] from Last 3 Months Insurance [employer] CHOICE [employer] Care Teams Registered Pharmacist Relationship Specialty Start Date End Date Miguel Ray MD [address] [facility] 110 [place] [address] PCP - General 11/04/22
--- OUTSIDE RECORDS SUMMARY | 2024-11-27 10:36 | XMS_ITS | Clinical Summary ---
Author Organization [facility] Address [address] [place], [place] [address] Care Team Providers Care Key Bed Installer Name Role Phone Cory BATEMAN MD, Miguel Mendoza Primary Care Provider [phone] Allergies Active Allergy Reactions Criticality Noted Date Comments Penicillins Rash,Hives,Itching 01/24/2013 Medications metFORMIN 1,000 mg tablet Take 1 tablet by mouth once daily. 10/27/19 14 Active hydroxychloroquin e (PLAQUENIL) 200 mg tabletIndications :Erosive osteoarthritis of multiple sites take one tab twice a day with a meal, sunscreen when outdoors, see laminate floor installer every 6-12months while on med 180 tablet [...] COMP METABOLIC PANEL (07/22/2016 12:55 PM EDT) [facility] Protein, Total 7.2 6.3 - 8.0 g/dL 07/22/2016 11:05 PM [facility] Albumin 3.8(L) 3.9 - 4.9 g/dL 07/22/2016 11:05 PM [facility] Calcium 9.9 8.5 - 10.2 mg/dL 07/22/2016 11:05 PM [facility] Bilirubin, Total 0.4 0.2 - 1.3 mg/dL 07/22/2016 11:05 PM [facility] Alkaline Phosphatase 77 32 - 117 U/L 07/22/2016 11:05 PM [facility] AST 20 13 - 35 U/L 07/22/2016 11:05 PM [facility] Glucose 108(H) 74 - 99 mg/dL 07/22/2016 11:05 PM [facility] Comment: The [place] Diabetes Association (ADA) provides guidance for cutoff [...] Standards of Medical Care in Diabetes 2016, [place] Diabetes Association. Diabetes Care. 2016.39(Suppl 1). BUN 20 7 - 21 mg/dL 07/22/2016 11:05 PM [facility] Creatinine 0.71 0.58 - 0.96 mg/dL 07/22/2016 11:05 PM [facility] Sodium 140 136 - 144 mmol/L 07/22/2016 11:05 PM [facility] Potassium 4.6 3.7 - 5.1 mmol/L 07/22/2016 11:05 PM [facility] Chloride 102 97 - 105 mmol/L 07/22/2016 11:05 PM [facility] CO2 24 22 - 30 mmol/L 07/22/2016 11:05 PM EDT [facility] Anion Gap 14 9 - 18 mmol/L 07/22/2016 11:05 PM EDT [facility] ALT 11 7 - 38 U/L 07/22/2016 11:05 PM EDT [facility] eGFR- >60 07/22/2016 11:05 PM EDT [facility] eGFR-All Other Races >60 . 07/22/2016 11:05 PM EDT [facility] Comment: eGFR (Estimated GFR) Units [...] MD LABORATORY Final Result Performing Organization Address City/State/[facility] Co de Phone Number [facility] [address] [facility] [place] [address] * BMD BONE DENSITY (01/22/2016 1:31 PM [...] machine for accurate comparison. FOR MORE INFORMATION: [facility]osis [facility] Metabolic Bone Disease: www.ccf.org/arthritis/osteo National Osteoporosis Foundation: www.nof.org International Society of Clinical Densitometry www.iscd.org General Cargo Clerk: [id number] Transcribe Date/Time: Jan 22 2016 1:38P Dictated [...] , Gender: Female SCANNER INFORMATION: DXA Model: Smartsheet W (S/N: [id number]) SITE SCANNED: Lumbar spine and bilateral hips [...] IF GREATER THAN OR EQUAL TO 0.04g/cm2 Shirlye Antony MD BONE DENSITY Final Result from Last 3 Months or Most Recently Relevant to Health Maintenance Insurance [facility] MEDICARE Care Teams Key Bed Installer Relationship Specialty Start Date End Date Miguel Ray II, MD PCP - General Internal Medicine 08/02/12
--- OUTSIDE RECORDS SUMMARY | 2024-11-27 10:36 | XMS_ITS | Encounter Summary ---
Author Organization [facility] Address [address] [facility] [place] [address] Care Team Providers Care Detention Sergeant Name Role Phone Miguel Ray MD Unavailable [phone] Miguel Ray MD Primary Care Provider Encounter Details Date Type Department Care Team (Late Contact Info) Description 11/10/2022 Abstract [facility] [place] [facility] [address] [facility] 110 [place] [address] Miguel Ray MD [address] [place] [address] [place] [address] Social History Tobacco Use Types Packs/Day Years [...] EDT Office Visit [facility] [address] [place] [address] Yaniv Jarrett, DPM FACFAS [address] [facility] [place] [address] 02/26/2025 9:30 AM EST Office Visit [facility] [place] [facility] [address] [place] [address] [place] [address] Miguel Ray MD [address] [facility] [address] [place] [address] documented as of this encounter Visit Diagnoses Not on filedocumented in this encounter Care Teams Detention Sergeant Relationship Specialty Start Date End Date Miguel Ray MD [address] [place] [address] [place] [address] PCP - [employer] 04/12/22 Miguel Ray MD [address] [place] [address] [place] [address] PCP - General Internal Medicine 09/08/22 documented as of this encounter
--- OUTSIDE RECORDS SUMMARY | 2024-11-27 10:36 | XMS_ITS | Encounter Summary ---
Author Organization [facility] Address [address] [facility] [place] [address] Care Team Providers Care Mushroom Laborer Name Role Phone Miguel Ray MD Unavailable [phone] Miguel Ray MD Primary Care Provider [phone] Encounter Details Date Type Department Care Team (Late Contact Info) Description 10/26/2022 Abstract [facility] [place] [facility] [address] [facility] 110 [place] [address] Miguel Ray MD [address] [facility] 110 [place] [address] Social History Tobacco Use Types Packs/Day Years [...] EDT Office Visit [facility] [address] [place] [address] Yaniv Jarrett, DPM FACFAS [address] [facility] [place] [address] 02/26/2025 9:30 AM EST Office Visit [facility] [place] [facility] [address] [place] [address] [place] [address] Miguel Ray MD [address] [facility] 110 [place] [address] documented as of this encounter Visit Diagnoses Not on filedocumented in this encounter Care Teams Mushroom Laborer Relationship Specialty Start Date End Date Miguel Ray MD [address] [facility] 110 [place] [address] PCP - Humana 04/12/22 iMguel Ray MD [address] [facility] 110 [place] [address] PCP - General Internal Medicine 09/08/22 documented as of this encounter
--- OUTSIDE RECORDS SUMMARY | 2024-11-27 10:36 | XMS_ITS | Encounter Summary ---
Author Organization [facility] Address [address] [facility] [place] [address] Care Team Providers Care Seamless Tube Mill Operator Name Role Phone Miguel Ray MD Unavailable [phone] Miguel Ray MD Primary Care Provider [phone] Encounter Details Date Type Department Care Team (Late Contact Info) Description 09/29/2024 Abstract [facility] [place] [facility] 112 [facility] 110 [place] [address] Miguel Ray MD 112 [facility] 110 [place], [place] [address] Social History Tobacco Use Types Packs/Day Years [...] EDT Office Visit [facility] [address] [place] [address] Yaniv Jarrett, DPM FACFAS [address] [facility] [place] [address] 02/26/2025 9:30 AM EST Office Visit [facility] [place] [facility] [address] [facility] 110 [place] [address] Miguel Ray MD [address] [facility] 110 [place] [address] documented as of this encounter Visit Diagnoses Not on filedocumented in this encounter Additional Health Concerns Assessment Noted Time PHQ-9 Depression Total Score: 1 09/30/19 24 10:00 AM EDT documented as of this encounter Care Teams Seamless Tube Mill Operator Relationship Specialty Start Date End Date Miguel Ray MD [address] [facility] 110 [place] [address] PCP - Hum[employer] 04/12/22 Miguel Ray MD [address] [facility] 110 [place] [address] PCP - General Internal Medicine 09/08/22 documented as of this encounter
--- OUTSIDE RECORDS SUMMARY | 2024-11-27 10:36 | XMS_ITS | Encounter Summary ---
Author Organization [facility] Address [address] [place] [address] Phone Care Team Providers Care Test Puller Name Role Phone Miguel Ray MD Primary Care Provider [phone] Encounter Details Date Type Department Care Team (Late Contact Info) Description 05/17/2024 Scanned Document [facility] [address] [place] [address] Scanning, Generic Provider Social History Tobacco Use [...] Info) Description 12/12/2024 8:45 AM EDT Appointment [address] [place] [address] 11/12/2025 9:00 AM EDT Office Visit [address] [place] [address] Jaleesa Cai MD [address] [facility] 130 [place], [place] [address] documented as of this encounter Visit Diagnoses Not on filedocumented in this encounter Additional Health Concerns Assessment Noted Time A fall risk assessment has been complete d for the patient 11/08/2023 10:45 AM EDT documented as of this encounter Care Teams Test Puller Relationship Specialty Start Date End Date Miguel Ray MD [address] [facility] 110 [place] [address] PCP - General 11/04/22 documented as of this encounter
--- OUTSIDE RECORDS SUMMARY | 2024-11-27 10:36 | XMS_ITS | Encounter Summary ---
Author Organization [facility] Address [address] [facility] [place] [address] Care Team Providers Care Catalogue Clerk Name Role Phone Miguel Ray MD Unavailable Miguel Ray MD Primary Care Provider [phone] Encounter Details Date Type Department Care Team (Late Contact Info) Description 11/04/2022 Abstract [facility] [place] [facility] [address] [facility] [address] [place] [address] Miguel Ray MD [address] [facility] 110 [place] [address] Social History Tobacco Use Types Packs/Day Years [...] EDT Office Visit [facility] [address] [place] [address] Yaniv Jarrett, DPM FACFAS [address] [facility] [place] [address] 02/26/2025 9:30 AM EST Office Visit [facility] [place] [facility] [address] [place] [address] [place] [address] Miguel Ray MD [address] [facility] [address] [place] [address] documented as of this encounter Visit Diagnoses Not on filedocumented in this encounter Care Teams Catalogue Clerk Relationship Specialty Start Date End Date Miguel Ray MD [address] [facility] [address] [place] [address] PCP - [employer] 04/12/22 Miguel Ray MD [address] [facility] [address] [place] [address] PCP - General Internal Medicine 09/08/22 documented as of this encounter
--- OUTSIDE RECORDS SUMMARY | 2024-11-27 10:36 | XMS_ITS | Encounter Summary ---
Author Organization [facility] Address [address] [place] [address] Care Team Providers Care Pharmacist In Charge Owner Name Role Phone Miguel Ray MD Unavailable [phone] Miguel Ray MD Primary Care Provider [phone] Encounter Details Date Type Department Care Team (Late Contact Info) Description 01/25/2023 Abstract [facility] [place] [facility] [address] [facility] 110 [place] [address] Dorota Boyle PA [address] [facility] 110 [place] [address] Social History Tobacco Use Types Packs/Day Years [...] EDT Office Visit [facility] [address] [place] [address] Yaniv Jarrett, DPM FACFAS [address] [facility] [place] [address] 02/26/2025 9:30 AM EST Office Visit [facility] [place] [facility] [address] [facility] [address] [place] [address] Miguel Ray MD [address] [facility] [address] [place] [address] documented as of this encounter Visit Diagnoses Not on filedocumented in this encounter Care Teams Pharmacist In Charge Owner Relationship Specialty Start Date End Date Miguel Ray MD [address] [facility] [address] [place] [address] PCP - [employer] 04/12/22 Miguel Ray MD [address] [facility] [address] [place] [address] PCP - General Internal Medicine 09/08/22 documented as of this encounter
--- OUTSIDE RECORDS SUMMARY | 2024-11-27 10:36 | XMS_ITS | Encounter Summary ---
Author Organization [facility] Address [address] [place] [address] Care Team Providers Care Software Asset Management Analyst Name Role Phone Miguel Ray MD Unavailable [phone] Miguel Ray MD Primary Care Provider [phone] Encounter Details Date Type Department Care Team (Late st Contact Info) Description 10/11/2022 Abstract [facility] [place] [facility] [address] [facility] 110 [place] [address] Miguel Ray MD [address] [facility] [address] [place] [address] Social History Tobacco Use Types Packs/Day Years [...] EDT Office Visit [facility] [address] [place] [address] Yaniv Jarrett, DPM FACFAS [address] [facility] [place] [address] 02/26/2025 9:30 AM EST Office Visit [facility] [place] [address] [facility] [address] [place] [address] Miguel Ray MD [address] [facility] 110 [place] [address] documented as of this encounter Visit Diagnoses Not on filedocumented in this encounter Care Teams Software Asset Management Analyst Relationship Specialty Start Date End Date Miguel Ray MD [address] [facility] 110 [place] [address] PCP - [employer] 04/12/22 Miguel Ray MD [address] [facility] [address] [place] [address] PCP - General Internal Medicine 09/08/22 documented as of this encounter
[2024-11-27 11:30] VITALS: BP 146/73; PULSE 68; TEMP 36.2; O2SAT 99
[2024-11-27 11:48] VITALS: BP 180/135; PULSE 80; O2SAT 95
[2024-11-27] MEDS: BUPIVACAINE HCL 0.25% PF 25 MG/10 ML VIAL 8 ML INJ (11:50)
[2024-11-27 11:51] VITALS: BP 220/98; PULSE 90; O2SAT 98
[2024-11-27] MEDS: LIDOCAINE HCL 2% 400 MG/20 ML MDV INJ (11:51)
--- NOTE | 2024-11-27 11:53 | W.PM.PROCNOT ---
Date of procedure: 11/27/24 Pre-op diagnosis: Pain due to lumbar spondylosis without myelopathy Post-op diagnosis: same as pre-op Procedure: Procedure: Bilateral L4-5, L5-S1 medial branch block Medications: Bupivacaine 0.25% 6cc The patient was seen and examined in the preoperative holding area.? An informed consent was obtained and placed on the chart.? The patient was brought to the medical procedure unit and placed in the prone position.? A timeout was completed verifying correct patient, procedure site, positioning, plan, and special equipment.? Using aseptic technique, the needle was placed at left L4. Under direct fluoroscopic visualization a Quincke-tipped spinal needle was advanced to the junction of the superior articulating process with the transverse process at the designated medial branch segment.? Preceded by negative aspiration, the above-mentioned injectate was placed in 1 mL aliquots.? The procedure was repeated at left L5, S1.? The needle was removed and insertion site was covered. The same procedure, at the same levels, was completed on the right side. The patient was taken to the postprocedural recovery area and monitored for an appropriate length of time before found suitable for discharge in the company of a responsible adult. Anesthesia: Local Surgeon: Michelle Baldwin Pathology: none sent Condition: stable Disposition: no change
== END 2024-11-27 11:58 | disposition home or self-care (01) ==
LOC: SURGOUT 10:33
PROVIDERS: PCP Internal Medicine; Visit Provider Anesthesiology
DX: M47.816 Spondylosis without myelopathy or radiculopathy, lumbar region (principal); M54.50 Low back pain, unspecified; E11.8 Type 2 diabetes mellitus with unspecified complications
CPT/HCPCS: 36415; 64493; 64494; 82948; J0665

== ENCOUNTER 2024-11-29 10:11 | Outpatient (OUT) | payer MEDICARE, SELFPAY ==
--- NOTE | 2024-11-29 10:26 | PM.CN ---
Consult Note: HPI Data of Consult Patient: known to practice within the last 3 years Requesting Physician: Rosenda Israel NP Primary Care Provider: LUPE RUFFIN Consult Narrative Reason for consult: back pain Narrative: Oriana Martin a pleasant 84 year old female presents for evaluation of chronic low back pain >3 years with worsening low back pain over the last 5 months. Pt has failed to benefit from > 6 weeks of provider guided HEP, heat, ice, tylenol, cannot take NSAIDs due to GERD. denies falls or injury. pain 0/10 increasing to 5-6/10 with standing, walking, sitting, housework, lifting. Pain mildly improved with lying down. currently utilizing tylenol, gabapentin, and magnesium with mild relief. recently underwent bilateral L4-5 L5-S1 MBB #1 with 100% improvement while anesthetized and ongoing per pt. cc:: CC: Rosenda Israel NP [facility] Medical History (Updated 09/27/24 @ 14:33 by Jamee Canales RN) Rheumatoid arthritis ?M06.9 - Rheumatoid arthritis, unspecified (ICD-10) Diabetes ?E11.9 - Type 2 diabetes mellitus without complications (ICD-10) Kidney stone ?N20.0 - Calculus of kidney (ICD-10) Cirrhosis of liver ?K74.60 - Unspecified cirrhosis of liver (ICD-10) Pacemaker ?Z95.0 - Presence of cardiac pacemaker (ICD-10) High cholesterol ?E78.00 - Pure hypercholesterolemia, unspecified (ICD-10) Heart valve problem ?I38 - Endocarditis, valve unspecified (ICD-10) Surgical History (Updated 09/27/24 @ 14:33 by Jamee Canales RN) History of heart surgery ?Z98.890 - Other specified postprocedural states (ICD-10) History of knee replacement ?Z96.659 - Presence of unspecified artificial knee joint (ICD-10) Hx of cholecystectomy ?Z90.49 - Acquired absence of other specified parts of digestive tract (ICD-10) H/O bariatric surgery ?Z98.84 - Bariatric surgery status (ICD-10) History of back surgery ?Z98.890 - Other specified postprocedural states (ICD-10) Meds Home Medications and Allergies Home Medications ?Medication ?Instructions ?Recorded ?Confirmed ?Type aspirin 81 mg tablet 81 mg PO DAILY 09/27/24 11/27/24 History atorvastatin 40 mg tablet 40 mg PO DAILY 09/27/24 11/27/24 History calcium citrate 200 mg PO DAILY 09/27/24 11/27/24 History cholecalciferol (vitamin D3) 50 2,000 unit PO DAILY 09/27/24 11/27/24 History mcg (2,000 unit) capsule gabapentin 300 mg capsule 300 mg PO DAILY 09/27/24 11/27/24 History glimepiride 2 mg tablet 2 mg PO DAILY 09/27/24 11/27/24 History linagliptin 5 mg tablet (Tradjenta) 5 mg PO DAILY 09/27/24 11/27/24 History lisinopril 2.5 mg tablet 2.5 mg PO DAILY 09/27/24 11/27/24 History magnesium glycinate 100 mg (as 100 mg PO DAILY 09/27/24 11/27/24 History glycinate) tablet (Mag Glycinate) Allergies Allergy/AdvReac Type Severity Reaction Status Date / Time Penicillins Allergy Hives Verified 11/27/24 11:31 Exam Constitutional Documenting provider has reviewed patient's vital signs: yes Common normals: no apparent distress, oriented x3, healthy appearing, alert and well nourished General appearance: cooperative HENMT Common normals: normocephalic, hearing grossly normal bilaterally and moist oral mucous membranes Head and scalp: normocephalic Eye Common normals: PERRL Pupil: PERRL Neck & C-Spine Common normals: full ROM General: normal visual inspection Chest Common normals: inspection of chest normal Respiratory Common normals: normal respiratory effort, no retractions and no use of accessory muscles Back & Pelvis Lumbar spine/lower back: ROM limited, pain with ROM, lumbar spinal tenderness Lumbar spinal tenderness location: L3, L4 and L5 and straight leg raise negative bilaterally Other: sensation intact BLE strength 5/5 in BLE Extremity Common normals: normal to inspection and full ROM Neuro Common normals: oriented x3 Sensorium/orientation: alert Psych Common normals: mental status grossly normal, thought process normal, cooperative, affect normal, speech normal and activity/motor behavior normal Speech: normal speech Thought process: normal thought process Results Additional Findings Additional findings: If on a controlled substance or opioids, I have checked an [place] report on this patient and there are no aberrancies noted in the prescribing history.??If on a controlled substance or opioid a drug screen was completed and reviewed within the last year, and if there has not been a drug screen completed we ordered one today to monitor higher risk, state monitored pain medication use. As part of providing excellent, safe, comprehensive care, the following was completed at our patient's visit: 1. A medication reconciliation and review to ensure accurate knowledge of current/active medications, including asking our patients to inform us about any [id number] medications or herbal remedies/nutritional supplements/alternative remedies. 2. A review to specifically ensure our patients have had annual screening for screening for depression, screening for tobacco use, and screening for unhealthy alcohol use. For concerning screenings had a discussion with the patient, provided patient education, and recommended follow-up with primary care provider when appropriate. If patient noted with a risk of falling, they received education on strength, gait, and balance training to prevent future risk of falling. Portions of this note may have been carried over from the previous visit and updated as appropriate. Please note this office utilizes paper charting in addition to the electronic medical record. A list of current medications, vitals, and PMH is available there as the clinical staff outside of myself do not have access to [employer] charting during the clinic day operations. As part of providing quality comprehensive care the current medications, vitals, and PMH were reviewed in the paper chart. Assessment and Plan Assessment and Plan (1) Lumbar spondylosis: Assessment and Plan: The patient has had over 3 months of moderate to severe low back pain with functional impairment and inadequate response to conservative care including NSAIDS (unless there are contraindication such as concurrent blood thinners), multiple oral or topical pain medications, and home exercise program/physical therapy.? Patient has completed >6 weeks of guided home exercise program and/or formal physical therapy program without relief of their symptoms.? The Oswestry Disability Index was completed, and the patient scored a 18%.? moderate to severe pain with ADLs, standing, walking, lifting, twisting We discussed the risks and benefits of the procedure with the patient, and we are NOT planning on using sedation as outlined in the guidelines from Medicare unless there is a documented reason that sedation would be strongly recommended.?? ?The procedure will be completed with fluoroscopic guidance.? (2) Sacroiliitis: (3) Lumbar stenosis with neurogenic claudication: Assessment and Plan: 10/02/24 left L4-5 L5-S1 TFESI >80% improvement in NC Plan bilateral L4-5 L5-S1 facet medial branch block x2 in consideration of RFA for facet mediated low back pain continue HEP as tolerated continue current medications through PCP f/u after each nerve block
== END 2024-11-29 10:12 | disposition home or self-care (01) ==
LOC: PM 10:11
PROVIDERS: PCP Internal Medicine; Visit Provider Nurse Practitioner
DX: M47.816 Spondylosis without myelopathy or radiculopathy, lumbar region (principal); M46.1 Sacroiliitis, not elsewhere classified; M48.062 Spinal stenosis, lumbar region with neurogenic claudication
CPT/HCPCS: G0463